=== PATIENT | male | born 1960 | race Hispanic/Latino ===

== ENCOUNTER 2025-01-26 20:05 | Inpatient (IN) | payer SELFPAY ==
[~2025-01-26] VITALS: Ht 167.6 cm; Wt 81.6 kg
[2025-01-26 20:54] LABS: IMMATURE GRANULOCYTE ABSOLUTE 0.07 K/uL (0-1); NUCLEATED RED BLOOD CELLS 0.0 % (0.0-0.19); PLATELET COUNT (AUTO) 296 K/uL (130-400); RED BLOOD CELL COUNT(AUTO) 4.29 MIL/uL (4.50-6.20); RED CELL DISTRIBUTION WIDTH 12.7 % (11.0-15.5); WHITE BLOOD COUNT (AUTO) 15.8 K/uL (4.8-10.8)
[2025-01-26 21:05] LABS: CREATININE 1.3 mg/dL (0.5-1.3); GLOMERULAR FILTR. RATE CALC 62.0 mL/min (>90); GLUCOSE,RANDOM 181.0 mg/dL (70-105); SODIUM SERUM 136.0 mmol/L (136-145); UREA NITROGEN, BLOOD 10.0 mg/dL (7-18)
[2025-01-26 21:06] LABS: INR 1.02 (0.85-1.15)
[2025-01-26 21:09] LABS: ALCOHOL, BLOOD 5.0 mg/dL (0-10); ASPARTATE AMINOTRANSFERASE 24.0 U/L (10-37); CREATINE KINASE, TOTAL 120.0 U/L (21-232); TOTAL PROTEIN, SERUM 7.6 g/dL (6.0-8.3)
[2025-01-26] MEDS: 0.9%NACL 1000ML 1,000 ML IV ONE (21:19)
--- NOTE | 2025-01-26 21:36 | ERN ---
ED Note History of Present Illness Stated Complaint: RECTAL BLEED Chief Complaint: Rectal Bleed Time Seen by MD: 20:14 Time Seen by Midlevel: 20:14 Dictation: The patient is a 64-year-old male with a history of alcohol abuse who presents to the emergency department with complaints of syncopal episode onset prior to arrival patient reports he was walking to go to the restroom when he had the syncope episode falling forward hitting his forehead. Patient reports LOC for about 5 minutes. Denies any seizure activity. Patient denies any use of blood thinners. Denies any extremity pain or neck pain. Patient reports that he also started having bright red blood. Reports this has happened in the past and they told him he had an ulcer. Reports an episode of vomiting but reports it was his food. Complaints of lower abdominal pain. Patient reports that he drinks one beer a day. Allergies: Coded Allergies: No Known Allergies (Unverified Allergy, Unknown, 01/26/25) Home Meds No Active Prescriptions or Reported Meds Past Medical History Past Medical History: Other Additional Past Medical Hx: ALCOHOL ABUSE Surgical History: Unknown RN Note Reviewed/Agreed w/PFSH: Yes Review of System Dictation Constitutional: Negative for fever,chills, and weight loss Eyes: Negative for injury, pain,redness, and discharge ENT: Negative for injury,pain or swelling Cardiovascular: Negative for chest pain, palpitations, and edema Respiratory: Negative for shortness of breath, cough, and wheezing, Abdomen/GI: Negative for constipation positive for abdominal pain, nausea, vomiting, blood stools Back: Negative for injury and pain : Negative for injury, bleeding and discharge MS/Extremity: Negative for injury and deformity Skin: Negative for rash, and discoloration positive for laceration to forehead Neuro: Negative for headache, weakness, numbness, tingling, and seizure positive for syncope Psych: Negative for suicide ideation, homicidal ideation, and hallucinations Initial Vital Sign VS Vital Signs Date Time Temp Pulse Resp B/P (MAP) Pulse Ox O2 Delivery O2 Flow Rate FiO2 01/26/25 20:07 98.6 110 16 128/86 100 Room Air 0 01/27/25 01:59 21 Physical Exam Dictation Vital Signs reviewed General Appearance: Alert, oriented x 3, no acute distress, well developed, nourished. Head and Face: non-traumatic. Eyes: PERRL, pink conjunctivas, eyelid no trauma, anterior chamber with arcus senilis. Ears: Pinnas intact and no signs of trauma or erythema ear canals clear and no discharge TM no erythema Nose: No discharge, no bleeding. Oropharynx: Mouth normal, tongue pink. pharynx clear,no erythema, tonsils no exudates, no abscesses noted, mucous membrane moist Neck: Supple, non-tender, no thyromegaly, no masses, no JVD, no bruits Breast:Deferred Chest:No tenderness, no crepitus, no paradoxical movement, no retractions Lungs:Clear, well-ventilated, symmetric, no rales, no wheezing, no rhonchi, no stridor, good breath sounds bilaterally Heart: Regular rate, regular rhythm, no murmur, no gallops Vascular: no peripheral edema, Abdomen: Soft, positive bowel sounds, nondistended, no guarding, nontender, no rebound, no masses no hepatomegaly, no splenomegaly, no Johnson's sign, no hernias. Rectal: Deferred Genital: Deferred Neurological: Normal speech, motor function intact, sensory function intact Musculoskeletal: Neck nontender, full range of motion, back nontender, full range of motion, Extremities: nontender, full range of motion Skin: Color pink, dry, no turgor, no rash, no abrasions, no contusions. Small superficial laceration to right forehead about 1.5 cm Lymphatic: Deferred Results (Laboratory/Radiology) Laboratory/Radiology Laboratory Tests Test 01/29/25 03:29 01/29/25 15:50 01/30/25 03:27 01/30/25 18:15 White Blood Count 10.1 K/uL (4.8-10.8) 7.6 K/uL (4.8-10.8) 7.8 K/uL (4.8-10.8) Red Blood Count 2.57 MIL/uL (4.50-6.20) L 2.27 MIL/uL (4.50-6.20) L 2.82 MIL/uL (4.50-6.20) #L Hemoglobin 8.2 g/dL (14.0-18.0) L 7.3 g/dL (14.0-18.0) L 8.8 g/dL (14.0-18.0) #L 8.9 g/dL (14.0-18.0) L Hematocrit 24.2 % (42-54) L 21.8 % (42-54) L 26.1 % (42-54) L 26.2 % (42-54) L Mean Corpuscular Volume 94.2 fL (79-99) 96.0 fL (79-99) 92.6 fL (79-99) Mean Corpuscular Hemoglobin 31.9 pg (27.0-33.0) 32.2 pg (27.0-33.0) 31.2 pg (27.0-33.0) Mean Corpuscular Hemoglobin Concent 33.9 g/dL (32.0-36.0) 33.5 g/dL (32.0-36.0) 33.7 g/dL (32.0-36.0) Red Cell Distribution Width 12.7 % (11.0-15.5) 13.1 % (11.0-15.5) 13.9 % (11.0-15.5) Platelet Count 231 K/uL (130-400) 214 K/uL (130-400) 217 K/uL (130-400) Mean Platelet Volume 9.8 fL (7.5-10.5) 9.5 fL (7.5-10.5) 9.6 fL (7.5-10.5) Nucleated Red Blood Cells 0.0 % (0.0-0.19) 0.0 % (0.0-0.19) 0.0 % (0.0-0.19) Sodium Level 141 mmol/L (136-145) 142 mmol/L (136-145) 142 mmol/L (136-145) Potassium Level 3.7 mmol/L (3.5-5.1) 3.8 mmol/L (3.5-5.1) 3.5 mmol/L (3.5-5.1) Chloride Level 105 mmol/L (101-111) 108 mmol/L (101-111) 106 mmol/L (101-111) Carbon Dioxide Level 29 mmol/L (21-32) 28 mmol/L (21-32) 29 mmol/L (21-32) Blood Urea Nitrogen 7 mg/dL (7-18) 8 mg/dL (7-18) 5 mg/dL (7-18) L Creatinine 1.1 mg/dL (0.5-1.3) 1.0 mg/dL (0.5-1.3) 0.9 mg/dL (0.5-1.3) Glomerular Filtration Rate Calc 75 mL/min (>90) 85 mL/min (>90) 96 mL/min (>90) Random Glucose 113 mg/dL (70-105) H 92 mg/dL (70-105) 90 mg/dL (70-105) Total Calcium 7.9 mg/dL (8.5-10.1) L 7.2 mg/dL (8.5-10.1) L 7.6 mg/dL (8.5-10.1) L Magnesium Level 2.00 mg/dL (1.80-2.40) 2.00 mg/dL (1.80-2.40) 2.00 mg/dL (1.80-2.40) Total Bilirubin 0.2 mg/dL (0.2-1.0) Aspartate Amino Transf (AST/SGOT) 19 U/L (10-37) Alanine Aminotransferase (ALT/SGPT) 19 U/L (12-78) Alkaline Phosphatase 40 U/L (50-136) L Total Protein 5.8 g/dL (6.0-8.3) L Albumin 2.6 g/dL (3.5-5.0) L Test 01/30/25 18:30 01/31/25 04:28 White Blood Count 9.8 K/uL (4.8-10.8) # 10.4 K/uL (4.8-10.8) Red Blood Count 2.86 MIL/uL (4.50-6.20) L 2.65 MIL/uL (4.50-6.20) L Hemoglobin 9.0 g/dL (14.0-18.0) L 8.4 g/dL (14.0-18.0) L Hematocrit 26.5 % (42-54) L 24.3 % (42-54) L Mean Corpuscular Volume 92.7 fL (79-99) 91.7 fL (79-99) Mean Corpuscular Hemoglobin 31.5 pg (27.0-33.0) 31.7 pg (27.0-33.0) Mean Corpuscular Hemoglobin Concent 34.0 g/dL (32.0-36.0) 34.6 g/dL (32.0-36.0) Red Cell Distribution Width 14.2 % (11.0-15.5) 14.2 % (11.0-15.5) Platelet Count 293 K/uL (130-400) # 267 K/uL (130-400) Mean Platelet Volume 9.8 fL (7.5-10.5) 9.7 fL (7.5-10.5) Immature Granulocyte % (Auto) 1.4 % (0-1) H 0.5 % (0-1) Neutrophils (%) (Auto) 58.8 % (40.0-77.0) 70.1 % (40.0-77.0) Lymphocytes (%) (Auto) 31.1 % (21.0-51.0) 22.2 % (21.0-51.0) Monocytes (%) (Auto) 7.1 % (3.0-13.0) 5.9 % (3.0-13.0) Eosinophils (%) (Auto) 1.2 % (0.0-8.0) 1.1 % (0.0-8.0) Basophils (%) (Auto) 0.4 % (0.0-5.0) 0.2 % (0.0-5.0) Neutrophils # (Auto) 5.7 K/uL (1.8-7.7) 7.3 K/uL (1.8-7.7) Lymphocytes # (Auto) 3.0 K/uL (1.0-4.8) 2.3 K/uL (1.0-4.8) Monocytes # (Auto) 0.7 K/uL (0.1-1.0) 0.6 K/uL (0.1-1.0) Eosinophils # (Auto) 0.12 K/uL (0.00-0.70) 0.11 K/uL (0.00-0.70) Basophils # (Auto) 0.04 K/uL (0.00-0.20) 0.02 K/uL (0.00-0.20) Absolute Immature Granulocyte (auto 0.14 K/uL (0-1) 0.05 K/uL (0-1) Nucleated Red Blood Cells 0.4 % (0.0-0.19) H 0.3 % (0.0-0.19) H REASON: syncope ORDERING PHYSICIAN: JAIRO BUSH PROCEDURE: C SPIN WO - CT CERVICAL SPINE W/O CONTRAST EXAM: CT Cervical Spine Without IV contrast. CLINICAL HISTORY: Patient presents with syncope. TECHNIQUE: Axial computed tomography images of the cervical spine without intravenous contrast. Sagittal and coronal reformatted images were generated. COMPARISON: None provided. FINDINGS: ALIGNMENT: Straightening of the cervical spine. DEGENERATIVE CHANGES: Multilevel spondylotic changes manifest as multilevel marginal osteophytes, multilevel facet joint arthropathy, and uncovertebral hypertrophy. Diffuse disc bulge with bilateral overlapping uncovertebral osteophytes at C4-C5, C5-C6, and C6-C7 levels indents the anterior subarachnoid space. No significant canal stenosis or neural foraminal narrowing is evident. SOFT TISSUES: The prevertebral soft tissues are within normal limits. BONES: No acute fracture or aggressively appearing osseous lesion. IMPRESSION: Straightening of the cervical spine. Multilevel spondylotic changes with disc bulges and uncovertebral osteophytes at C4-C5, C5-C6, and C6-C7 levels indenting the anterior subarachnoid space. No acute fracture or aggressively appearing osseous lesion. /[place] REASON: syncope ORDERING PHYSICIAN: JAIRO BUSH PROCEDURE: CXR1VW - CHEST 1VW EXAM: CR Chest, 1 View. CLINICAL HISTORY: syncope COMPARISON: None provided. FINDINGS: LUNGS: The lungs show no infiltrate or other acute finding. PLEURAL SPACES: No pleural effusion or pneumothorax. MEDIASTINUM: Cardiac size and mediastinal contours within normal limits. BONES: No aggressive appearing osseous lesion seen. IMPRESSION: No acute cardiopulmonary pathology is evident. /[place] REASON: syncope ORDERING PHYSICIAN: JAIRO BUSH PROCEDURE: HEAD WO - CT HEAD/BRAIN W/O CONTRAST EXAM: CT Head Without IV contrast. CLINICAL HISTORY: Syncope. TECHNIQUE: Axial computed tomography images of the head/brain without intravenous contrast. COMPARISON: None provided. FINDINGS: BRAIN: Multiple periventricular hypodensities extending in bilateral fronto-parietal lobes, concerning for chronic microangiopathic ischemic changes. Mild diffuse cerebral atrophy in the form of prominent cortical sulci, basal cisterns, and bilateral sylvian fissures. Chronic lacunar infarcts in the right thalamus and left lentiform nucleus. No evidence of acute hemorrhage. No mass lesion. No CT evidence for acute territorial infarct. No midline shift or extra-axial collections. VENTRICLES: No hydrocephalus. ORBITS: The orbits are unremarkable. SINUSES AND MASTOIDS: The paranasal sinuses and mastoid air cells are clear. BONES: No fracture. SOFT TISSUES: Unremarkable. IMPRESSION: Chronic microangiopathic ischemic changes with periventricular hypodensities. Mild diffuse cerebral atrophy with prominent cortical sulci, basal cisterns, and bilateral sylvian fissures. Chronic lacunar infarcts in the right thalamus and left lentiform nucleus. No acute intracranial abnormality. /[place] SERVICE REASON: Abdominal Pain,rectal bleeding ORDERING PHYSICIAN: JAIRO BUSH PROCEDURE: ABD PEL W - CT ABDOMEN/PELVIS W/CONTRAST EXAM: CT Abdomen and Pelvis with IV contrast CLINICAL HISTORY: Abdominal pain. Rectal bleeding. TECHNIQUE: Thin collimated axial CT images of the abdomen and pelvis with intravenous contrast were obtained with sagittal and coronal reformatted images also submitted. CT scan is done according to ALARA (As Low As Reasonably Achievable). COMPARISON: None. FINDINGS: Unremarkable visualized lung parenchyma. No focal abnormality within the pancreas, spleen, adrenals, or kidneys. 1.4 cm hypodense focus in the left lobe of the liver. A 1.3 cm-sized calculus within the gallbladder lumen with no acute cholecystitis. Scattered colonic diverticula. Soft segment concentric wall thickening around the hepatic flexure of the colon, which could be secondary to acute diverticulitis, the possibility of neoplastic thickening cannot be excluded. There is no abnormality within the urinary bladder. Unremarkable reproductive organs. Abdominal and pelvic vessels are patent. No lymphadenopathy. No free fluid. There is no acute osseous abnormality. IMPRESSIONS: Scattered colonic diverticula. Soft segment concentric wall thickening around the hepatic flexure of the colon, which could be secondary to acute diverticulitis, the possibility of neoplastic thickening cannot be excluded. Cholelithiasis with no acute cholecystitis. /[place] Labs Reviewed?: Yes ED Course ED Course Orders Procedure Category Date Status Time Pathology Request LAB 01/28/25 In Process Tissue 07:20 Cbc Without LAB 01/30/25 Complete Differential 04:00 Basic Metabolic Panel LAB 01/30/25 Complete 04:00 Magnesium LAB 01/30/25 Complete 04:00 Propofol 20ml Vial PHA 01/29/25 In Process (Diprivan 20ml Vial) 14:28 Propofol 20ml Vial PHA 01/29/25 Complete (Diprivan 20ml Vial) 14:28 Lidocaine Pf PHA 01/29/25 Complete 100mg/5ml (2%) 14:29 Cbc Without LAB 01/29/25 Complete Differential 14:43 Comprehensive LAB 01/29/25 Complete Metabolic Panel 14:43 Magnesium LAB 01/29/25 Complete 14:43 Clear Liquid DIET 01/29/25 Complete Dinner Pantoprazole 40mg Tab PHA 01/30/25 In Process (Protonix 40mg Tab 09:00 Rbc-Active Bleeding BBK 01/29/25 Complete 16:27 Infusion Bld Prod Qd PCU 01/29/25 Complete 17:21 Pathology Request LAB 01/29/25 In Process Tissue 14:48 Full Liquid DIET 01/30/25 Complete Breakfast Nm Gi Blood Loss Imag NM 01/30/25 Resulted 11:22 *Nursing CPOE 01/30/25 Transmitted Communication: 11:25 Transfer To: CPOE 01/30/25 Transmitted 12:35 Hemoglobin And LAB 01/30/25 Complete Hematocrit 18:19 Lactated Ringers PHA 01/30/25 In Process 1000ml (Lactated 19:00 Cbc With Differential LAB 01/30/25 Complete 18:58 Pantoprazole 40mg Inj PHA 01/30/25 Complete (Protonix 40mg Inj 20:00 Cbc With Differential LAB 01/31/25 Complete 04:00 Gi Soft/[place] Diet DIET 01/31/25 Transmitted Dinner Cancel Discharge CPOE 01/31/25 Transmitted 14:58 Vital Signs Date Time Temp Pulse Resp B/P (MAP) Pulse Ox O2 Delivery O2 Flow Rate FiO2 01/31/25 20:00 Room Air* 0 21 01/31/25 20:00 98.2 78 18 122/75 98 Room Air 01/31/25 16:00 98.1 73 16 133/70 98 Room Air 01/31/25 12:00 98.1 84 17 121/77 99 Room Air 01/31/25 08:05 99 Room Air* 0 01/31/25 08:00 98.1 72 16 107/65 99 Room Air 01/31/25 04:52 98.2 78 16 123/68 99 Room Air 01/31/25 00:00 98.4 89 16 128/72 97 Room Air 01/30/25 20:00 Room Air* 0 01/30/25 20:00 98.2 88 16 118/78 99 Room Air 01/30/25 16:00 98.1 74 18 146/82 99 Room Air 01/30/25 12:00 97.9 67 16 151/82 100 Room Air 01/30/25 10:15 98 Room Air* 0 01/30/25 08:00 98.1 58 16 128/77 98 Room Air 01/30/25 04:00 98.1 57 17 119/67 99 Room Air 01/30/25 00:00 98.1 53 18 114/71 99 Room Air 01/29/25 21:35 98.2 60 18 127/76 97 Room Air 01/29/25 20:35 98.2 66 18 127/71 98 Room Air 01/29/25 20:00 98 Room Air* 0 01/29/25 19:35 98.2 63 18 114/63 96 Room Air 01/29/25 18:35 60 18 123/76 98 Room Air 01/29/25 17:35 65 18 124/65 98 Room Air 01/29/25 17:05 60 18 116/57 98 Room Air 01/29/25 16:35 66 18 138/86 98 Room Air 01/29/25 16:20 58 18 124/69 98 Room Air 01/29/25 16:05 63 18 122/57 98 Room Air 01/29/25 15:50 58 18 112/67 98 Room Air 01/29/25 15:35 97.9 60 17 119/66 98 Room Air 01/29/25 15:30 97.3 61 15 107/65 97 Room Air 21 01/29/25 15:25 97.3 59 15 106/62 97 Room Air 21 12/18/25 15:20 97.3 61 15 109/62 97 Room Air 21 01/29/25 15:15 97.3 59 15 119/57 97 Room Air 21 01/29/25 15:10 97.3 61 15 118/60 97 Room Air 21 01/29/25 15:05 97.3 59 15 109/65 95 Room Air 21 01/29/25 15:00 97.3 62 15 106/61 96 Nasal Cannula 1.0 22 01/29/25 14:55 97.3 62 15 104/63 96 Nasal Cannula 2.0 24 01/29/25 14:50 97.3 61 15 93/60 96 Nasal Cannula 3.0 28 01/29/25 14:25 Mask 10.0 01/29/25 14:25 Mask 01/29/25 12:00 98.1 66 16 130/75 97 Room Air 01/29/25 09:30 Room Air* 0 21 01/29/25 08:00 98.4 64 17 118/70 97 Room Air 01/29/25 04:00 98.4 64 17 115/79 98 Room Air Medical Decision Making MDM MDM: The patient is a 64-year-old male with a history of alcohol abuse who presents to the emergency department with complaints of syncopal episode onset prior to arrival patient reports he was walking to go to the restroom when he had the syncope episode falling forward hitting his forehead. Patient reports LOC for about 5 minutes. Denies any seizure activity. Patient denies any use of blood thinners. Denies any extremity pain or neck pain. Patient reports that he also started having bright red blood. Reports this has happened in the past and they told him he had an ulcer. Reports an episode of vomiting but reports it was his food. Complaints of lower abdominal pain. Patient reports that he drinks one beer a day. CBC showed leukocytosis, mild normocytic anemia, chemistry showed mild hyp ochloremia, negative troponin, negative liver enzymes, fecal occult was positive. Urinalysis was unremarkable. CT abdomen and pelvis showed diverticulitis. Patient with bright red rectal bleeding. No wounds noted to rectum. Patient received IV fluids, antibiotics. Patient will be admitted for further evaluation and management. Differential diagnosis: Dehydration, GI bleed, diverticulitis, intracerebral hemorrhage, anemia, alcohol intoxication, sepsis Comorbidities: Alcoholism Tests considered and not ordered secondary to shared decision making include: none Previous outside records reviewed: none Risk of complication and/or morbidity or mortality of patient management: The patient meets criteria for admission. Need for emergency major/minor surgery: No There are no social concerns with this patient. I independently interpreted the tests I ordered (labs, urinalysis, etc.). I discussed the case with the hospitalist for admission. Avi CORDON who accepts admission I discussed the case with the following specialists: none. Historian: pateint. I independently interpreted imaging studies and EKGs that I ordered (US, CT, XR, EKG, etc.). External chart review: none. Medical management and examination interpretation discussions were had by me with other qualified healthcare professionals as indicated for the patient's care. DX & DISP Disposition: Inpatient Decision to Admit Date: Jan 27, 2025 Departure Impression: Primary Impression: Diverticulitis Additional Impressions: GI bleed, Leukocytosis, Syncope, Anemia, Forehead laceration Condition: Stable Scripts No Active Prescriptions or Reported Meds Referrals: SELF,REFERRAL (PCP) I have reviewed the case, and I agree with, Diagnosis and Plan JAIRO BUSH [facility] Jan 26, 2025 21:36
--- NOTE | 2025-01-26 21:39 | HMCIMG ---
EXAM: CT Head Without IV contrast. CLINICAL HISTORY: Syncope. TECHNIQUE: Axial computed tomography images of the head/brain without intravenous contrast. COMPARISON: None provided. FINDINGS: BRAIN: Multiple periventricular hypodensities extending in bilateral fronto-parietal lobes, concerning for chronic microangiopathic ischemic changes. Mild diffuse cerebral atrophy in the form of prominent cortical sulci, basal cisterns, and bilateral sylvian fissures. Chronic lacunar infarcts in the right thalamus and left lentiform nucleus. No evidence of acute hemorrhage. No mass lesion. No CT evidence for acute territorial infarct. No midline shift or extra-axial collections. VENTRICLES: No hydrocephalus. ORBITS: The orbits are unremarkable. SINUSES AND MASTOIDS: The paranasal sinuses and mastoid air cells are clear. BONES: No fracture. SOFT TISSUES: Unremarkable. IMPRESSION: Chronic microangiopathic ischemic changes with periventricular hypodensities. Mild diffuse cerebral atrophy with prominent cortical sulci, basal cisterns, and bilateral sylvian fissures. Chronic lacunar infarcts in the right thalamus and left lentiform nucleus. No acute intracranial abnormality. /[place]
--- NOTE | 2025-01-26 21:56 | HMCIMG ---
EXAM: CR Chest, 1 View. CLINICAL HISTORY: syncope COMPARISON: None provided. FINDINGS: LUNGS: The lungs show no infiltrate or other acute finding. PLEURAL SPACES: No pleural effusion or pneumothorax. MEDIASTINUM: Cardiac size and mediastinal contours within normal limits. BONES: No aggressive appearing osseous lesion seen. IMPRESSION: No acute cardiopulmonary pathology is evident. /[place]
[2025-01-27] VITALS (7 sets, daily range): BP systolic 115–169; BP diastolic 66–83; PULSE 57–97; RESP 16–19; TEMP 96.8–98.6; O2SAT 57–99
--- NOTE | 2025-01-27 00:20 | HMCIMG ---
EXAM: CT Abdomen and Pelvis with IV contrast CLINICAL HISTORY: Abdominal pain. Rectal bleeding. TECHNIQUE: Thin collimated axial CT images of the abdomen and pelvis with intravenous contrast were obtained with sagittal and coronal reformatted images also submitted. CT scan is done according to ALARA (As Low As Reasonably Achievable). COMPARISON: None. FINDINGS: Unremarkable visualized lung parenchyma. No focal abnormality within the pancreas, spleen, adrenals, or kidneys. 1.4 cm hypodense focus in the left lobe of the liver. A 1.3 cm-sized calculus within the gallbladder lumen with no acute cholecystitis. Scattered colonic diverticula. Soft segment concentric wall thickening around the hepatic flexure of the colon, which could be secondary to acute diverticulitis, the possibility of neoplastic thickening cannot be excluded. There is no abnormality within the urinary bladder. Unremarkable reproductive organs. Abdominal and pelvic vessels are patent. No lymphadenopathy. No free fluid. There is no acute osseous abnormality. IMPRESSIONS: Scattered colonic diverticula. Soft segment concentric wall thickening around the hepatic flexure of the colon, which could be secondary to acute diverticulitis, the possibility of neoplastic thickening cannot be excluded. Cholelithiasis with no acute cholecystitis. /[place]
[2025-01-27] MEDS: OCTYL 2-CYANOACRYLATE 1 EACH TP ONE (00:25)
[2025-01-27 00:55] LABS: APPEARANCE,URINE CLEAR (CLEAR); GLUCOSE, URINE (UA) NEGATIVE (NEGATIVE); LEUKOCYTE ESTERASE ,URINE NEGATIVE Leu/uL (NEGATIVE); NITRATE,URINE NEGATIVE (NEGATIVE); OCCULT BLOOD,URINE +- (TRACE) (NEGATIVE)
[2025-01-27 00:56] LABS: ADD UA MICROSCOPIC YES
[2025-01-27 01:02] LABS: AMPHET/METH SCREEN,URINE NEGATIVE (NEGATIVE); BARBITURATE SCREEN, URINE NEGATIVE (NEGATIVE); CANNABINOID SCREEN,URINE NEGATIVE (NEGATIVE); COCAINE SCREEN,URINE NEGATIVE (NEGATIVE)
--- NOTE | 2025-01-27 01:40 | HP ---
History of Present Illness Reason for Visit: Hematochezia History of Present Illness Mr. Vitor Cole is a 64-year-old male that was seen and examined today on 01/27/2025. Patient is a good historian of personal health. Patient's daughters at bedside Patient reports that he came to the emergency department with a chief complaint of hematochezia. Onset was 01/26/2025 at 3:00 p.m.. Location is rectum. Duration is on and off. Patient reports three episodes. Character is described as bright red blood in the toilet bowl. There was no alleviating factors. Symptoms are aggravated with defecation. Patient reports associated dizziness and subsequent fall on 3rd episode of hematochezia. Patient also reports that he chronically has constipation. Today in the emergency department WBCs 15.8, left shift neutrophils 82.3%, lactic acid 2.5, urinalysis unremarkable, toxicology unremarkable, stool was positive for occult blood, CT of C-spine shows spondylosis, chest x-ray is unremarkable, CT of the head shows chronic ischemic changes. CT of abdomen and pelvis shows diverticulitis. Emergency room physician recommended that patient be admitted with a diagnosis of GI bleed and diverticulitis. Past Medical History ADDITIONAL PAST MEDICAL HISTORY: [Denies] SOCIAL HISTORY: [Negative for smoking. Patient drinks one beer daily that is 24 oz. Patient denies drug use. Patient lives with his , Oksana Adler. Patient is typically independent of all his ADLs. Patient denies difficulty pain is bills.] SURGICAL HISTORY: [Denies] Review of Systems General: No Fever, No Chills, No Night Sweats, No Fatigue, No Malaise, No Appetite, No Other HEENT: No Head Aches, No Visual Changes, No Eye Pain, No Ear Pain, No Dysphasia, No Sinus Congestion, No Post Nasal Drip, No Sore Throat, No Other Pulmonary: No Dyspnea, No Cough, No Pleuritic Chest Pain, No Other Cardiovascular: Lt Headedness; No: Chest Pain, Palpitations, Orthopnea, Paroxysmal Noc. Dyspnea, Edema, Other Gastrointestinal: Constipation, Hematochezia; No: Nausea, Vomiting, Abdominal Pain, Diarrhea, Melena, Other Genitourinary: No Dysuria, No Frequency, No Incontinence, No Hematuria, No Retention, No Other Musculoskeletal: No: other, neck pain, shoulder pain, arm pain, back pain, hand pain, leg pain, foot pain Skin: No Urticaria, No Rash, No Other Neurological: No: Weakness, Numbness, Incoordination, Change in speech, Confusion, Seizures, Other Allergies: Coded Allergies: No Known Allergies (Unverified Allergy, Unknown, 01/26/25) No Active Prescriptions or Reported Meds Exam Vital Signs Vital Signs Date Time Temp Pulse Resp B/P (MAP) Pulse Ox O2 Delivery O2 Flow Rate FiO2 01/26/25 20:07 98.6 110 16 128/86 100 Room Air 0 General Appearance: Alert, Oriented X3, Cooperative, No acute distress HEENT: Atraumatic, PERRLA, EOMI Respiratory: Clear to auscultation, Normal air movement, NL respiratory effort Cardiovascular: Regular rate, Regular rhythm, Normal S1, Normal S2 Abdominal: Normal bowel sounds, Soft, Other (Positive left lower quadrant tenderness) Extremities: Normal pulses Neuro: Normal speech, Strength at 5/5 X4 ext, Sensation intact, Cranial nerves 3-12 NL Psych/Mental Status: Mental status NL, Mood NL, Thoughts/Content NL Assessment/Plan ASSESSMENT: [ Sepsis, POA, clinical sepsis criteria, heart rate 115, lactic acid 2.5, WBCs 15.8, identified source intra-abdominal GI bleed, POA Diverticulitis, POA Leukocytosis, POA Hyperlactatemia, POA PLAN: [ Admit patient to medical floor as inpatient status. Place patient on telemetry monitoring. Fluid resuscitation with 0.9% NS 30 mL/kg. Empiric antibiotic therapy with Zosyn. Check blood culture, follow up with the results Repeat lactic acid in a.m. Check procalcitonin, follow up with the results Consult Gastroenterology for evaluation and further recommendations. Keep patient NPO. Patient received Protonix 80 mg IV times 1 Protonix drip per hospital protocol Sandostatin 50 mcg IV times 1. Sandostatin drip per hospital protocol. Trend hemoglobin and hematocrit every 6 hours. Type and screen. Transfuse packed red blood cells for hemoglobin less than 7 mg/dL. Consult General surgery Service for evaluation and further recommendations. GI prophylaxis, Protonix drip as stated above DVT prophylaxis, avoid anticoagulation at this time due to impending Gastroenterology and General surgery evaluation place patient on Will's and SCDs. ADVANCED CARE PLANNING 1. Which of the following were discussed? Hospice Care - Yes Therapeutic options - yes Advance Directives - Yes - patient states he does not have any advance directives in place at this time, however his can make decisions for him if he becomes unable. Other discussions - patient wishes to remain a full code at this time 2. Discussed with who? Patient 3. Voluntary nature of this service was explained to the patient? Yes 4. Amount of time spent - ___16 minutes____ 5. Reviewed by Physician? (if this service was performed by NPP) Yes This document was generated in part using voice recognition software, occasional wrong word or sound alike substitutions may have occurred due to the inherent limitations of voice recognition software. Read the chart carefully and recognize using context, where the substitutions have occurred. Although every effort was made to edit the content, receptionist secretary and typing errors may occur ATTESTATION BY PHYSICIAN I have seen and examined the patient. I reviewed the documentation, medical decision making, and treatment plan as noted by the mid-level provider above. I agree with the findings and plan of care.] JUSTO DUQUE [facility] Jan 27, 2025 01:40
--- NOTE | 2025-01-27 01:51 | NUR ---
REPORT GIVEN TO JUAN VELÁZQUEZ
--- NOTE | 2025-01-27 02:03 | NUR ---
REPORT CALLED TO BRITTNEE GAY
[2025-01-27] MEDS: 0.9%NACL 1000ML 1,000 ML IV SCH (02:30)
[2025-01-27] MEDS: 0.9%NACL 1000ML 2,448 ML IV ONE (03:21)
[2025-01-27] MEDS: ZOSYN 3.375GM +NS 50ML IV SCH (03:41)
[2025-01-27 03:45] LABS: IMMATURE GRANULOCYTE ABSOLUTE 0.04 K/uL (0-1); NUCLEATED RED BLOOD CELLS 0.0 % (0.0-0.19); PLATELET COUNT (AUTO) 255 K/uL (130-400); RED BLOOD CELL COUNT(AUTO) 3.82 MIL/uL (4.50-6.20); RED CELL DISTRIBUTION WIDTH 12.7 % (11.0-15.5); WHITE BLOOD COUNT (AUTO) 10.8 K/uL (4.8-10.8)
[2025-01-27 03:56] LABS: INR 1.01 (0.85-1.15)
[2025-01-27 04:03] LABS: CREATININE 0.9 mg/dL (0.5-1.3); GLOMERULAR FILTR. RATE CALC 96.0 mL/min (>90); GLUCOSE,RANDOM 114.0 mg/dL (70-105); SODIUM SERUM 136.0 mmol/L (136-145); UREA NITROGEN, BLOOD 10.0 mg/dL (7-18)
[2025-01-27 04:06] LABS: PHOSPHORUS 3.8 mg/dL (2.5-4.9)
[2025-01-27] MEDS ORDERED: IOHEXOL-350 75 ML VIAL IV ONE (07:15)
--- NOTE | 2025-01-27 08:38 | EKG ---
[facility] Test Date: 2025-01-26 Test Time: 21:13:18 Pat Name: JOSUÉ WATSON Department[facility] Patient ID: [id number] Room: 426 1 Gender: M Box Toe Buffer: 1869 : 1960 Requested By: JAIRO BUSH Order Number: [id number] Reading MD: Surinder Gillette Measurements Intervals [place] Rate: 95 P: 33 IN: 160 QRS: 19 QRSD: 85 T: 31 QT: 345 QTc: 434 Interpretive Statements Sinus rhythm No previous ECG available for comparison Electronically Signed On 01-27-2025 23:47:26 SENIOR TECHNICAL TRAINER by Surinder Gillette Please click the below link to view image of tracing.
--- NOTE | 2025-01-27 08:47 | NUR ---
DCP: HOME Pt and Oksana Adler live with their daughter Kori Adler. Pt is undocumented, no govt assistance, does not work. Pt able to complete ADLS, uses no DME or in home care services a this time. Community resources given, will return to daughter's home
--- NOTE | 2025-01-27 11:12 | NUR ---
GI CONSULT DR. CANO PAGED FOR NEW CONSULT DARIA ACOSTA NP CALLED BACK AND AWARE OF NEW CONSULT
--- NOTE | 2025-01-27 11:18 | CONS ---
GASTROENTEROLOGY CONSULTATION NOTE Date of Consultation: Jan 27, 2025 Time of Consultation: 11:18 History of Present Illness: This is a 64-year-old male with past medical history of alcohol use who presented due to hematochezia. Patient was found to have dizziness and fall at home. Hemoglobin has been trending down from 13.5-9.6 and imaging revealing acute diverticulitis. No history of EGD or colonoscopy. Review of Systems: CONSTITUTIONAL: No malaise or change in sensation of wellbeing. ENMT: No rhinorrhea, otorrhea, sinus pain, ear ache. CARDIOVASCULAR: No angina, palpitations, orthopnea or paroxysmal dyspnea. RESPIRATORY: No SOB. GASTROINTESTINAL: No abdominal pain, nausea, vomiting, diarrhea, hematemesis, melena or change in the patient's habitual bowel movements consistency/number. GENITOURINARY: No dysuria, hematuria or change in bladder continence. MUSCULOSKELETAL: No new muscle pain or decrease in muscular strength. No new joint swelling, redness or tenderness. SKIN: No new rash. Past Medical History: ADDITIONAL PAST MEDICAL HISTORY: [Denies] SOCIAL HISTORY: [Negative for smoking. Patient drinks one beer daily that is 24 oz. Patient denies drug use. Patient lives with his , Oksana Adler. Patient is typically independent of all his ADLs. Patient denies difficulty pain is bills.] SURGICAL HISTORY: [Denies] Coded Allergies: No Known Allergies (Unverified Allergy, Unknown, 01/26/25) Physical Exam: GEN: Awake, alert, oriented in person, time and place, and in no acute distress. HEENT: No sinus tenderness. Tympanic membranes were not examined. No rhinorrhea. Oral pharyngeal mucosa is pink, moist and within normal limits. Neck is supple with no cervical lymphadenopathy, thyromegaly or JVD. CHEST: Inspection, palpation and percussion of the chest were unremarkable. Lung auscultation revealed normal breath sounds bilaterally. CARDIAC: PMI is within normal limits. Heart sounds are regular. Normal S1, S2. No gallop or murmur. ABD: Soft, non-tender and not distended. No peritoneal signs on palpation. No organomegaly. Normal bowel sounds. EXT: No cyanosis or clubbing. No edema. SKIN: Intact. No rashes. JOINTS: No evidence of synovitis or acute arthritis. NEURO: Alert and oriented to name, place and person. Cranial nerve examination is unremarkable. No focal motor deficits. Normal speech. Gait is normal. Strength is normal. Vital Sign (Last 24 Hours) 01/27/25 01/27/25 02:20 08:00 Temp 98.4 Pulse 64 Resp 18 B/P (MAP) 169/69 Pulse Ox 100 O2 Delivery Room Air O2 Flow Rate 0 FiO2 21 Laboratory: [ ] Laboratory: Test 01/27/25 09:36 01/27/25 03:36 01/27/25 00:48 01/26/25 22:15 Range/Units Hemoglobin 9.6 L 14.0-18.0 g/dL Hematocrit 27.9 #L 42-54 % White Blood Count 10.8 # 4.8-10.8 K/uL Red Blood Count 3.82 L 4.50-6.20 MIL/uL Mean Corpuscular Volume 92.7 79-99 fL Mean Corpuscular Hemoglobin 31.4 27.0-33.0 pg Mean Corpuscular Hemoglobin Concent 33.9 32.0-36.0 g/dL Red Cell Distribution Width 12.7 11.0-15.5 % Platelet Count 255 130-400 K/uL Mean Platelet Volume 9.5 7.5-10.5 fL Immature Granulocyte % (Auto) 0.4 0-1 % Neutrophils (%) (Auto) 80.2 H 40.0-77.0 % Lymphocytes (%) (Auto) 12.9 L 21.0-51.0 % Monocytes (%) (Auto) 6.3 3.0-13.0 % Eosinophils (%) (Auto) 0.1 0.0-8.0 % Basophils (%) (Auto) 0.1 0.0-5.0 % Neutrophils # (Auto) 8.7 H 1.8-7.7 K/uL Lymphocytes # (Auto) 1.4 1.0-4.8 K/uL Monocytes # (Auto) 0.7 0.1-1.0 K/uL Eosinophils # (Auto) 0.01 0.00-0.70 K/uL Basophils # (Auto) 0.01 0.00-0.20 K/uL Absolute Immature Granulocyte (auto 0.04 0-1 K/uL Nucleated Red Blood Cells 0.0 0.0-0.19 % Prothrombin Time 10.7 9.6-11.6 SEC Prothromb Time International Ratio 1.01 0.85-1.15 Activated Partial Thromboplast Time 25.6 L 26.3-35.5 SEC Sodium Level 136 136-145 mmol/L Potassium Level 4.5 3.5-5.1 mmol/L Chloride Level 104 101-111 mmol/L Carbon Dioxide Level 21 21-32 mmol/L Blood Urea Nitrogen 10 7-18 mg/dL Creatinine 0.9 0.5-1.3 mg/dL Glomerular Filtration Rate Calc 96 >90 mL/min Random Glucose 114 H 70-105 mg/dL Lactic Acid Level 1.6 0.8-2.5 mmol/L Total Calcium 7.8 L 8.5-10.1 mg/dL Phosphorus Level 3.8 2.5-4.9 mg/dL Magnesium Level 2.00 1.80-2.40 mg/dL Procalcitonin < 0.05 L 0.05-0.5 ng/mL Urine Color LIGHT-YELLOW YELLOW Urine Appearance CLEAR CLEAR Urine pH 5.5 5.0-8.0 Urine Specific [place] OVER 1.001-1.031 Urine Protein NEGATIVE NEGATIVE mg/dL Urine Glucose (UA) NEGATIVE NEGATIVE mg/dL Urine Ketones NEGATIVE NEGATIVE mg/dL Urine Occult Blood +- (TRACE) H NEGATIVE Urine Nitrate NEGATIVE NEGATIVE Urine Bilirubin NEGATIVE NEGATIVE mg/dL Urine Urobilinogen 0.2 0.2-1.0 mg/dL Urine Leukocyte Esterase NEGATIVE NEGATIVE [place]/uL Urine RBC 2-5 H 0-1 /HPF Urine WBC 0-1 0-1 /HPF Urine Bacteria None None Seen /HPF Urine Hyaline Casts 6-10 H 0-1 /LPF /LPF Urine Opiates Screen NEGATIVE NEGATIVE Urine Barbiturates Screen NEGATIVE NEGATIVE Urine Phencyclidine Screen NEGATIVE NEGATIVE Urine Amphetamines Screen NEGATIVE NEGATIVE Urine Benzodiazepines Screen NEGATIVE NEGATIVE Urine Cocaine Screen NEGATIVE NEGATIVE Urine Marijuana (THC) Screen NEGATIVE NEGATIVE Stool Occult Blood POSITIVE H NEGATIVE Test 01/26/25 20:41 Range/Units Total Bilirubin 0.6 0.2-1.0 mg/dL Direct Bilirubin 0.1 0.0-0.3 mg/dL Aspartate Amino Transf (AST/SGOT) 24 10-37 U/L Alanine Aminotransferase (ALT/SGPT) 29 12-78 U/L Alkaline Phosphatase 76 50-136 U/L Total Creatine Kinase 120 21-232 U/L Troponin I High Sensitivity 22 4-75 ng/L Total Protein 7.6 6.0-8.3 g/dL Albumin 3.4 L 3.5-5.0 g/dL Serum Alcohol 5 0-10 mg/dL Current Medications Medications (Trade) Dose Ordered Sig/Ashley Route PRN Reason Start Time Stop Time Status Last Admin Dose Admin Acetaminophen (TYLenol 325MG TAB) 650 mg Q6H PRN PO TEMPERATURE GREATER THAN 101.5 01/27/25 02:30 02/26/25 02:29 Hydralazine HCl (APRESOLine 20MG INJ) 10 mg Q6H PRN IV For:SBP above 160;DBP above 90 01/27/25 02:30 02/26/25 02:29 Metronidazole/ Sodium Chloride 100 ml @ 100 mls/hr Q8H6 IVPB 01/27/25 06:00 01/27/25 09:58 DC 01/27/25 05:48 100 MLS/HR Morphine Sulfate (morPHINE 4MG SYG) 2 mg Q4H PRN IVP SEVERE PAIN (7-10) 01/27/25 02:30 02/03/25 02:29 Octreotide Acetate 1250 mcg/ Sodium Chloride 250 ml @ 0 mls/hr PROTOCOL IV 01/27/25 02:30 02/26/25 02:29 01/27/25 03:21 5 MLS/HR Ondansetron HCl (zoFRAN 4MG INJ) 4 mg Q6H PRN IV NAUSEA/VOMITING 01/27/25 02:30 02/26/25 02:29 Pantoprazole Sodium 80 mg/ Sodium Chloride 100 ml @ 10 mls/hr Q10H IV 01/27/25 02:30 02/26/25 02:29 01/27/25 03:21 10 MLS/HR Piperacillin Sod/ Tazobactam Sod (Zosyn 3.375gm+NS 50ml) 3.375 gm Q8H IV 01/27/25 03:00 02/06/25 02:59 01/27/25 03:41 3.375 GM Sodium Chloride 1,000 ml @ 100 mls/hr Q10H IV 01/27/25 02:30 02/26/25 02:29 Diagnostics / Radiology: [COPY/PASTE HERE IF NO REPORTS PLEASE DELETE SECTION] Assessment: Hematochezia likely related to Acute diverticulitis Alcohol abuse Anemia Plan: EGD in am to r/o any upper GI pathology Treat diverticulitis with plan for outpatient colonoscopy in 6-8 weeks DARIA ACOSTA CONCRETE ANALYST Jan 27, 2025 11:18
[2025-01-27] MEDS ORDERED: COMPOUND IV REFRIGERATED 1 EACH IVSOLN MISC PRN (11:30)
[2025-01-27] MEDS ORDERED: PHARMACY COMMUNICATION MISC PRN (12:30)
[2025-01-27] MEDS: THIAMINE HCL 100 MG, FOLic ACID 5 MG/ML VIAL 1 MG, M.V.I. IV [ADULT] 10 ML in 0.9%NACL ... IV SCH (15:48)
--- NOTE | 2025-01-27 19:39 | CONS ---
GENERAL SURGERY CONSULTATION NOTE DATE OF CONSULTATION: Jan 27, 2025 TIME OF CONSULTATION: 19:36 CONSULTING SERVICE: Lili Pearson MD REQUESTING PHYSICAIN: [ ] REASON FOR CONSULTATION: [ ] GI bleed Lower GI bleed HISTORY OF PRESENT ILLNESS: [ ] 64-year-old male who presented with bleeding per rectum Said he started two days prior denied any abdominal pain Denied constipation Never had this kind of problem before He has never had a colonoscopy before PAST MEDICAL HISTORY: [ ] Non PAST SURGICAL HISTORY: [ ] Non FAMILY HISTORY: [ ] Positive for diabetes No family history of colon cancer SOCIAL HISTORY: [ ] No smoking No alcohol Current Medications Medications (Trade) Dose Ordered Sig/Ashley Route Start Time Stop Time Status Last Admin Dose Admin Metronidazole/ Sodium Chloride 100 ml @ 100 mls/hr Q8H6 IVPB 01/27/25 06:00 01/27/25 09:58 DC 01/27/25 05:48 100 MLS/HR Octreotide Acetate 1250 mcg/ Sodium Chloride 250 ml @ 0 mls/hr PROTOCOL IV 01/27/25 02:30 02/26/25 02:29 01/27/25 03:21 5 MLS/HR Pantoprazole Sodium 80 mg/ Sodium Chloride 100 ml @ 10 mls/hr Q10H IV 01/27/25 02:30 02/26/25 02:29 01/27/25 13:28 10 MLS/HR Piperacillin Sod/ Tazobactam Sod (Zosyn 3.375gm+NS 50ml) 3.375 gm Q8H IV 01/27/25 03:00 02/06/25 02:59 01/27/25 11:29 3.375 GM Sodium Chloride 1,000 ml @ 100 mls/hr Q10H IV 01/27/25 02:30 02/26/25 02:29 Thiamine HCl 100 mg/Folic Acid 1 mg/Multivitamins/ Minerals 10 ml/ Sodium Chloride 1,011.2 ml @ 100 mls/ hr Q24H IV 01/27/25 12:30 01/29/25 22:37 01/27/25 15:48 100 MLS/HR Allergies: Coded Allergies: No Known Allergies (Unverified Allergy, Unknown, 01/26/25) REVIEW OF SYSTEMS: TIER LIFT OPERATOR: [Denies headaches or blurring of vision.] RESP: [No cough, chest pain or SOB.] CVS: [No palpitaions.] GI: [No abdominal pain with nausea and vomiting, no diarrhea or constipation.] NANCY: [No dysuria or hematuria.] Musculoskeletal: [No swelling or joint pain.] BACK: [No pain or swelling.] All other systems are reviewed and essentially negative pertinent positives in HPI. PHYSICAL EXAMINATION: GENERAL: [Patient is lying comfortably in bed, not in any obvious distress.] HEAD: [Normal with no signs of head trauma.] EYES: [Not pale not jaundiced afebrile to touch.] ENT: [ Normal.] NECK: [Supple,no tenderness,no lymphadenopathy,no masses,no thyromegaly ,no bruits, no JVD.] LUNGS: [Clear breath sounds bilaterally. No wheezes, rales, or rhonchi.] HEART: [Regular rate and rhythm. Normal S1 and S2, without murmurs, rub or gallop.] VASC: [No edema. Peripheral pulses normal and equal in all extremities.] ABD: [Bowel sounds present,soft, nontender, no masses, no organomegaly.] : [Normal, no suprapubic tenderness.] LYMPH: [No lymphadenopathy noted.] EXT: [ Warm soft, non tender.] SKIN: [ No rashes or lesions.] NEURO: [ Awake Alert and oriented x3.] Vital Signs (last 8hr) Date Time Temp Pulse Resp B/P (MAP) Pulse Ox O2 Delivery O2 Flow Rate FiO2 01/27/25 16:00 98.2 67 18 115/75 99 Room Air 21 01/27/25 12:00 98.6 62 18 116/69 99 Room Air 21 LABORATORY: [ ] Hematology Labs: Test 01/27/25 14:43 01/27/25 03:36 Range/Units Hemoglobin 9.6 L 14.0-18.0 g/dL Hematocrit 28.0 L 42-54 % White Blood Count 10.8 # 4.8-10.8 K/uL Red Blood Count 3.82 L 4.50-6.20 MIL/uL Mean Corpuscular Volume 92.7 79-99 fL Mean Corpuscular Hemoglobin 31.4 27.0-33.0 pg Mean Corpuscular Hemoglobin Concent 33.9 32.0-36.0 g/dL Red Cell Distribution Width 12.7 11.0-15.5 % Platelet Count 255 130-400 K/uL Mean Platelet Volume 9.5 7.5-10.5 fL Immature Granulocyte % (Auto) 0.4 0-1 % Neutrophils (%) (Auto) 80.2 H 40.0-77.0 % Lymphocytes (%) (Auto) 12.9 L 21.0-51.0 % Monocytes (%) (Auto) 6.3 3.0-13.0 % Eosinophils (%) (Auto) 0.1 0.0-8.0 % Basophils (%) (Auto) 0.1 0.0-5.0 % Neutrophils # (Auto) 8.7 H 1.8-7.7 K/uL Lymphocytes # (Auto) 1.4 1.0-4.8 K/uL Monocytes # (Auto) 0.7 0.1-1.0 K/uL Eosinophils # (Auto) 0.01 0.00-0.70 K/uL Basophils # (Auto) 0.01 0.00-0.20 K/uL Absolute Immature Granulocyte (auto 0.04 0-1 K/uL Nucleated Red Blood Cells 0.0 0.0-0.19 % Chemistry Labs: Test 01/27/25 03:36 01/26/25 20:41 Range/Units Sodium Level 136 136-145 mmol/L Potassium Level 4.5 3.5-5.1 mmol/L Chloride Level 104 101-111 mmol/L Carbon Dioxide Level 21 21-32 mmol/L Blood Urea Nitrogen 10 7-18 mg/dL Creatinine 0.9 0.5-1.3 mg/dL Glomerular Filtration Rate Calc 96 >90 mL/min Random Glucose 114 H 70-105 mg/dL Lactic Acid Level 1.6 0.8-2.5 mmol/L Total Calcium 7.8 L 8.5-10.1 mg/dL Phosphorus Level 3.8 2.5-4.9 mg/dL Magnesium Level 2.00 1.80-2.40 mg/dL Procalcitonin < 0.05 L 0.05-0.5 ng/mL Total Bilirubin 0.6 0.2-1.0 mg/dL Direct Bilirubin 0.1 0.0-0.3 mg/dL Aspartate Amino Transf (AST/SGOT) 24 10-37 U/L Alanine Aminotransferase (ALT/SGPT) 29 12-78 U/L Alkaline Phosphatase 76 50-136 U/L Total Creatine Kinase 120 21-232 U/L Troponin I High Sensitivity 22 4-75 ng/L Total Protein 7.6 6.0-8.3 g/dL Albumin 3.4 L 3.5-5.0 g/dL Coagulation Labs: Test 01/27/25 03:36 Range/Units Prothrombin Time 10.7 9.6-11.6 SEC Prothromb Time International Ratio 1.01 0.85-1.15 Activated Partial Thromboplast Time 25.6 L 26.3-35.5 SEC DIAGNOSTICS / RADIOLOGY: [Copy/Paste Echos/Imaging Report here] ASSESSMENT: [] Lower GI bleed No evidence PLAN: [] NPO/IVF/IV ANTIOBIOTICS Labs May need transfusion if hemoglobin is below seven GI for panendoscopy EGD and colonoscopy LILI PEARSON MD Jan 27, 2025 19:39
[2025-01-28] VITALS (22 sets, daily range): BP systolic 86–147; BP diastolic 57–87; PULSE 53–73; RESP 15–20; TEMP 97.1–98.2; O2SAT 99
[2025-01-28 03:59] LABS: NUCLEATED RED BLOOD CELLS 0.0 % (0.0-0.19); PLATELET COUNT (AUTO) 208.0 K/uL (130-400); RED BLOOD CELL COUNT(AUTO) 2.83 MIL/uL (4.50-6.20); RED CELL DISTRIBUTION WIDTH 12.8 % (11.0-15.5); WHITE BLOOD COUNT (AUTO) 7.4 K/uL (4.8-10.8)
[2025-01-28 04:10] LABS: CREATININE 1.1 mg/dL (0.5-1.3); GLOMERULAR FILTR. RATE CALC 75.0 mL/min (>90); GLUCOSE,RANDOM 115.0 mg/dL (70-105); SODIUM SERUM 139.0 mmol/L (136-145); UREA NITROGEN, BLOOD 8.0 mg/dL (7-18)
[2025-01-28] MEDS ORDERED: LIDOCAINE PF 100MG/5ML (2%) SYRINGE 5ML ONE (07:06)
--- NOTE | 2025-01-28 07:34 | NUR ---
PATIENT REPORT RECEIVED REPORT FROM [facility] PACU NURSE. PATIENT UNDERWENT UPPER EGD WITH . NORMAL EXAM. GASTRITIS-WAS BIOPSIED. PATIENT TO CONTINUE WITH A CLEAR LIQUID DIET. RECOMMEND COLONOSCOPY. VITALS; BLOOD PRESSURE 115/67, HR-61, SPO2-98% ON RA.
--- NOTE | 2025-01-28 07:53 | NUR ---
UNIT ARRIVAL PATIENT ARRIVED ON UNIT PATIENT ALERT AND ORIENTATED, STABLE, NO DISTRESS NOTED POST OP VITALS INITIATED BED LOCKED, LOWEST POSTION PRESENT IN ROOM
--- NOTE | 2025-01-28 12:03 | PN ---
[facility] PROGRESS NOTE Date of Service: Jan 28, 2025 Time of Service: 11:38 SUBJECTIVE: [Patient evaluated in the room, patient has been having abdominal issue in the past, but daughter stated that he would not really report. Patient started having bloody stool, his diet declined, but he continued consuming ETOH. Daughter reported that he drinks beer daily. His initial H/H was 1.5/40.2, now patient's H/H is slowly downtrending. He s/p EGD for which they noted gastritis, he was bx. He continued to be on IV antbx for diverticulitis, recommendation on diet is clear for now, so far tolerating well. ] REVIEW OF SYSTEMS CONSTITUTIONAL: Denies fevers, chills, or night sweats. No unintentional weight loss reported. NEUROLOGICAL: Denies headache, amaurosis fugax, motor weakness, sensory deficit, vertigo/spinning sensation, gait abnormalities, or tremors. ENT: No hearing loss, otalgia, otorrhea, rhinitis, rhinorrhea, hoarseness, or sore throat. CARDIOVASCULAR: Denies any exertional angina, dyspnea on exertion, orthopnea, paroxysmal nocturnal dyspnea, palpitations, life-threatening arrhythmias, claudication. PULMONARY: Denies any shortness of breath, cough, phlegm/sputum, hemoptysis, pleuritic chest pain. SLEEP: Denies morning headaches, daytime somnolence or napping. Denies difficulty falling asleep, staying asleep, waking from sleep. Denies knowledge of snoring. GASTROINTESTINAL: Denies any type of dysphagia to either liquids or solids. Denies nausea, vomiting, pyrosis, early satiety, abdominal pain, diarrhea, constipation, or changes in stool consistency or caliber. Denies coffee-ground emesis, hematemesis, hematochezia, or melanotic stools. GENITOURINARY: Denies frequency, urgency, nocturia, hematuria or incontinence (Storage/Irritative symptoms.) Low urinary stream, straining to void, urinary intermittency or hesitancy, splitting of the voiding stream, terminal dribbling. ENDOCRINOLOGIC: Denies polyuria, polydipsia, polyphagia or heat/cold intolerances. HEMATOLOGIC: Denies thrombophilia/previous clots, or coagulopathy/bleeding disorders. ONCOLOGIC: Denies personal history of malignancy. DERMATOLOGIC: Denies rashes or pruritus. PSYCHIATRIC: Denies any suicidal or homicidal ideation. Denies hallucinations. PHYSICAL EXAM GENERAL APPEARANCE: The patient is awake, alert, and oriented, in no acute cardiopulmonary distress. NEUROLOGICAL: Cranial nerves II-XII grossly intact. Motor is 5/5 in bilateral upper and lower extremities proximal to distal. No sensory deficits. HEENT: Face is symmetric. Pupils are equal and reactive. Extraocular movements are intact. NECK: Supple. No JVD. No thyromegaly. No submental, submandibular, pre- /postauricular, occipital or supraclavicular lymphadenopathy. CHEST: Normal chest expansion. No Telemetry. LUNGS: Absence of any rales, rhonchi or any wheezing. CARDIOVASCULAR: Regular. S1 and S2 normal. No appreciable rubs, murmurs or gallops. ABDOMEN: Soft, nontender, and nondistended. There is no rebound, voluntary guarding, or rigidity. : Deferred. No Payne. EXTREMITIES: Non-edematous and not cyanotic. No clubbing. Good capillary refill. SKIN: No skin breakdown. Vital Signs (last 8hr) Date Time Temp Pulse Resp B/P (MAP) Pulse Ox O2 Delivery O2 Flow Rate FiO2 01/28/25 10:00 59 17 107/62 98 Room Air 01/28/25 09:30 97.3 56 17 123/72 97 Room Air 01/28/25 09:00 97.3 53 17 111/67 98 Room Air 01/28/25 08:30 97.3 53 17 105/65 97 Room Air 01/28/25 08:15 97.3 57 16 113/66 17 Room Air 01/28/25 08:00 97.3 56 16 109/65 97 Room Air 01/28/25 07:55 97.2 65 15 115/63 97 Room Air 21 01/28/25 07:50 97.2 63 15 116/64 96 Room Air 21 01/28/25 07:45 97.2 67 15 111/65 96 Room Air 21 01/28/25 07:40 97.2 62 15 110/63 96 Room Air 21 01/28/25 07:35 97.2 65 15 112/63 96 Room Air 21 01/28/25 07:30 97.2 63 15 112/65 96 Room Air 21 12/17/25 07:25 97.2 65 15 110/67 97 Nasal Cannula 1.0 28 01/28/25 07:20 97.2 65 15 104/57 98 Nasal Cannula 3.0 01/28/25 06:55 Mask 01/28/25 06:55 Mask 10.0 01/28/25 04:00 97.9 57 18 106/66 94 Room Air LABS: Laboratory: Test 01/28/25 09:01 01/28/25 03:36 01/27/25 03:36 01/27/25 00:48 Range/Units Hemoglobin 9.3 L 14.0-18.0 g/dL Hematocrit 27.8 L 42-54 % White Blood Count 7.4 # 4.8-10.8 K/uL Red Blood Count 2.83 #L 4.50-6.20 MIL/uL Mean Corpuscular Volume 93.3 79-99 fL Mean Corpuscular Hemoglobin 32.2 27.0-33.0 pg Mean Corpuscular Hemoglobin Concent 34.5 32.0-36.0 g/dL Red Cell Distribution Width 12.8 11.0-15.5 % Platelet Count 208 130-400 K/uL Mean Platelet Volume 9.5 7.5-10.5 fL Nucleated Red Blood Cells 0.0 0.0-0.19 % Sodium Level 139 136-145 mmol/L Potassium Level 4.6 3.5-5.1 mmol/L Chloride Level 106 101-111 mmol/L Carbon Dioxide Level 30 21-32 mmol/L Blood Urea Nitrogen 8 7-18 mg/dL Creatinine 1.1 0.5-1.3 mg/dL Glomerular Filtration Rate Calc 75 >90 mL/min Random Glucose 115 H 70-105 mg/dL Total Calcium 7.9 L 8.5-10.1 mg/dL Magnesium Level 2.10 1.80-2.40 mg/dL Immature Granulocyte % (Auto) 0.4 0-1 % Neutrophils (%) (Auto) 80.2 H 40.0-77.0 % Lymphocytes (%) (Auto) 12.9 L 21.0-51.0 % Monocytes (%) (Auto) 6.3 3.0-13.0 % Eosinophils (%) (Auto) 0.1 0.0-8.0 % Basophils (%) (Auto) 0.1 0.0-5.0 % Neutrophils # (Auto) 8.7 H 1.8-7.7 K/uL Lymphocytes # (Auto) 1.4 1.0-4.8 K/uL Monocytes # (Auto) 0.7 0.1-1.0 K/uL Eosinophils # (Auto) 0.01 0.00-0.70 K/uL Basophils # (Auto) 0.01 0.00-0.20 K/uL Absolute Immature Granulocyte (auto 0.04 0-1 K/uL Prothrombin Time 10.7 9.6-11.6 SEC Prothromb Time International Ratio 1.01 0.85-1.15 Activated Partial Thromboplast Time 25.6 L 26.3-35.5 SEC Lactic Acid Level 1.6 0.8-2.5 mmol/L Phosphorus Level 3.8 2.5-4.9 mg/dL Procalcitonin < 0.05 L 0.05-0.5 ng/mL Urine Color LIGHT-YELLOW YELLOW Urine Appearance CLEAR CLEAR Urine pH 5.5 5.0-8.0 Urine Specific [place] OVER 1.001-1.031 Urine Protein NEGATIVE NEGATIVE mg/dL Urine Glucose (UA) NEGATIVE NEGATIVE mg/dL Urine Ketones NEGATIVE NEGATIVE mg/dL Urine Occult Blood +- (TRACE) H NEGATIVE Urine Nitrate NEGATIVE NEGATIVE Urine Bilirubin NEGATIVE NEGATIVE mg/dL Urine Urobilinogen 0.2 0.2-1.0 mg/dL Urine Leukocyte Esterase NEGATIVE NEGATIVE [place]/uL Urine RBC 2-5 H 0-1 /HPF Urine WBC 0-1 0-1 /HPF Urine Bacteria None None Seen /HPF Urine Hyaline Casts 6-10 H 0-1 /LPF /LPF Urine Opiates Screen NEGATIVE NEGATIVE Urine Barbiturates Screen NEGATIVE NEGATIVE Urine Phencyclidine Screen NEGATIVE NEGATIVE Urine Amphetamines Screen NEGATIVE NEGATIVE Urine Benzodiazepines Screen NEGATIVE NEGATIVE Urine Cocaine Screen NEGATIVE NEGATIVE Urine Marijuana (THC) Screen NEGATIVE NEGATIVE Test 01/26/25 22:15 01/26/25 20:41 Range/Units Stool Occult Blood POSITIVE H NEGATIVE Total Bilirubin 0.6 0.2-1.0 mg/dL Direct Bilirubin 0.1 0.0-0.3 mg/dL Aspartate Amino Transf (AST/SGOT) 24 10-37 U/L Alanine Aminotransferase (ALT/SGPT) 29 12-78 U/L Alkaline Phosphatase 76 50-136 U/L Total Creatine Kinase 120 21-232 U/L Troponin I High Sensitivity 22 4-75 ng/L Total Protein 7.6 6.0-8.3 g/dL Albumin 3.4 L 3.5-5.0 g/dL Serum Alcohol 5 0-10 mg/dL Current Medications Medications (Trade) Dose Ordered Sig/Ashley Route PRN Reason Start Time Stop Time Status Last Admin Dose Admin Acetaminophen (TYLenol 325MG TAB) 650 mg Q6H PRN PO TEMPERATURE GREATER THAN 101.5 01/27/25 02:30 02/26/25 02:29 Chlordiazepoxide HCl (LIBrium 25 MG CAP) 25 mg Q2H PRN PO ALCOHOL WITHDRAWAL PROTOCOL 01/27/25 12:30 02/03/25 12:29 Diazepam (VALium 5 MG/ML 2 ML SYG) 10 mg Q4H PRN IVP ALCOHOL WITHDRAWAL PROTOCOL 01/27/25 12:30 02/03/25 12:29 Hydralazine HCl (APRESOLine 20MG INJ) 10 mg Q6H PRN IV For:SBP above 160;DBP above 90 01/27/25 02:30 02/26/25 02:29 Metronidazole/ Sodium Chloride 100 ml @ 100 mls/hr Q8H6 IVPB 01/27/25 06:00 01/27/25 09:58 DC 01/27/25 05:48 100 MLS/HR Morphine Sulfate (morPHINE 4MG SYG) 2 mg Q4H PRN IVP SEVERE PAIN (7-10) 01/27/25 02:30 02/03/25 02:29 Octreotide Acetate 1250 mcg/ Sodium Chloride 250 ml @ 0 mls/hr PROTOCOL IV 01/27/25 02:30 02/26/25 02:29 01/27/25 03:21 5 MLS/HR Ondansetron HCl (zoFRAN 4MG INJ) 4 mg Q6H PRN IV NAUSEA/VOMITING 01/27/25 02:30 02/26/25 02:29 Pantoprazole Sodium 80 mg/ Sodium Chloride 100 ml @ 10 mls/hr Q10H IV 01/27/25 02:30 02/26/25 02:29 01/28/25 01:59 10 MLS/HR Pharmacy Profile Note (Pharmacy Communication) 1 each PROTOCOL PRN MISC ETOH Withdrawal Score changes 01/27/25 12:30 02/03/25 12:29 Piperacillin Sod/ Tazobactam Sod (Zosyn 3.375gm+NS 50ml) 3.375 gm Q8H IV 01/27/25 03:00 02/06/25 02:59 01/28/25 11:28 3.375 GM Sodium Chloride 1,000 ml @ 100 mls/hr Q10H IV 01/27/25 02:30 02/26/25 02:29 Thiamine HCl 100 mg/Folic Acid 1 mg/Multivitamins/ Minerals 10 ml/ Sodium Chloride 1,011.2 ml @ 100 mls/ hr Q24H IV 01/27/25 12:30 01/29/25 22:37 01/27/25 15:48 100 MLS/HR DIAGNOSTICS / RADIOLOGY: [ ] ASSESSMENT: [1. Acute Diverticulitis vs. Colonic Neoplasm (POA): CT abdomen/pelvis shows segmental wall thickening at the hepatic flexure with scattered diverticula. Acute diverticulitis is likely, but underlying colonic neoplasm cannot be excluded. 2. Incidental 1.4 cm Hypodense Liver Lesion (POA): Detected on CT; etiology undetermined. 3. Gallbladder Calculus, No Acute Cholecystitis (POA): Cholelithiasis identified on CT without evidence of acute inflammation. 4. Acute GI Bleed, Downtrending (POA): History of rectal bleeding with improving trend. EGD revealed gastritis. 5. Gastritis (POA): Confirmed on EGD. 6. Alcohol Abuse (POA): Ongoing risk factor; patient on [facility] protocol. PLAN 1. Acute Diverticulitis vs. Colonic Neoplasm: - Admit to medical floor for continued monitoring. - NPO/clear liquid diet; advance as tolerated per GI/surgery recommendations. - Plan for outpatient colonoscopy in 6 weeks after resolution of acute process to rule out malignancy. 2. Incidental Liver Lesion: - No acute intervention required at this time. - Consider outpatient follow-up imaging (e.g., liver protocol MRI or repeat CT) based on risk factors and clinical context. 3. Gallbladder Calculus: - No signs of acute cholecystitis; continue observation. - Monitor for development of biliary symptoms. 4. Acute GI Bleed/Gastritis: - Continue to monitor hemoglobin and hematocrit daily. - Transfuse PRBCs if hemoglobin <7 g/dL or symptomatic anemia. - Continue GI prophylaxis (e.g., PPI). - Maintain clear liquid diet until further recommendations from GI/surgery. 5. Alcohol Abuse: - Continue CIWA protocol and monitor for withdrawal symptoms. - Supportive care and consider social work/addiction counseling as appropriate. 6. General Measures: - Monitor and replete electrolytes as needed. - DVT prophylaxis per protocol. - Repeat labs tomorrow (CBC, BMP, LFTs as indicated). Case discussed with Dr. Keenan; plan as above. Let me know if you need this in a different format or if you want to add any specific orders or details. ATTESTATION BY PHYSICIAN I have seen and examined the patient. I reviewed the documentation, medical decision making, and treatment plan as noted by the mid-level provider above. I agree with the findings and plan of care. DOUGIE KEENAN MD, JANICE B [facility] Jan 28, 2025 12:03
[2025-01-28 12:13] LABS: % IRON SATURATION 48.0 % (30-44); IRON, SERUM 134.0 mcg/dL (65-175)
[2025-01-28] MEDS: PEG 3350/NA SULF,BICARB,CL/KCL 4000 ML SOLN PO ONE (16:55)
[2025-01-28 23:53] LABS: NUCLEATED RED BLOOD CELLS 0.0 % (0.0-0.19); PLATELET COUNT (AUTO) 277.0 K/uL (130-400); RED BLOOD CELL COUNT(AUTO) 3.12 MIL/uL (4.50-6.20); RED CELL DISTRIBUTION WIDTH 12.7 % (11.0-15.5); WHITE BLOOD COUNT (AUTO) 9.3 K/uL (4.8-10.8)
--- NOTE | 2025-01-28 23:58 | NUR ---
RAPID RESPONSE TELE CALLED STATING HR UP IN THE 130'S, WENT TO CHECK ON PT. HE WAS ON TOILET, HE IS BEING PREPPED FOR COLONOSCOPY IN AM. ASSISTED PT BACK TO BED, STATED HE IS FEELING DIZZY AND HIS VISION IS GOING BLACK, ASSISTED HIM TO ROLL OUT/BED CHAIR, HE THAN FAINTED. STERNAL RUB DONE 4 TIMES PT WOULD WAKE UP ND THAN PASS OUT AGAIN. HE IS BREATHING AND HAS A PULSE. [facility]APID RESPONSE CALLED. HE HAS HAD 2 BLOODY STOOLS. PER WHEN HE SEES BLOOD HE GETS DIZZY AND PASSES OUT. HE WAS ASSISTED BACK TO BED. SEE RAPID RESPONSE SHEET FOR VS AND MD ORDERS AND RECOMMENDATIONS.
[2025-01-29] VITALS (26 sets, daily range): BP systolic 93–146; BP diastolic 57–88; PULSE 58–92; RESP 15–18; TEMP 97.3–98.5; O2SAT 98
[2025-01-29 00:04] LABS: CREATININE 1.2 mg/dL (0.5-1.3); GLOMERULAR FILTR. RATE CALC 68.0 mL/min (>90); GLUCOSE,RANDOM 136.0 mg/dL (70-105); SODIUM SERUM 143.0 mmol/L (136-145); UREA NITROGEN, BLOOD 7.0 mg/dL (7-18)
[2025-01-29 03:54] LABS: NUCLEATED RED BLOOD CELLS 0.0 % (0.0-0.19); PLATELET COUNT (AUTO) 231.0 K/uL (130-400); RED BLOOD CELL COUNT(AUTO) 2.57 MIL/uL (4.50-6.20); RED CELL DISTRIBUTION WIDTH 12.7 % (11.0-15.5); WHITE BLOOD COUNT (AUTO) 10.1 K/uL (4.8-10.8)
[2025-01-29 04:06] LABS: CREATININE 1.1 mg/dL (0.5-1.3); GLOMERULAR FILTR. RATE CALC 75.0 mL/min (>90); GLUCOSE,RANDOM 113.0 mg/dL (70-105); SODIUM SERUM 141.0 mmol/L (136-145); UREA NITROGEN, BLOOD 7.0 mg/dL (7-18)
--- NOTE | 2025-01-29 13:15 | NUR ---
PATIENT OFF UNIT PATIENT OFF UNIT FOR COLONOSCOPY.
--- NOTE | 2025-01-29 13:43 | PN ---
[facility] PROGRESS NOTE Date of Service: Jan 29, 2025 Time of Service: 13:39 SUBJECTIVE: [Patient evaluated in room today. He is status post EGD performed yesterday. Reports no new complaints at this time. Patient describes a fainting episode last night, which he attributes to fear after observing blood in the bathroom. REVIEW OF SYSTEMS CONSTITUTIONAL: Denies fevers, chills, or night sweats. No unintentional weight loss reported. NEUROLOGICAL: Denies headache, amaurosis fugax, motor weakness, sensory deficit, vertigo/spinning sensation, gait abnormalities, or tremors. ENT: No hearing loss, otalgia, otorrhea, rhinitis, rhinorrhea, hoarseness, or sore throat. CARDIOVASCULAR: Denies any exertional angina, dyspnea on exertion, orthopnea, paroxysmal nocturnal dyspnea, palpitations, life-threatening arrhythmias, claudication. PULMONARY: Denies any shortness of breath, cough, phlegm/sputum, hemoptysis, pleuritic chest pain. SLEEP: Denies morning headaches, daytime somnolence or napping. Denies difficulty falling asleep, staying asleep, waking from sleep. Denies knowledge of snoring. GASTROINTESTINAL: Denies any type of dysphagia to either liquids or solids. Denies nausea, vomiting, pyrosis, early satiety, abdominal pain, diarrhea, constipation, or changes in stool consistency or caliber. Denies coffee-ground emesis, hematemesis, hematochezia, or melanotic stools. GENITOURINARY: Denies frequency, urgency, nocturia, hematuria or incontinence (Storage/Irritative symptoms.) Low urinary stream, straining to void, urinary intermittency or hesitancy, splitting of the voiding stream, terminal dribbling. ENDOCRINOLOGIC: Denies polyuria, polydipsia, polyphagia or heat/cold intolerances. HEMATOLOGIC: Denies thrombophilia/previous clots, or coagulopathy/bleeding disorders. ONCOLOGIC: Denies personal history of malignancy. DERMATOLOGIC: Denies rashes or pruritus. PSYCHIATRIC: Denies any suicidal or homicidal ideation. Denies hallucinations. PHYSICAL EXAM GENERAL APPEARANCE: The patient is awake, alert, and oriented, in no acute cardiopulmonary distress. NEUROLOGICAL: Cranial nerves II-XII grossly intact. Motor is 5/5 in bilateral upper and lower extremities proximal to distal. No sensory deficits. HEENT: Face is symmetric. Pupils are equal and reactive. Extraocular movements are intact. NECK: Supple. No JVD. No thyromegaly. No submental, submandibular, pre- /postauricular, occipital or supraclavicular lymphadenopathy. CHEST: Normal chest expansion. No Telemetry. LUNGS: Absence of any rales, rhonchi or any wheezing. CARDIOVASCULAR: Regular. S1 and S2 normal. No appreciable rubs, murmurs or gallops. ABDOMEN: Soft, nontender, and nondistended. There is no rebound, voluntary guarding, or rigidity. : Deferred. No Payne. EXTREMITIES: Non-edematous and not cyanotic. No clubbing. Good capillary refill. SKIN: No skin breakdown. Vital Signs (last 8hr) Date Time Temp Pulse Resp B/P (MAP) Pulse Ox O2 Delivery O2 Flow Rate FiO2 01/29/25 12:00 98.1 66 16 130/75 97 Room Air 01/29/25 08:00 98.4 64 17 118/70 97 Room Air LABS: Laboratory: Test 01/29/25 03:29 01/28/25 23:36 01/28/25 03:36 Range/Units White Blood Count 10.1 4.8-10.8 K/uL Red Blood Count 2.57 L 4.50-6.20 MIL/uL Hemoglobin 8.2 L 14.0-18.0 g/dL Hematocrit 24.2 L 42-54 % Mean Corpuscular Volume 94.2 79-99 fL Mean Corpuscular Hemoglobin 31.9 27.0-33.0 pg Mean Corpuscular Hemoglobin Concent 33.9 32.0-36.0 g/dL Red Cell Distribution Width 12.7 11.0-15.5 % Platelet Count 231 130-400 K/uL Mean Platelet Volume 9.8 7.5-10.5 fL Nucleated Red Blood Cells 0.0 0.0-0.19 % Sodium Level 141 136-145 mmol/L Potassium Level 3.7 3.5-5.1 mmol/L Chloride Level 105 101-111 mmol/L Carbon Dioxide Level 29 21-32 mmol/L Blood Urea Nitrogen 7 7-18 mg/dL Creatinine 1.1 0.5-1.3 mg/dL Glomerular Filtration Rate Calc 75 >90 mL/min Random Glucose 113 H 70-105 mg/dL Total Calcium 7.9 L 8.5-10.1 mg/dL Magnesium Level 2.00 1.80-2.40 mg/dL Whole Blood Glucose 124 H 70-110 MG/DL Iron Level 134 65-175 mcg/dL Total Iron Binding Capacity 279 250-450 mcg/dL Percent Iron Saturation 48.0 H 30-44 % Vitamin B12 Level 227 193-986 pg/mL Current Medications Medications (Trade) Dose Ordered Sig/Ashley Route PRN Reason Start Time Stop Time Status Last Admin Dose Admin Acetaminophen (TYLenol 325MG TAB) 650 mg Q6H PRN PO TEMPERATURE GREATER THAN 101.5 01/27/25 02:30 02/26/25 02:29 Chlordiazepoxide HCl (LIBrium 25 MG CAP) 25 mg Q2H PRN PO ALCOHOL WITHDRAWAL PROTOCOL 01/27/25 12:30 02/03/25 12:29 Diazepam (VALium 5 MG/ML 2 ML SYG) 10 mg Q4H PRN IVP ALCOHOL WITHDRAWAL PROTOCOL 01/27/25 12:30 02/03/25 12:29 Hydralazine HCl (APRESOLine 20MG INJ) 10 mg Q6H PRN IV For:SBP above 160;DBP above 90 01/27/25 02:30 02/26/25 02:29 Metronidazole/ Sodium Chloride 100 ml @ 100 mls/hr Q8H6 IVPB 01/27/25 06:00 01/27/25 09:58 DC 01/27/25 05:48 100 MLS/HR Morphine Sulfate (morPHINE 4MG SYG) 2 mg Q4H PRN IVP SEVERE PAIN (7-10) 01/27/25 02:30 02/03/25 02:29 Octreotide Acetate 1250 mcg/ Sodium Chloride 250 ml @ 0 mls/hr PROTOCOL IV 01/27/25 02:30 02/26/25 02:29 01/29/25 04:14 5 MLS/HR Ondansetron HCl (zoFRAN 4MG INJ) 4 mg Q6H PRN IV NAUSEA/VOMITING 01/27/25 02:30 02/26/25 02:29 Pantoprazole Sodium 80 mg/ Sodium Chloride 100 ml @ 10 mls/hr Q10H IV 01/27/25 02:30 02/26/25 02:29 01/29/25 04:08 10 MLS/HR Pharmacy Profile Note (Pharmacy Communication) 1 each PROTOCOL PRN MISC ETOH Withdrawal Score changes 01/27/25 12:30 02/03/25 12:29 Piperacillin Sod/ Tazobactam Sod (Zosyn 3.375gm+NS 50ml) 3.375 gm Q8H IV 01/27/25 03:00 02/06/25 02:59 01/29/25 11:40 3.375 GM Sodium Chloride 1,000 ml @ 100 mls/hr Q10H IV 01/27/25 02:30 02/26/25 02:29 01/29/25 04:08 100 MLS/HR Thiamine HCl 100 mg/Folic Acid 1 mg/Multivitamins/ Minerals 10 ml/ Sodium Chloride 1,011.2 ml @ 100 mls/ hr Q24H IV 01/27/25 12:30 01/29/25 22:37 01/28/25 13:06 100 MLS/HR DIAGNOSTICS / RADIOLOGY: [ ] ASSESSMENT: [1. Acute Diverticulitis vs. Colonic Neoplasm (POA): CT abdomen/pelvis shows segmental wall thickening at the hepatic flexure with scattered diverticula. Acute diverticulitis is likely, but underlying colonic neoplasm cannot be excluded. 2. Incidental 1.4 cm Hypodense Liver Lesion (POA): Detected on CT; etiology undetermined. 3. Gallbladder Calculus, No Acute Cholecystitis (POA): Cholelithiasis identified on CT without evidence of acute inflammation. 4. Acute GI Bleed, Downtrending (POA): History of rectal bleeding with improving trend. EGD revealed gastritis. 5. Gastritis (POA): Confirmed on EGD. 6. Alcohol Abuse (POA): Ongoing risk factor; patient on CIWA protocol. 7. Status post assisted fall secondary to fainting episode attributed to fear of Patient seen and examined in room his own blood PLAN 1. Acute Diverticulitis vs. Colonic Neoplasm: - Admit to medical floor for continued monitoring. - NPO/clear liquid diet; advance as tolerated per GI/surgery recommendations. - Plan for colonoscopy today 2. Incidental Liver Lesion: - No acute intervention required at this time. - Consider outpatient follow-up imaging (e.g., liver protocol MRI or repeat CT) based on risk factors and clinical context. 3. Gallbladder Calculus: - No signs of acute cholecystitis; continue observation. - Monitor for development of biliary symptoms. 4. Acute GI Bleed/Gastritis: - Continue to monitor hemoglobin and hematocrit daily. - Transfuse PRBCs if hemoglobin <7 g/dL or symptomatic anemia. - Continue GI prophylaxis (e.g., PPI). - Maintain clear liquid diet until further recommendations from GI/surgery. 5. Alcohol Abuse: - Continue CIWA protocol and monitor for withdrawal symptoms. - Supportive care and consider social work/addiction counseling as appropriate. 6. General Measures: - Monitor and replete electrolytes as needed. - DVT prophylaxis per protocol. - Repeat labs tomorrow (CBC, BMP, LFTs as indicated). - Continue NPO status in preparation for colonoscopy. - Monitor hemodynamics and symptoms. - Proceed with colonoscopy as scheduled. - Provide reassurance and education regarding hematochezia and syncope. - Reassess following colonoscopy for further management. Case discussed with Dr. Keenan; plan as above. ATTESTATION BY PHYSICIAN I have seen and examined the patient. I reviewed the documentation, medical decision making, and treatment plan as noted by the mid-level provider above. I agree with the findings and plan of care. DOUGIE KEENAN MD, [facility]ICE B [facility] Jan 29, 2025 13:43
[2025-01-29] MEDS ORDERED: LIDOCAINE PF 100MG/5ML (2%) SYRINGE 5ML ONE (14:29)
--- NOTE | 2025-01-29 15:30 | NUR ---
PATIENT REPORT RECEIVED REPORT FROM [facility] PACU NURSE. PATIENT UNDERWENT COLONOSCOPY WITH DR. MAJANO. SUSPECTED RESOLVED DIVERTICULAR BLEEDING. CLIP PLACED AT SITE OF SUSPECTED CULPRIT. ONE 3 MM POLYP IN SIGMOID COLON, NON-BLEEDING HEMORRHOIDS. PATIENT CAN HAVE CLEAR LIQUID DIET ADVANCE TOLERATED. FOLLOW UP WITH GI IN ONE WEEK. PER MD ORDER STOP PROTONIX DRIP AND SANDOSTATIN DRIP. START PATIENT ON PROTONIX 40 MG PO DAILY.
--- NOTE | 2025-01-29 15:40 | NUR ---
UNIT ARRIVAL PATIENT ARRIVED TO UNIT VIA STRETCHER. PATIENT AWAKE, ALERT AND ORIENTED. NO SIGNS OF PAIN OR DISTRESS NOTED. POST OP VITALS STARTED. BED LOCKED IN LOWEST POSITION CALL LIGHT WITHIN REACH. FAMILY PRESENT AT BEDSIDE.
[2025-01-29 15:57] LABS: NUCLEATED RED BLOOD CELLS 0.0 % (0.0-0.19); PLATELET COUNT (AUTO) 214.0 K/uL (130-400); RED BLOOD CELL COUNT(AUTO) 2.27 MIL/uL (4.50-6.20); RED CELL DISTRIBUTION WIDTH 13.1 % (11.0-15.5); WHITE BLOOD COUNT (AUTO) 7.6 K/uL (4.8-10.8)
[2025-01-29 16:05] LABS: CREATININE 1.0 mg/dL (0.5-1.3); GLOMERULAR FILTR. RATE CALC 85.0 mL/min (>90); GLUCOSE,RANDOM 92.0 mg/dL (70-105); SODIUM SERUM 142.0 mmol/L (136-145); UREA NITROGEN, BLOOD 8.0 mg/dL (7-18)
[2025-01-29 16:10] LABS: ASPARTATE AMINOTRANSFERASE 19.0 U/L (10-37); TOTAL PROTEIN, SERUM 5.8 g/dL (6.0-8.3)
--- NOTE | 2025-01-29 17:20 | NUR ---
BLOOD TRANSFUSION ONE UNIT OF PRBC'S ORDERED FOR HEMOGLOBIN OF 7.3. TRANSFUSION STARTED AT 120 ML/HR PATIENT TOLERATING WELL. NO SIGNS OF REACTION NOTED PATIENT DENIES ANY PAIN OR DISCOMFORT. RATE INCREASED TO 160 ML/HR.
[2025-01-30] VITALS (7 sets, daily range): BP systolic 114–151; BP diastolic 67–82; PULSE 53–88; RESP 16–18; TEMP 97.9–98.2; O2SAT 98
[2025-01-30 03:54] LABS: NUCLEATED RED BLOOD CELLS 0.0 % (0.0-0.19); PLATELET COUNT (AUTO) 217.0 K/uL (130-400); RED BLOOD CELL COUNT(AUTO) 2.82 MIL/uL (4.50-6.20); RED CELL DISTRIBUTION WIDTH 13.9 % (11.0-15.5); WHITE BLOOD COUNT (AUTO) 7.8 K/uL (4.8-10.8)
[2025-01-30 04:05] LABS: CREATININE 0.9 mg/dL (0.5-1.3); GLOMERULAR FILTR. RATE CALC 96.0 mL/min (>90); GLUCOSE,RANDOM 90.0 mg/dL (70-105); UREA NITROGEN, BLOOD 5.0 mg/dL (7-18)
[2025-01-30 04:35] LABS: SODIUM SERUM 142.0 mmol/L (136-145)
--- NOTE | 2025-01-30 12:12 | DS ---
Discharge Summary Hospital Course Summary: /Discharge Summary / Hospital Course Patient Name: Reji Cole : 1960 Admit Date: 01/26/2025 Discharge Date: 01/30/2025 Attending Providers: BRITT Maradiaga; Stew Duggan MD; Lavell Maynard MD; Isreal Vargas Jr., MD Reason for Admission: 64-year-old male admitted for evaluation and management of acute hematochezia and symptomatic anemia. Hospital Course Initial Presentation: The patient presented with acute onset of bright red blood per rectum (hematochezia), associated with dizziness and a syncopal episode. He reported a history of chronic constipation but denied prior similar bleeding episodes. No prior colonoscopy. Social history notable for daily alcohol use. Initial Workup: - Labs: Initial Hgb/Hct 13.5/40.2, downtrending to 7.3/21.8 during admission. WBC elevated on admission, lactic acid mildly elevated, with subsequent normalization. - Imaging: CT abdomen/pelvis showed segmental wall thickening at the hepatic flexure with scattered diverticula, suggestive of acute diverticulitis. Incidental 1.4 cm hypodense liver lesion and gallbladder calculus without cholecystitis were also noted. - Physical Exam: Hemodynamically stable after initial resuscitation. Abdomen soft, nontender, no peritoneal signs. Management: - NPO/clear liquid diet, IV fluids, empiric IV antibiotics (piperacillin- tazobactam), IV PPI, and octreotide infusion. - Serial monitoring of hemoglobin and hematocrit. - DVT prophylaxis with SCDs. - [facility] protocol for alcohol withdrawal. - 1 unit PRBC transfused for Hgb <7.5 g/dL. - Bleeding scan if it is negative, patient will be discharged home Procedures 1. Esophagogastroduodenoscopy (EGD) 01/28/2025 - Indications: Iron deficiency anemia, hematochezia, positive stool occult blood. - Findings: Mild gastritis (localized congestion and erythema) in the stomach; biopsied. Esophagus and duodenum normal. - Complications: None. - Impression: Gastritis; no evidence of upper GI source for bleeding. - Plan: Await pathology, clear liquid diet, proceed with colonoscopy. 2. Colonoscopy 01/29/2025 - Indication: Hematochezia. - Findings: - Traces of hematin (altered blood) throughout the colon. - Extensive diverticulosis in the entire colon; a suspected culprit diverticulum with signs of recent bleeding was identified and treated with a hemostatic clip ([employer]). - 3 mm sessile polyp in the sigmoid colon, removed with cold biopsy forceps. - Small, non-bleeding internal hemorrhoids. - Terminal ileum normal. - Complications: None. - Impression: Suspected resolved diverticular bleeding; diverticulosis; sigmoid colon polyp (removed); non-bleeding hemorrhoids. - Plan: Monitor H&H, clear liquid diet (advance as tolerated), avoid NSAIDs, follow up on pathology, GI follow-up in 1 week. Hospital Course Summary - The patients GI bleeding was attributed to diverticular bleeding, successfully managed endoscopically with clip placement. - No evidence of ongoing bleeding post-procedure; Hgb stabilized after transfusion (last Hgb 8.8 g/dL). - Gastritis was noted on EGD but not considered the source of acute bleeding. - Sigmoid colon polyp removed; pathology pending. - No evidence of acute diverticulitis on interval imaging or endoscopy at the time of colonoscopy. - Alcohol withdrawal managed per protocol; no complications. - Incidental findings (liver lesion, gallbladder calculus) require outpatient follow-up. Discharge Plan - Diet: Advance as tolerated. - Medications: Continue PPI, avoid NSAIDs, resume home meds as appropriate. - Follow-up: GI clinic in 1 week, repeat colonoscopy as indicated by pathology, outpatient imaging for liver lesion as needed. - Instructions: Monitor for recurrent bleeding, abdominal pain, or signs of infection. Avoid aspirin/NSAIDs. - Pathology: Await results for gastric biopsies and sigmoid polyp. Work Car Operator(s): [place] digestive specialist, Dr. Lavell Maynard Assessment/Plan: Final Diagnoses 1. Acute lower GI bleeding secondary to diverticulosis (status post endoscopic clip placement) 2. Iron deficiency anemia secondary to GI blood loss 3. Gastritis (biopsied) 4. Sigmoid colon polyp (removed, pathology pending) 5. Alcohol use disorder 6. Incidental 1.4 cm hypodense liver lesion 7. Gallbladder calculus without cholecystitis Admitting Diagnosis [1. Acute Diverticulitis vs. Colonic Neoplasm (POA): CT abdomen/pelvis shows segmental wall thickening at the hepatic flexure with scattered diverticula. Acute diverticulitis is likely, but underlying colonic neoplasm cannot be excluded. 2. Incidental 1.4 cm Hypodense Liver Lesion (POA): Detected on CT; etiology undetermined. 3. Gallbladder Calculus, No Acute Cholecystitis (POA): Cholelithiasis identified on CT without evidence of acute inflammation. 4. Acute GI Bleed, Downtrending (POA): History of rectal bleeding with improving trend. EGD revealed gastritis. 5. Gastritis (POA): Confirmed on EGD. 6. Alcohol Abuse (POA): Ongoing risk factor; patient on CIWA protocol. 7. Status post assisted fall secondary to fainting episode attributed to fear of Patient seen and examined in room his own blood Home Medications: No Active Prescriptions or Reported Meds Time spent arranging discharge: 31-60 minutes ATTESTATION BY PHYSICIAN I have seen and examined the patient. I reviewed the documentation, medical decision making, and treatment plan as noted by the mid-level provider above. I agree with the findings and plan of care. STEW DUGGAN MD, [facility] Jan 30, 2025 12:12
--- NOTE | 2025-01-30 16:34 | HMCIMG ---
Examination NM radiolabeled red blood cell study History Gastrointestinal bleeding Technique After IV administration of Tc-99m labeled red autologous blood cells, anterior projection images of the abdomen and pelvis were obtained dynamically for one hour. Findings Following administration of radiolabeled red blood cells, there is normal activity seen in cardiovascular and genitourinary structures, the liver and spleen. There is no evidence for extravasation of radiolabeled red blood cells during the examination. IMPRESSION: No evidence of gastrointestinal hemorrhage during the course of examination acquisition. /[place]
--- NOTE | 2025-01-30 18:15 | NUR ---
RAPID RESPONSE NURSE WAS CALLED INTO ROOM BY PATIENT'S DAUGHTER. STATED SOMETHING IS WRONG. UPON ASSESSMENT PATIENT WAS FOUND IN BATHROOM SITTING ON CHAIR WITH SON IN LAW AT PATIENT'S SIDE HOLDING HIM UP. PATIENT FAINTED POST BM, BM NOTED WITH BRIGHT RED BLOOD. STERNAL RUB DONE 3 TIMES, BLOOD PRESSURE 80/63 SPO2-80%, PATIENT NOT RESPONDING TO COMMANDS. PATIENT'S EYES ROLLED BACK AND PATIENT BECAME LIMP. RAPID RESPONSE WAS CALLED. PATIENT ASSISTED BACK TO BED BY VESSEL CAPTAIN AND NURSE. LARGE BRIGHT RED BLOOD CLOTS NOTED ON FLOOR. PATIENT WAS BREATHING AND WITH A PULSE. VITALS: BLOOD PRESSURE 87/61, HR-71, SPO2-100% VIA 15 LPM NR, BLOOD SUGAR OF 134. RAPID RESPONSE WAS CLEARED AT 1816. VITALS AT 1817; BLOOD PRESSURE 99/65, HR 77 BPM, SPO2-100% VIA NR 15 LPM. PATIENT WAS PENDING DISCHARGE TO HOME. PER HOSPITALIST GROUP HOLD DISCHARGE, ORDER STAT CBC, CONTINUE TO MONITOR VITALS AND START LR AT 100 ML/HR.
[2025-01-30 19:05] LABS: IMMATURE GRANULOCYTE ABSOLUTE 0.14 K/uL (0-1); NUCLEATED RED BLOOD CELLS 0.4 % (0.0-0.19); PLATELET COUNT (AUTO) 293 K/uL (130-400); RED BLOOD CELL COUNT(AUTO) 2.86 MIL/uL (4.50-6.20); RED CELL DISTRIBUTION WIDTH 14.2 % (11.0-15.5); WHITE BLOOD COUNT (AUTO) 9.8 K/uL (4.8-10.8)
[2025-01-30] MEDS: LACTATED RINGERS 1000ML 1,000 ML IV SCH (19:40)
[2025-01-31] VITALS (7 sets, daily range): BP systolic 107–133; BP diastolic 65–77; PULSE 72–89; RESP 16–18; TEMP 98.1–98.4; O2SAT 99
[2025-01-31 05:01] LABS: IMMATURE GRANULOCYTE ABSOLUTE 0.05 K/uL (0-1); NUCLEATED RED BLOOD CELLS 0.3 % (0.0-0.19); PLATELET COUNT (AUTO) 267 K/uL (130-400); RED BLOOD CELL COUNT(AUTO) 2.65 MIL/uL (4.50-6.20); RED CELL DISTRIBUTION WIDTH 14.2 % (11.0-15.5); WHITE BLOOD COUNT (AUTO) 10.4 K/uL (4.8-10.8)
--- NOTE | 2025-01-31 12:03 | DS ---
Discharge Summary Hospital Course Summary: Discharge was initially planned on 01/30/25; however, discharge was held after a rapid response was called for a syncopal episode following a bowel movement, during which bright red blood with clots was noted. The patient became hypotensive and briefly unresponsive. Rapid response was initiated with subseque nt stabilization of vital signs. Per hospitalist group, discharge was held, and STAT CBC was obtained, IV LR initiated at 100 mL/hr, and the patient was closely monitored. Today, the patient was seen and examined at bedside and is back to baseline, awake, alert, and appropriately answering questions. Vital signs stable: BP 107/65, HR 72, RR 16, SpO? 99% on room air. Repeat H&H stable at 8.4/24.3, with no evidence of recurrent bleeding. Final diagnosis, hospital course, and treatment plan were discussed with the patient and family. Lifestyle modifications were reviewed, including increasing dietary fiber intake and alcohol cessation. The patient verbalized understanding. He is medically stable for discharge. Remarketing Manager(s): [place] Digestive specialist Dr. Douglas- Surgeon Assessment/Plan: Final Diagnoses 1. Acute lower GI bleeding secondary to diverticulosis (status post endoscopic clip placement) 2. Iron deficiency anemia secondary to GI blood loss 3. Gastritis (biopsied) 4. Sigmoid colon polyp (removed, pathology pending) 5. Alcohol use disorder 6. Incidental 1.4 cm hypodense liver lesion 7. Gallbladder calculus without cholecystitis Admitting Diagnosis [1. Acute Diverticulitis vs. Colonic Neoplasm (POA): CT abdomen/pelvis shows segmental wall thickening at the hepatic flexure with scattered diverticula. Acute diverticulitis is likely, but underlying colonic neoplasm cannot be excluded. 2. Incidental 1.4 cm Hypodense Liver Lesion (POA): Detected on CT; etiology undetermined. 3. Gallbladder Calculus, No Acute Cholecystitis (POA): Cholelithiasis identified on CT without evidence of acute inflammation. 4. Acute GI Bleed, Downtrending (POA): History of rectal bleeding with improving trend. EGD revealed gastritis. 5. Gastritis (POA): Confirmed on EGD. 6. Alcohol Abuse (POA): Ongoing risk factor; patient on CIWA protocol. 7. Status post assisted fall secondary to fainting episode attributed to fear of Patient seen and examined in room his own blood Discharge Instructions: Discharge Follow-Up (Updated) GI follow-up in 1 week PCP follow?up in 23 days Monitor for recurrent bleeding, dizziness, or syncope Avoid NSAIDs and alcohol; increase dietary fiber Home Medications: No Active Prescriptions or Reported Meds Time spent arranging discharge: 31-60 minutes ATTESTATION BY PHYSICIAN I have seen and examined the patient. I reviewed the documentation, medical decision making, and treatment plan as noted by the mid-level provider above. I agree with the findings and plan of care. DOUGIE KEENAN MD, [facility] Jan 31, 2025 12:03
--- NOTE | 2025-01-31 14:26 | PN ---
GENERAL SURGERY PROGRESS NOTE DATE OF SERVICE: Jan 31, 2025 TIME OF SERVICE: 14:26 PROBLEM LISTS: [ ] INTERVAL HISTORY: [ ] PHYSICAL EXAMINATION: GENERAL: [Patient is lying comfortably in bed, not in any obvious distress.] HEAD: [Normal with no signs of head trauma.] EYES: [Not pale not jaundiced afebrile to touch.] ENT: [ Normal.] NECK: [Supple,no tenderness,no lymphadenopathy,no masses,no thyromegaly ,no bruits, no JVD.] LUNGS: [Clear breath sounds bilaterally. No wheezes, rales, or rhonchi.] HEART: [Regular rate and rhythm. Normal S1 and S2, without murmurs, rub or gallop.] VASC: [No edema. Peripheral pulses normal and equal in all extremities.] ABD: [Bowel sounds present,soft, nontender, no masses, no organomegaly.] : [Normal, no suprapubic tenderness.] LYMPH: [No lymphadenopathy noted.] EXT: [ Warm soft, non tender.] SKIN: [ No rashes or lesions.] NEURO: [ Awake Alert and oriented x3.] LABORATORY: [ ] Hematology Labs: Test 01/31/25 04:28 Range/Units White Blood Count 10.4 4.8-10.8 K/uL Red Blood Count 2.65 L 4.50-6.20 MIL/uL Hemoglobin 8.4 L 14.0-18.0 g/dL Hematocrit 24.3 L 42-54 % Mean Corpuscular Volume 91.7 79-99 fL Mean Corpuscular Hemoglobin 31.7 27.0-33.0 pg Mean Corpuscular Hemoglobin Concent 34.6 32.0-36.0 g/dL Red Cell Distribution Width 14.2 11.0-15.5 % Platelet Count 267 130-400 K/uL Mean Platelet Volume 9.7 7.5-10.5 fL Immature Granulocyte % (Auto) 0.5 0-1 % Neutrophils (%) (Auto) 70.1 40.0-77.0 % Lymphocytes (%) (Auto) 22.2 21.0-51.0 % Monocytes (%) (Auto) 5.9 3.0-13.0 % Eosinophils (%) (Auto) 1.1 0.0-8.0 % Basophils (%) (Auto) 0.2 0.0-5.0 % Neutrophils # (Auto) 7.3 1.8-7.7 K/uL Lymphocytes # (Auto) 2.3 1.0-4.8 K/uL Monocytes # (Auto) 0.6 0.1-1.0 K/uL Eosinophils # (Auto) 0.11 0.00-0.70 K/uL Basophils # (Auto) 0.02 0.00-0.20 K/uL Absolute Immature Granulocyte (auto 0.05 0-1 K/uL Nucleated Red Blood Cells 0.3 H 0.0-0.19 % Chemistry Labs: Test 01/30/25 03:27 01/29/25 15:50 Range/Units Sodium Level 142 136-145 mmol/L Potassium Level 3.5 3.5-5.1 mmol/L Chloride Level 106 101-111 mmol/L Carbon Dioxide Level 29 21-32 mmol/L Blood Urea Nitrogen 5 L 7-18 mg/dL Creatinine 0.9 0.5-1.3 mg/dL Glomerular Filtration Rate Calc 96 >90 mL/min Random Glucose 90 70-105 mg/dL Total Calcium 7.6 L 8.5-10.1 mg/dL Magnesium Level 2.00 1.80-2.40 mg/dL Total Bilirubin 0.2 0.2-1.0 mg/dL Aspartate Amino Transf (AST/SGOT) 19 10-37 U/L Alanine Aminotransferase (ALT/SGPT) 19 12-78 U/L Alkaline Phosphatase 40 L 50-136 U/L Total Protein 5.8 L 6.0-8.3 g/dL Albumin 2.6 L 3.5-5.0 g/dL DIAGNOSTICS / RADIOLOGY: [Copy/Paste Echos/Imaging Report here] ASSESSMENT: [] Lower GI bleed No evidence PLAN: [] NPO/IVF/IV ANTIOBIOTICS Labs May need transfusion if hemoglobin is below seven GI for panendoscopy EGD and colonoscopy LILI GARCIA MD Jan 31, 2025 14:26
--- NOTE | 2025-01-31 17:12 | PN ---
[facility] PROGRESS NOTE Date of Service: Jan 31, 2025 Time of Service: 17:05 SUBJECTIVE: [Discharge was initially planned on 01/30/25; however, discharge was held after a rapid response was called for a syncopal episode following a bowel movement, during which bright red blood with clots was noted. The patient became hypotensive and briefly unresponsive. Rapid response was initiated with subsequent stabilization of vital signs. Per hospitalist group, discharge was held, and STAT CBC was obtained, IV LR initiated at 100 mL/hr, and the patient was closely monitored. Today, the patient was seen and examined at bedside and is back to baseline, awake, alert, and appropriately answering questions. Vital signs stable: BP 107/65, HR 72, RR 16, SpO? 99% on room air. Repeat H&H stable at 8.4/24.3, with no evidence of recurrent bleeding. Because of downtrending H&H, and soft blood pressure today. Dr. Keenan recommended patient to monitored closely and repeat labs tomorrow. REVIEW OF SYSTEMS CONSTITUTIONAL: Denies fevers, chills, or night sweats. No unintentional weight loss reported. NEUROLOGICAL: Denies headache, amaurosis fugax, motor weakness, sensory deficit, vertigo/spinning sensation, gait abnormalities, or tremors. ENT: No hearing loss, otalgia, otorrhea, rhinitis, rhinorrhea, hoarseness, or sore throat. CARDIOVASCULAR: Denies any exertional angina, dyspnea on exertion, orthopnea, paroxysmal nocturnal dyspnea, palpitations, life-threatening arrhythmias, claudication. PULMONARY: Denies any shortness of breath, cough, phlegm/sputum, hemoptysis, pleuritic chest pain. SLEEP: Denies morning headaches, daytime somnolence or napping. Denies difficulty falling asleep, staying asleep, waking from sleep. Denies knowledge of snoring. GASTROINTESTINAL: Denies any type of dysphagia to either liquids or solids. Denies nausea, vomiting, pyrosis, early satiety, abdominal pain, diarrhea, constipation, or changes in stool consistency or caliber. Denies coffee-ground emesis, hematemesis, hematochezia, or melanotic stools. GENITOURINARY: Denies frequency, urgency, nocturia, hematuria or incontinence (Storage/Irritative symptoms.) Low urinary stream, straining to void, urinary i ntermittency or hesitancy, splitting of the voiding stream, terminal dribbling. ENDOCRINOLOGIC: Denies polyuria, polydipsia, polyphagia or heat/cold intolerances. HEMATOLOGIC: Denies thrombophilia/previous clots, or coagulopathy/bleeding disorders. ONCOLOGIC: Denies personal history of malignancy. DERMATOLOGIC: Denies rashes or pruritus. PSYCHIATRIC: Denies any suicidal or homicidal ideation. Denies hallucinations. PHYSICAL EXAM GENERAL APPEARANCE: The patient is awake, alert, and oriented, in no acute cardiopulmonary distress. NEUROLOGICAL: Cranial nerves II-XII grossly intact. Motor is 5/5 in bilateral upper and lower extremities proximal to distal. No sensory deficits. HEENT: Face is symmetric. Pupils are equal and reactive. Extraocular movements are intact. NECK: Supple. No JVD. No thyromegaly. No submental, submandibular, pre- /postauricular, occipital or supraclavicular lymphadenopathy. CHEST: Normal chest expansion. No Telemetry. LUNGS: Absence of any rales, rhonchi or any wheezing. CARDIOVASCULAR: Regular. S1 and S2 normal. No appreciable rubs, murmurs or gallops. ABDOMEN: Soft, nontender, and nondistended. There is no rebound, voluntary guarding, or rigidity. : Deferred. No Payne. EXTREMITIES: Non-edematous and not cyanotic. No clubbing. Good capillary refill. SKIN: No skin breakdown. Vital Signs (last 8hr) Date Time Temp Pulse Resp B/P (MAP) Pulse Ox O2 Delivery O2 Flow Rate FiO2 01/31/25 12:00 98.1 84 17 121/77 99 Room Air LABS: Laboratory: Test 01/31/25 04:28 01/30/25 03:27 Range/Units White Blood Count 10.4 4.8-10.8 K/uL Red Blood Count 2.65 L 4.50-6.20 MIL/uL Hemoglobin 8.4 L 14.0-18.0 g/dL Hematocrit 24.3 L 42-54 % Mean Corpuscular Volume 91.7 79-99 fL Mean Corpuscular Hemoglobin 31.7 27.0-33.0 pg Mean Corpuscular Hemoglobin Concent 34.6 32.0-36.0 g/dL Red Cell Distribution Width 14.2 11.0-15.5 % Platelet Count 267 130-400 K/uL Mean Platelet Volume 9.7 7.5-10.5 fL Immature Granulocyte % (Auto) 0.5 0-1 % Neutrophils (%) (Auto) 70.1 40.0-77.0 % Lymphocytes (%) (Auto) 22.2 21.0-51.0 % Monocytes (%) (Auto) 5.9 3.0-13.0 % Eosinophils (%) (Auto) 1.1 0.0-8.0 % Basophils (%) (Auto) 0.2 0.0-5.0 % Neutrophils # (Auto) 7.3 1.8-7.7 K/uL Lymphocytes # (Auto) 2.3 1.0-4.8 K/uL Monocytes # (Auto) 0.6 0.1-1.0 K/uL Eosinophils # (Auto) 0.11 0.00-0.70 K/uL Basophils # (Auto) 0.02 0.00-0.20 K/uL Absolute Immature Granulocyte (auto 0.05 0-1 K/uL Nucleated Red Blood Cells 0.3 H 0.0-0.19 % Sodium Level 142 136-145 mmol/L Potassium Level 3.5 3.5-5.1 mmol/L Chloride Level 106 101-111 mmol/L Carbon Dioxide Level 29 21-32 mmol/L Blood Urea Nitrogen 5 L 7-18 mg/dL Creatinine 0.9 0.5-1.3 mg/dL Glomerular Filtration Rate Calc 96 >90 mL/min Random Glucose 90 70-105 mg/dL Total Calcium 7.6 L 8.5-10.1 mg/dL Magnesium Level 2.00 1.80-2.40 mg/dL Current Medications Medications (Trade) Dose Ordered Sig/Ashley Route PRN Reason Start Time Stop Time Status Last Admin Dose Admin Acetaminophen (TYLenol 325MG TAB) 650 mg Q6H PRN PO TEMPERATURE GREATER THAN 101.5 01/27/25 02:30 02/26/25 02:29 Chlordiazepoxide HCl (LIBrium 25 MG CAP) 25 mg Q2H PRN PO ALCOHOL WITHDRAWAL PROTOCOL 01/27/25 12:30 02/03/25 12:29 Diazepam (VALium 5 MG/ML 2 ML SYG) 10 mg Q4H PRN IVP ALCOHOL WITHDRAWAL PROTOCOL 01/27/25 12:30 02/03/25 12:29 Hydralazine HCl (APRESOLine 20MG INJ) 10 mg Q6H PRN IV For:SBP above 160;DBP above 90 01/27/25 02:30 02/26/25 02:29 Lactated Ringer's 1,000 ml @ 100 mls/hr Q10H IV 01/30/25 19:00 03/01/25 18:59 01/31/25 05:10 100 MLS/HR Metronidazole/ Sodium Chloride 100 ml @ 100 mls/hr Q8H6 IVPB 01/27/25 06:00 01/27/25 09:58 DC 01/27/25 05:48 100 MLS/HR Morphine Sulfate (morPHINE 4MG SYG) 2 mg Q4H PRN IVP SEVERE PAIN (7-10) 01/27/25 02:30 02/03/25 02:29 Octreotide Acetate 1250 mcg/ Sodium Chloride 250 ml @ 0 mls/hr PROTOCOL IV 01/27/25 02:30 01/29/25 15:57 DC 01/29/25 04:14 5 MLS/HR Ondansetron HCl (zoFRAN 4MG INJ) 4 mg Q6H PRN IV NAUSEA/VOMITING 01/27/25 02:30 02/26/25 02:29 Pantoprazole Sodium (PROTonix 40MG TAB) 40 mg DAILY PO 01/30/25 09:00 03/01/25 08:59 01/31/25 08:43 40 MG Pantoprazole Sodium 80 mg/ Sodium Chloride 100 ml @ 10 mls/hr Q10H IV 01/27/25 02:30 01/29/25 15:57 DC 01/29/25 04:08 10 MLS/HR Pharmacy Profile Note (Pharmacy Communication) 1 each PROTOCOL PRN MISC ETOH Withdrawal Score changes 01/27/25 12:30 01/30/25 20:03 DC Piperacillin Sod/ Tazobactam Sod (Zosyn 3.375gm+NS 50ml) 3.375 gm Q8H IV 01/27/25 03:00 02/06/25 02:59 01/31/25 11:10 3.375 GM Sodium Chloride 1,000 ml @ 100 mls/hr Q10H IV 01/27/25 02:30 01/31/25 00:06 DC 01/29/25 04:08 100 MLS/HR Thiamine HCl 100 mg/Folic Acid 1 mg/Multivitamins/ Minerals 10 ml/ Sodium Chloride 1,011.2 ml @ 100 mls/ hr Q24H IV 01/27/25 12:30 01/29/25 22:37 DC 01/29/25 21:44 100 MLS/HR DIAGNOSTICS / RADIOLOGY: [ ] Assessment Syncopal episode- possibly vasovagal (blood exposure) vs anemia Acute lower GI bleeding secondary to diverticulosis (status post endoscopic clip placement) Iron deficiency anemia secondary to GI blood loss Gastritis (biopsied) Sigmoid colon polyp (removed, pathology pending) Alcohol use disorder Incidental 1.4 cm hypodense liver lesion Gallbladder calculus without cholecystitis PLAN 1. Syncopal episode possibly vasovagal (blood exposure) vs anemia -Continue telemetry and orthostatic vitals. -Monitor BP closely; maintain IV access and fall precautions. -Reassess after H/H stabilization. 2. Acute lower GI bleeding secondary to diverticulosis (s/p endoscopic clip placement) -Hold discharge today. -Monitor H/H q812 hrs and repeat CBC in AM. -Maintain IV fluids; transfuse PRBCs if Hgb <7 g/dL or symptomatic. -Advance diet as tolerated if no further bleeding. -Avoid NSAIDs/anticoagulants unless essential. 3. Iron deficiency anemia secondary to GI blood loss -Trend iron studies as outpatient once bleeding resolved. -Start iron supplementation when tolerating PO and no ongoing bleed. 4. Gastritis (biopsied) -Continue PPI therapy. -Avoid NSAIDs and alcohol. -Follow pathology results. 5. Sigmoid colon polyp (removed, pathology pending) -Await pathology. -GI follow-up for surveillance recommendations. 6. Alcohol use disorder -Monitor for withdrawal symptoms; [facility] protocol if indicated. -Thiamine, folate, and multivitamin supplementation. -Technical Publications Manager on alcohol cessation; offer resources. 7. Incidental 1.4 cm hypodense liver lesion Recommend outpatient imaging (RUQ ultrasound or contrast MRI/CT liver) for further characterization. 8. Gallbladder calculus without cholecystitis -No acute intervention. -Outpatient surgical referral if symptomatic. Disposition Continue to hold discharge today. Monitor H/H, BP, and labs in AM. If hemodynamically stable with improved labs and no recurrent bleeding, patient may be discharged tomorrow with close GI follow-up. Discussed with Dr. Keenan, above plan was formulated ATTESTATION BY PHYSICIAN I have seen and examined the patient. I reviewed the documentation, medical decision making, and treatment plan as noted by the mid-level provider above. I agree with the findings and plan of care. DOUGIE KEENNA MD, [facility] Jan 31, 2025 17:12
[2025-02-01] VITALS (7 sets, daily range): BP systolic 97–128; BP diastolic 51–72; PULSE 67–80; RESP 16–18; TEMP 97.8–98.2; O2SAT 98
[2025-02-01 08:23] LABS: IMMATURE GRANULOCYTE ABSOLUTE 0.10 K/uL (0-1); NUCLEATED RED BLOOD CELLS 0.3 % (0.0-0.19); PLATELET COUNT (AUTO) 234 K/uL (130-400); RED BLOOD CELL COUNT(AUTO) 2.32 MIL/uL (4.50-6.20); RED CELL DISTRIBUTION WIDTH 14.3 % (11.0-15.5); WHITE BLOOD COUNT (AUTO) 6.9 K/uL (4.8-10.8)
--- NOTE | 2025-02-01 09:49 | PN ---
[facility] PROGRESS NOTE Date of Service: Feb 01, 2025 Time of Service: 09:38 SUBJECTIVE: [Discharge was initially planned on 01/30/25; however, discharge was held after a rapid response was called for a syncopal episode following a bowel movement, during which bright red blood with clots was noted. The patient became hypotensive and briefly unresponsive. Rapid response was initiated with subsequent stabilization of vital signs. Per hospitalist group, discharge was held, and STAT CBC was obtained, IV LR initiated at 100 mL/hr, and the patient was closely monitored. Today, the patient was seen and examined at bedside and is back to baseline, awake, alert, and appropriately answering questions. Vital signs stable: BP 107/65, HR 72, RR 16, SpO? 99% on room air. Repeat H&H stable at 8.4/24.3, with no evidence of recurrent bleeding. Because of downtrending H&H, and soft blood pressure today. Dr. Keenan recommended patient to monitored closely and repeat labs tomorrow. 02/01/2s/p EGD and colonoscopy continue to monitor hemoglobin latest 7.2 we will repeat at 1:00 p.m..thereafter H/H every 8 hrs transfuse if hgb less 7.0 . Reach out to GI patient continues with melena. Surgeon was also made aware. Patient continues with PPIs. PATIENT IS SEEN AND EXAMINED, COMFORTABLY IN BED, ALERT ORIENTED X3. DENIES NAUSEA, NO VOMITING, NO ABDOMINAL DISCOMFORT. HAD A BOWEL MOVEMENT THIS MORN ING, DENIES MELENA, NO HEMATOCHEZIA. THERE IS NO HEMATEMESIS. HEMOGLOBIN TODAY AT 7.2. SPOKE WITH THE GENERAL SURGERY, LIKELY FROM LARGE AMOUNT OF BLOOD UPON INITIAL ADMISSION. RECOMMENDED TO TRANSFUSE 1 UNIT OF PRBC, IF NO ACTIVE BLEEDING OKAY TO DISCHARGE FROM SURGICAL STANDPOINT. DISCUSSED WITH GI, RECOMMENDED REPEAT BLEEDING SCAN IF ACTIVE GI BLEED RECURS. IF NOT OKAY TO FOLLOW SURGICAL RECOMMENDATIONS. WE WILL TRANSFUSE 1 UNIT OF PRBC AND FOLLOW CBC POST TRANSFUSION. ANTICIPATE DISCHARGE HOME IN THE NEXT 24 HOURS IF MEDICALLY STABLE AND NO SIGNS OF GI BLEED. REVIEW OF SYSTEMS CONSTITUTIONAL: Denies fevers, chills, or night sweats. No unintentional weight loss reported. NEUROLOGICAL: Denies headache, amaurosis fugax, motor weakness, sensory deficit, vertigo/spinning sensation, gait abnormalities, or tremors. ENT: No hearing loss, otalgia, otorrhea, rhinitis, rhinorrhea, hoarseness, or sore throat. CARDIOVASCULAR: Denies any exertional angina, dyspnea on exertion, orthopnea, paroxysmal nocturnal dyspnea, palpitations, life-threatening arrhythmias, claudication. PULMONARY: Denies any shortness of breath, cough, phlegm/sputum, hemoptysis, pleuritic chest pain. SLEEP: Denies morning headaches, daytime somnolence or napping. Denies difficulty falling asleep, staying asleep, waking from sleep. Denies knowledge of snoring. GASTROINTESTINAL: Denies any type of dysphagia to either liquids or solids. Denies nausea, vomiting, pyrosis, early satiety, abdominal pain, diarrhea, constipation, or changes in stool consistency or caliber. Denies coffee-ground emesis, hematemesis, hematochezia, or melanotic stools. GENITOURINARY: Denies frequency, urgency, nocturia, hematuria or incontinence (Storage/Irritative symptoms.) Low urinary stream, straining to void, urinary intermittency or hesitancy, splitting of the voiding stream, terminal dribbling. ENDOCRINOLOGIC: Denies polyuria, polydipsia, polyphagia or heat/cold intolerances. HEMATOLOGIC: Denies thrombophilia/previous clots, or coagulopathy/bleeding disorders. ONCOLOGIC: Denies personal history of malignancy. DERMATOLOGIC: Denies rashes or pruritus. PSYCHIATRIC: Denies any suicidal or homicidal ideation. Denies hallucinations. PHYSICAL EXAM GENERAL APPEARANCE: The patient is awake, alert, and oriented, in no acute cardiopulmonary distress. NEUROLOGICAL: Cranial nerves II-XII grossly intact. Motor is 5/5 in bilateral upper and lower extremities proximal to distal. No sensory deficits. HEENT: Face is symmetric. Pupils are equal and reactive. Extraocular movements are intact. NECK: Supple. No JVD. No thyromegaly. No submental, submandibular, pre-/postauricular, occipital or supraclavicular lymphadenopathy. CHEST: Normal chest expansion. No Telemetry. LUNGS: Absence of any rales, rhonchi or any wheezing. CARDIOVASCULAR: Regular. S1 and S2 normal. No appreciable rubs, murmurs or gallops. ABDOMEN: Soft, nontender, and nondistended. There is no rebound, voluntary guarding, or rigidity. : Deferred. No Payne. EXTREMITIES: Non-edematous and not cyanotic. No clubbing. Good capillary refill. SKIN: No skin breakdown. Vital Signs (last 8hr) Date Time Temp Pulse Resp B/P (MAP) Pulse Ox O2 Delivery O2 Flow Rate FiO2 02/01/25 08:00 97.9 67 16 101/65 98 Room Air 02/01/25 04:00 98.1 70 18 97/51 98 Room Air LABS: Laboratory: Test 02/01/25 08:13 Range/Units White Blood Count 6.9 4.8-10.8 K/uL Red Blood Count 2.32 L 4.50-6.20 MIL/uL Hemoglobin 7.2 L 14.0-18.0 g/dL Hematocrit 21.8 L 42-54 % Mean Corpuscular Volume 94.0 79-99 fL Mean Corpuscular Hemoglobin 31.0 27.0-33.0 pg Mean Corpuscular Hemoglobin Concent 33.0 32.0-36.0 g/dL Red Cell Distribution Width 14.3 11.0-15.5 % Platelet Count 234 130-400 K/uL Mean Platelet Volume 8.9 7.5-10.5 fL Immature Granulocyte % (Auto) 1.5 H 0-1 % Neutrophils (%) (Auto) 65.4 40.0-77.0 % Lymphocytes (%) (Auto) 24.5 21.0-51.0 % Monocytes (%) (Auto) 5.7 3.0-13.0 % Eosinophils (%) (Auto) 2.5 0.0-8.0 % Basophils (%) (Auto) 0.4 0.0-5.0 % Neutrophils # (Auto) 4.5 1.8-7.7 K/uL Lymphocytes # (Auto) 1.7 1.0-4.8 K/uL Monocytes # (Auto) 0.4 0.1-1.0 K/uL Eosinophils # (Auto) 0.17 0.00-0.70 K/uL Basophils # (Auto) 0.03 0.00-0.20 K/uL Absolute Immature Granulocyte (auto 0.10 0-1 K/uL Nucleated Red Blood Cells 0.3 H 0.0-0.19 % Current Medications Medications (Trade) Dose Ordered Sig/Ashley Route PRN Reason Start Time Stop Time Status Last Admin Dose Admin Acetaminophen (TYLenol 325MG TAB) 650 mg Q6H PRN PO TEMPERATURE GREATER THAN 101.5 01/27/25 02:30 02/26/25 02:29 Chlordiazepoxide HCl (LIBrium 25 MG CAP) 25 mg Q2H PRN PO ALCOHOL WITHDRAWAL PROTOCOL 01/27/25 12:30 02/03/25 12:29 Diazepam (VALium 5 MG/ML 2 ML SYG) 10 mg Q4H PRN IVP ALCOHOL WITHDRAWAL PROTOCOL 01/27/25 12:30 02/03/25 12:29 Hydralazine HCl (APRESOLine 20MG INJ) 10 mg Q6H PRN IV For:SBP above 160;DBP above 90 01/27/25 02:30 02/26/25 02:29 Lactated Ringer's 1,000 ml @ 100 mls/hr Q10H IV 01/30/25 19:00 03/01/25 18:59 02/01/25 08:28 100 MLS/HR Metronidazole/ Sodium Chloride 100 ml @ 100 mls/hr Q8H6 IVPB 01/27/25 06:00 01/27/25 09:58 DC 01/27/25 05:48 100 MLS/HR Morphine Sulfate (morPHINE 4MG SYG) 2 mg Q4H PRN IVP SEVERE PAIN (7-10) 01/27/25 02:30 02/01/25 05:29 DC Octreotide Acetate 1250 mcg/ Sodium Chloride 250 ml @ 0 mls/hr PROTOCOL IV 01/27/25 02:30 01/29/25 15:57 DC 01/29/25 04:14 5 MLS/HR Ondansetron HCl (zoFRAN 4MG INJ) 4 mg Q6H PRN IV NAUSEA/VOMITING 01/27/25 02:30 02/26/25 02:29 Pantoprazole Sodium (PROTonix 40MG TAB) 40 mg DAILY PO 01/30/25 09:00 03/01/25 08:59 02/01/25 08:28 40 MG Pantoprazole Sodium 80 mg/ Sodium Chloride 100 ml @ 10 mls/hr Q10H IV 01/27/25 02:30 01/29/25 15:57 DC 01/29/25 04:08 10 MLS/HR Pharmacy Profile Note (Pharmacy Communication) 1 each PROTOCOL PRN MISC ETOH Withdrawal Score changes 01/27/25 12:30 01/30/25 20:03 DC Piperacillin Sod/ Tazobactam Sod (Zosyn 3.375gm+NS 50ml) 3.375 gm Q8H IV 01/27/25 03:00 02/06/25 02:59 02/01/25 03:25 3.375 GM Sodium Chloride 1,000 ml @ 100 mls/hr Q10H IV 01/27/25 02:30 01/31/25 00:06 DC 01/29/25 04:08 100 MLS/HR Thiamine HCl 100 mg/Folic Acid 1 mg/Multivitamins/ Minerals 10 ml/ Sodium Chloride 1,011.2 ml @ 100 mls/ hr Q24H IV 01/27/25 12:30 01/29/25 22:37 DC 01/29/25 21:44 100 MLS/HR DIAGNOSTICS / RADIOLOGY: [ ] Assessment Syncopal episode- possibly vasovagal (blood exposure) vs anemia Acute lower GI bleeding secondary to diverticulosis (status post endoscopic clip placement) Iron deficiency anemia secondary to GI blood loss Gastritis (biopsied) Sigmoid colon polyp (removed, pathology pending) Alcohol use disorder Incidental 1.4 cm hypodense liver lesion Gallbladder calculus without cholecystitis PLAN 1. Syncopal episode possibly vasovagal (blood exposure) vs anemia -Continue telemetry -Monitor BP closely; maintain IV access and fall precautions. -Reassess after H/H stabilization. latest 7.2 will repeat H/H at 1300 thereafter q8 hrs 2. Acute lower GI bleeding secondary to diverticulosis (s/p endoscopic clip placement) -s/p EGD and Colonoscopy -Monitor H/H repeat 1300 -Maintain IV fluids; transfuse PRBCs if Hgb <7 g/dL or symptomatic. -Advance diet as tolerated if no further bleeding. -Avoid NSAIDs/anticoagulants unless essential. 3. Iron deficiency anemia secondary to GI blood loss -Trend iron studies as outpatient once bleeding resolved. -Start iron supplementation when tolerating PO and no ongoing bleed. 4. Gastritis (biopsied) -Continue PPI therapy. -Avoid NSAIDs and alcohol. -Follow pathology results. 5. Sigmoid colon polyp (removed, pathology pending) -Await pathology. -GI follow-up for surveillance recommendations. 6. Alcohol use disorder -Monitor for withdrawal symptoms; CIWA protocol if indicated. -Thiamine, folate, and multivitamin supplementation. -Heat Treat Puller on alcohol cessation; offer resources. 7. Incidental 1.4 cm hypodense liver lesion Recommend outpatient imaging (RUQ ultrasound or contrast MRI/CT liver) for further characterization. 8. Gallbladder calculus without cholecystitis -No acute intervention. -Outpatient surgical referral if symptomatic. Disposition Continue to hold discharge today. Monitor H/H, BP, and labs in AM. If hemodynamically stable with improved labs and no recurrent bleeding, patient may be discharged tomorrow with close GI follow-up. Discussed with Dr. Keenan, above plan was formulated ATTESTATION BY PHYSICIAN I have seen and examined the patient. I reviewed the documentation, medical decision making, and treatment plan as noted by the mid-level provider above. I agree with the findings and plan of care. DOUGIE KEENAN MD, [facility] Feb 01, 2025 09:49 DOUGIE KEENAN MD Feb 01, 2025 11:14
[2025-02-01 10:47] LABS: CREATININE 1.1 mg/dL (0.5-1.3); GLOMERULAR FILTR. RATE CALC 75.0 mL/min (>90); GLUCOSE,RANDOM 94.0 mg/dL (70-105); SODIUM SERUM 141.0 mmol/L (136-145); UREA NITROGEN, BLOOD 5.0 mg/dL (7-18)
[2025-02-01 10:51] LABS: ASPARTATE AMINOTRANSFERASE 21.0 U/L (10-37); TOTAL PROTEIN, SERUM 6.1 g/dL (6.0-8.3)
[2025-02-02] VITALS: BP 129/73; PULSE 70; RESP 16; TEMP 97.6
[2025-02-02 04:00] VITALS: BP 118/79; PULSE 73; RESP 16; TEMP 98.1
[2025-02-02 08:00] VITALS: BP 132/77; PULSE 74; RESP 18; TEMP 98
[2025-02-02 09:11] VITALS: O2SAT 98
[2025-02-02] MEDS ORDERED: PANT40TA55 PO (10:06)
--- NOTE | 2025-02-02 10:07 | DS ---
Discharge Summary Hospital Course Summary: Admit Date: 01/26/2025 Discharge Date: 01/30/2025 Attending Providers: BRITT Maradiaga; Stew Duggan MD; Lavell Maynard MD; Isreal Vargas Jr., MD Reason for Admission: 64-year-old male admitted for evaluation and management of acute hematochezia and symptomatic anemia. Hospital Course Initial Presentation: The patient presented with acute onset of bright red blood per rectum (hematochezia), associated with dizziness and a syncopal episode. He reported a history of chronic constipation but denied prior similar bleeding episodes. No prior colonoscopy. Social history notable for daily alcohol use. Initial Workup: - Labs: Initial Hgb/Hct 13.5/40.2, downtrending to 7.3/21.8 during admission. WBC elevated on admission, lactic acid mildly elevated, with subsequent normalization. - Imaging: CT abdomen/pelvis showed segmental wall thickening at the hepatic flexure with scattered diverticula, suggestive of acute diverticulitis. Incidental 1.4 cm hypodense liver lesion and gallbladder calculus without cholecystitis were also noted. - Physical Exam: Hemodynamically stable after initial resuscitation. Abdomen soft, nontender, no peritoneal signs. Management: - NPO/clear liquid diet, IV fluids, empiric IV antibiotics (piperacillin- tazobactam), IV PPI, and octreotide infusion. - Serial monitoring of hemoglobin and hematocrit. - DVT prophylaxis with SCDs. - [facility] protocol for alcohol withdrawal. - 1 unit PRBC transfused for Hgb <7.5 g/dL. - Bleeding scan if it is negative, patient will be discharged home Procedures 1. Esophagogastroduodenoscopy (EGD) 01/28/2025 - Indications: Iron deficiency anemia, hematochezia, positive stool occult blood. - Findings: Mild gastritis (localized congestion and erythema) in the stomach; biopsied. Esophagus and duodenum normal. - Complications: None. - Impression: Gastritis; no evidence of upper GI source for bleeding. - Plan: Await pathology, clear liquid diet, proceed with colonoscopy. 2. Colonoscopy 01/29/2025 - Indication: Hematochezia. - Findings: - Traces of hematin (altered blood) throughout the colon. - Extensive diverticulosis in the entire colon; a suspected culprit diverticulum with signs of recent bleeding was identified and treated with a hemostatic clip ([employer]). - 3 mm sessile polyp in the sigmoid colon, removed with cold biopsy forceps. - Small, non-bleeding internal hemorrhoids. - Terminal ileum normal. - Complications: None. - Impression: Suspected resolved diverticular bleeding; diverticulosis; sigmoid colon polyp (removed); non-bleeding hemorrhoids. - Plan: Monitor H&H, clear liquid diet (advance as tolerated), avoid NSAIDs, follow up on pathology, GI follow-up in 1 week. Hospital Course Summary - The patients GI bleeding was attributed to diverticular bleeding, successfully managed endoscopically with clip placement. - No evidence of ongoing bleeding post-procedure; Hgb stabilized after transfusion (last Hgb 8.8 g/dL). - Gastritis was noted on EGD but not considered the source of acute bleeding. - Sigmoid colon polyp removed; pathology pending. - No evidence of acute diverticulitis on interval imaging or endoscopy at the time of colonoscopy. - Alcohol withdrawal managed per protocol; no complications. - Incidental findings (liver lesion, gallbladder calculus) require outpatient follow-up. Discharge Plan - Diet: Advance as tolerated. - Medications: Continue PPI, avoid NSAIDs, resume home meds as appropriate. - Follow-up: GI clinic in 1 week, repeat colonoscopy as indicated by pathology, outpatient imaging for liver lesion as needed. - Instructions: Monitor for recurrent bleeding, abdominal pain, or signs of infection. Avoid aspirin/NSAIDs. - Pathology: Await results for gastric biopsies and sigmoid polyp. Records Management Coordinator(s): Lisbeth digestive specialist, Dr. Lavell Maynard Procedure(s): REASON: syncope ORDERING PHYSICIAN: JAIRO BUSH PROCEDURE: HEAD WO - CT HEAD/BRAIN W/O CONTRAST EXAM: CT Head Without IV contrast. CLINICAL HISTORY: Syncope. TECHNIQUE: Axial computed tomography images of the head/brain without intravenous contrast. COMPARISON: None provided. FINDINGS: BRAIN: Multiple periventricular hypodensities extending in bilateral fronto-parietal lobes, concerning for chronic microangiopathic ischemic changes. Mild diffuse cerebral atrophy in the form of prominent cortical sulci, basal cisterns, and bilateral sylvian fissures. Chronic lacunar infarcts in the right thalamus and left lentiform nucleus. No evidence of acute hemorrhage. No mass lesion. No CT evidence for acute territorial infarct. No midline shift or extra-axial collections. VENTRICLES: No hydrocephalus. ORBITS: The orbits are unremarkable. SINUSES AND MASTOIDS: The paranasal sinuses and mastoid air cells are clear. BONES: No fracture. SOFT TISSUES: Unremarkable. IMPRESSION: Chronic microangiopathic ischemic changes with periventricular hypodensities. Mild diffuse cerebral atrophy with prominent cortical sulci, basal cisterns, and bilateral sylvian fissures. Chronic lacunar infarcts in the right thalamus and left lentiform nucleus. No acute intracranial abnormality. REASON: Abdominal Pain,rectal bleeding ORDERING PHYSICIAN: JAIRO BUSH PROCEDURE: ABD PEL W - CT ABDOMEN/PELVIS W/CONTRAST EXAM: CT Abdomen and Pelvis with IV contrast CLINICAL HISTORY: Abdominal pain. Rectal bleeding. TECHNIQUE: Thin collimated axial CT images of the abdomen and pelvis with intravenous contrast were obtained with sagittal and coronal reformatted images also submitted. CT scan is done according to ALARA (As Low As Reasonably Achievable). COMPARISON: None. FINDINGS: Unremarkable visualized lung parenchyma. No focal abnormality within the pancreas, spleen, adrenals, or kidneys. 1.4 cm hypodense focus in the left lobe of the liver. A 1.3 cm-sized calculus within the gallbladder lumen with no acute cholecystitis. Scattered colonic diverticula. Soft segment concentric wall thickening around the hepatic flexure of the colon, which could be secondary to acute diverticulitis, the possibility of neoplastic thickening cannot be excluded. There is no abnormality within the urinary bladder. Unremarkable reproductive organs. Abdominal and pelvic vessels are patent. No lymphadenopathy. No free fluid. There is no acute osseous abnormality. IMPRESSIONS: Scattered colonic diverticula. Soft segment concentric wall thickening around the hepatic flexure of the colon, which could be secondary to acute diverticulitis, the possibility of neoplastic thickening cannot be excluded. Cholelithiasis with no acute cholecystitis. Assessment/Plan: Discharged dx's; Syncopal episode- possibly vasovagal (blood exposure) vs anemia Acute lower GI bleeding secondary to diverticulosis (status post endoscopic clip placement) Iron deficiency anemia secondary to GI blood loss Gastritis (biopsied) Sigmoid colon polyp (removed, pathology pending) Alcohol use disorder Incidental 1.4 cm hypodense liver lesion Gallbladder calculus without cholecystitis PLAN ADMISSION DATE: 01/27/25 DISCHARGE DATE: 02/02/2025 DISPOSITION: Home CONDITION: Stable CHEMIST BIOLOGICAL(S): GI FOLLOW UP APPOINTMENT(S): .dr. Lavell Maynard one wk; PCP: 2-3 days. PROCEDURES: EGD and Colonoscope IMAGING (S) report attached to summary : MICROBIOLOGY: report attached to summary; ACTIVITY: ab hien HOME MEDICATIONS No Active Prescriptions or Reported Meds new medications: protonix 40 mg po daily TEACHING: Avoid NSAIDs and alcohol; increase dietary fiber Emergency instructions: The patient was instructed to present to the nearest Emergency Department or call 911 should their symptoms return or worsen. Home Medications: No Active Prescriptions or Reported Meds New Medications: Pantoprazole Sodium (Protonix) 40 Mg Ectab 1 TAB PO DAILY for 30 Days, #30 TAB 0 Refills ATTESTATION BY PHYSICIAN I have seen and examined the patient. I reviewed the documentation, medical decision making, and treatment plan as noted by the mid-level provider above. I agree with the findings and plan of care. ESVIN FISHMAN MD, [facility] Feb 02, 2025 10:07
[2025-02-02 10:32] LABS: CREATININE 1.1 mg/dL (0.5-1.3); GLOMERULAR FILTR. RATE CALC 75.0 mL/min (>90); GLUCOSE,RANDOM 88.0 mg/dL (70-105); SODIUM SERUM 139.0 mmol/L (136-145); UREA NITROGEN, BLOOD 6.0 mg/dL (7-18)
[2025-02-02 10:36] LABS: ASPARTATE AMINOTRANSFERASE 21.0 U/L (10-37); TOTAL PROTEIN, SERUM 6.8 g/dL (6.0-8.3)
[2025-02-02 12:00] VITALS: BP 116/63; PULSE 74; RESP 16; TEMP 98
--- NOTE | 2025-02-02 12:42 | EKG ---
[facility] Test Date: 2025-01-29 Test Time: 00:03:35 Pat Name: JOSUÉ WATSON Department: [facility] Patient ID: [id number] Room: 426 1 Gender: M Ophthalmology Technician: RYNE : 1960 Requested By: DOUGIE KEENAN Order Number: [id number] Reading MD: Shawn Davis Measurements Intervals [place] Rate: 63 P: -2 [place]: 142 QRS: -7 QRSD: 94 T: 30 QT: 434 QTc: 444 Interpretive Statements Normal sinus rhythm Moderate voltage criteria for LVH, may be normal variant Compared to ECG 01/26/2025 21:13:18 Left ventricular hypertrophy now present Electronically Signed On 02-02-2025 19:05:41 FIELD MAP TECHNICIAN by Shawn Davis Please click the below link to view image of tracing.
--- NOTE | 2025-02-02 13:35 | NUR ---
PT DC'D HOME PER MD ORDER. DC INSTRUCTIONS GIVEN TO PT AND FAMILY AT BEDSIDE, PT TO F/U WITH PCP AND GI SPECIALIST. STATED UNDERSTANDING. PT IV REMOVED X2, TIPS INTACT. PT DENIES ANY PAIN AT THIS MOMENT AN FAMILY HAS COLLECTED ALL OF PT BELONGINGS. PT WAS WHEELED DOWN TO FRONT LOBBY.
== END 2025-02-02 14:54 | disposition home or self-care (01) | DRG 871 ==
LOC: EDH 20:05 → EDHIP 20:06 → 4DH 01-27 02:12
PROVIDERS: ADMIT Internal Medicine; ATTEND Internal Medicine
PROC: 0DB68ZX Excision of Stomach, Via Natural or Artificial Opening Endoscopic, Diagnostic (ICD-10-PCS; principal; 2025-01-28)
PROC: 0DB78ZX Excision of Stomach, Pylorus, Via Natural or Artificial Opening Endoscopic, Diagnostic (ICD-10-PCS; 2025-01-28)
PROC: 0DBN8ZX Excision of Sigmoid Colon, Via Natural or Artificial Opening Endoscopic, Diagnostic (ICD-10-PCS; 2025-01-29)
PROC: 0W3P8ZZ Control Bleeding in Gastrointestinal Tract, Via Natural or Artificial Opening Endoscopic (ICD-10-PCS; 2025-01-29)
PROC: 30233N1 Transfusion of Nonautologous Red Blood Cells into Peripheral Vein, Percutaneous Approach (ICD-10-PCS; 2025-01-29)
DX: A41.9 Sepsis, unspecified organism (principal); K57.33 Diverticulitis of large intestine without perforation or abscess with bleeding; F10.10 Alcohol abuse, uncomplicated; D50.0 Iron deficiency anemia secondary to blood loss (chronic); K76.9 Liver disease, unspecified; K29.70 Gastritis, unspecified, without bleeding; E87.8 Other disorders of electrolyte and fluid balance, not elsewhere classified; K59.00 Constipation, unspecified; K80.20 Calculus of gallbladder without cholecystitis without obstruction; Z83.3 Family history of diabetes mellitus; Z86.0100 Personal history of colon polyps, unspecified; Z86.73 Personal history of transient ischemic attack (TIA), and cerebral infarction without residual deficits
CPT/HCPCS: 36415; 36430; 43239; 45380; 45382; 70450; 71045; 72125; 74177; 78278; 80048; 80053; 80076; 80305; 81001; 82270; 82550; 82607; 82948; 83540; 83550; 83605; 83735; 84100; 84145; 84484; 85014; 85018; 85025; 85027; 85610; 85730; 86850; 86900; 86901; 86923; 87040; 88305; 88312; 90714; 93005; 99285; A4606; A9512; G0378; J0696; J2003; J2354; J2371; J2405; J2470; J2543; J2704; J3411; J3490; J7030; J7050; P9016; Q9967; A4215; A4221; A4222; A4223; A4620; A4649; A4657; A4663; A7002

== ENCOUNTER 2025-02-03 17:10 | Inpatient (IN) | payer SELFPAY ==
[~2025-02-03] VITALS: Ht 162.6 cm; Wt 65.3 kg
[~2025-02-03 17:10] MED LIST: PANT40TA55 PO
--- NOTE | 2025-02-03 17:42 | EKG ---
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
[2025-02-03 17:52] LABS: IMMATURE GRANULOCYTE ABSOLUTE 0.04 K/uL (0-1); NUCLEATED RED BLOOD CELLS 0.2 % (0.0-0.19); PLATELET COUNT (AUTO) 417 K/uL (130-400); RED BLOOD CELL COUNT(AUTO) 2.85 MIL/uL (4.50-6.20); RED CELL DISTRIBUTION WIDTH 14.0 % (11.0-15.5); WHITE BLOOD COUNT (AUTO) 8.1 K/uL (4.8-10.8)
[2025-02-03 17:59] LABS: CREATININE 1.3 mg/dL (0.5-1.3); GLOMERULAR FILTR. RATE CALC 62.0 mL/min (>90); GLUCOSE,RANDOM 135.0 mg/dL (70-105); SODIUM SERUM 137.0 mmol/L (136-145); UREA NITROGEN, BLOOD 10.0 mg/dL (7-18)
--- NOTE | 2025-02-03 18:00 | ERN ---
ED Note History of Present Illness Stated Complaint: RECTAL BLEED Chief Complaint: Rectal Bleed Time Seen by MD: 17:16 Dictation: 64-year-old male presents to ER complaints of rectal bleeding. Patient states he was discharged 2 days ago from [facility] [place]. Patient states he had had a colonoscopy done due to lower GI bleed. Currently patient complaints of dizziness, weakness and rectal bleeding. Allergies: Coded Allergies: No Known Allergies (Unverified Allergy, Unknown, 01/26/25) Home Meds Active Scripts Pantoprazole Sodium (Protonix) 40 Mg Ectab, 1 TAB PO DAILY for 30 Days, #30 TAB 0 Refills Prov:DESEAN MARCIAL AGACNP 02/02/25 Past Medical History Past Medical History: Other Additional Past Medical Hx: ALCOHOL ABUSE Surgical History: Unknown Review of System Dictation CONSTITUTIONAL: NEGATIVE FOR FEVER,CHILLS + WEAKNESS EYES: NEGATIVE FOR INJURY, PAIN,REDNESS, AND DISCHARGE ENT: NEGATIVE FOR INJURY,PAIN OR SWELLING CARDIOVASCULAR: NEGATIVE FOR CHEST PAIN, PALPITATIONS, AND EDEMA RESPIRATORY: NEGATIVE FOR SHORTNESS OF BREATH, COUGH, WHEEZING, AND PLEURITIC CHEST PAIN ABDOMEN/GI: POSITIVE FOR PAIN AND RECTAL BLEED BACK: NEGATIVE FOR PAIN OR INJURY : NEGATIVE FOR INJURY,_+ RECTAL BLEED MS/EXTREMITY: NEGATIVE FOR INJURY AND DEFORMITY SKIN: + PALE NEURO: NEGATIVE FOR HEADACHE,NUMBNESS, TINGLING, AND SEIZURE PSYCH: NEGATIVE FOR SUICIDE IDEATION, HOMICIDAL IDEATION, AND HALLUCINATIONS ALLERGY/IMMUNOLOGY: NEGATIVE FOR HIVES, RASH, AND ALLERGIES ALL SYSTEMS NEGATIVE, EXCEPT NOTED ABOVE. 13 POINT REVIEW OF SYSTEMS ASSESSED AND ALL NEGATIVE EXCEPT FOR ABOVE. Initial Vital Sign VS Vital Signs Date Time Temp Pulse Resp B/P (MAP) Pulse Ox O2 Delivery O2 Flow Rate FiO2 02/03/25 17:11 98.8 113 18 132/80 100 Room Air 02/03/25 18:58 0 21 Physical Exam Dictation General: Patient appears acutely ill, pale, and diaphoretic. Alert but in moderate distress. Evidence of active gastrointestinal bleeding noted. Vital Signs: Tachycardic. Blood pressure borderline low. Respirations non-labored but rapid. Oxygen saturation stable on room air. (See vitals section.) HEENT: Head atraumatic, normocephalic. Conjunctival pallor present. Oropharynx moist, no active oral bleeding. Cardiovascular: Tachycardic, regular rhythm. No murmurs, rubs, or gallops. Peripheral pulses palpable but weak. Capillary refill delayed. Respiratory: Lungs clear to auscultation bilaterally. No wheezes, rales, or rhonchi. No respiratory distress. Abdomen: Abdomen soft, mildly distended. Diffuse tenderness without rebound or guarding. Bowel sounds present. No palpable masses. Rectal: Gross blood noted on digital rectal exam. Stool appears melena/hematochezia. Active bleeding suspected. Skin: Skin pale, cool, and clammy. No rashes or bruising noted. Neurological: Alert and oriented 3. No focal neurological deficits noted. Psychiatric: Anxious but cooperative. Speech clear and appropriate. Results (Laboratory/Radiology) Laboratory/Radiology Laboratory Tests Test 02/03/25 17:43 02/03/25 19:44 02/03/25 21:21 White Blood Count 8.1 K/uL (4.8-10.8) 14.6 K/uL (4.8-10.8) #H Red Blood Count 2.85 MIL/uL (4.50-6.20) L 2.61 MIL/uL (4.50-6.20) L Hemoglobin 9.0 g/dL (14.0-18.0) L 8.2 g/dL (14.0-18.0) L Hematocrit 26.6 % (42-54) L 24.7 % (42-54) L Mean Corpuscular Volume 93.3 fL (79-99) 94.6 fL (79-99) Mean Corpuscular Hemoglobin 31.6 pg (27.0-33.0) 31.4 pg (27.0-33.0) Mean Corpuscular Hemoglobin Concent 33.8 g/dL (32.0-36.0) 33.2 g/dL (32.0-36.0) Red Cell Distribution Width 14.0 % (11.0-15.5) 14.0 % (11.0-15.5) Platelet Count 417 K/uL (130-400) #H 331 K/uL (130-400) Mean Platelet Volume 9.1 fL (7.5-10.5) 8.9 fL (7.5-10.5) Immature Granulocyte % (Auto) 0.5 % (0-1) Neutrophils (%) (Auto) 60.2 % (40.0-77.0) Lymphocytes (%) (Auto) 31.6 % (21.0-51.0) Monocytes (%) (Auto) 5.8 % (3.0-13.0) Eosinophils (%) (Auto) 1.7 % (0.0-8.0) Basophils (%) (Auto) 0.2 % (0.0-5.0) Neutrophils # (Auto) 4.9 K/uL (1.8-7.7) Lymphocytes # (Auto) 2.6 K/uL (1.0-4.8) Monocytes # (Auto) 0.5 K/uL (0.1-1.0) Eosinophils # (Auto) 0.14 K/uL (0.00-0.70) Basophils # (Auto) 0.02 K/uL (0.00-0.20) Absolute Immature Granulocyte (auto 0.04 K/uL (0-1) Nucleated Red Blood Cells 0.2 % (0.0-0.19) H 0.0 % (0.0-0.19) Sodium Level 137 mmol/L (136-145) Potassium Level 3.8 mmol/L (3.5-5.1) Chloride Level 102 mmol/L (101-111) Carbon Dioxide Level 26 mmol/L (21-32) Blood Urea Nitrogen 10 mg/dL (7-18) Creatinine 1.3 mg/dL (0.5-1.3) Glomerular Filtration Rate Calc 62 mL/min (>90) Random Glucose 135 mg/dL (70-105) H Total Calcium 8.4 mg/dL (8.5-10.1) L Total Creatine Kinase 75 U/L (21-232) # Troponin I High Sensitivity 5 ng/L (4-75) Stool Occult Blood POSITIVE (NEGATIVE) H CT Scan Comment: PATIENT: JOSUÉ LEVIN MR#: [id number] : 1960 SEX: M AGE: 64 LOCATION: ED ORDER 35 STATUS: REG REPORT#: [id number] SERVICE 34 REASON: LOWER GI BLEED ORDERING PHYSICIAN: EDGAR AGUIRRE PROCEDURE: ABD PEL W - CT ABDOMEN/PELVIS W/CONTRAST EXAM: CT Abdomen and Pelvis with IV contrast CLINICAL HISTORY: Patient presents with lower GI bleed. TECHNIQUE: Axial computed tomography images of the abdomen and pelvis with intravenous contrast. CONTRAST: Administered intravenously. COMPARISON: CT abdomen and pelvis on January 26, 2025. FINDINGS: LUNG BASES: The lung bases appear clear. No pleural effusions are seen. LIVER: Stable 1.4 cm hypodense focus in the left lobe of the liver. The remainder of the liver appears unremarkable. GALLBLADDER AND BILE DUCTS: Stable 1.3 cm calculus within the gallbladder lumen. No CT evidence of acute cholecystitis. The bile ducts show no dilatation. PANCREAS: Unremarkable. SPLEEN: Unremarkable. ADRENAL GLANDS: Unremarkable. KIDNEYS, URETERS, AND BLADDER: The kidneys appear within normal limits. There is no hydronephrosis or hydroureter. No urinary calculi are seen. STOMACH AND BOWEL: Stable scattered colonic diverticula without acute diverticulitis. Probable endoscopic bowel clipping with residual mild short-segment concentric wall thickening around the hepatic flexure of the colon and reduced surrounding fat stranding. No evidence of leak or perforation. No evidence of collection. The stomach appears unremarkable. No evidence of bowel obstruction. No evidence suggesting enteritis or colitis. APPENDIX: No evidence of acute appendicitis on CT examination. PERITONEUM: No free fluid. No free air. Small umbilical hernia with herniating fat. LYMPH NODES: No lymphadenopathy is evident. REPRODUCTIVE: Unremarkable as visualized. VASCULATURE: No evidence of abdominal aortic aneurysm. BONES: No aggressive appearing osseous lesion. No acute osseous pathology evident. IMPRESSION: Stable scattered colonic diverticula.` Probable endoscopic bowel clipping with residual mild short-segment concentric wall thickening around the hepatic flexure of the colon and reduced surrounding fat stranding. No evidence of leak, perforation, or collection. Stable 1.[address] evidence of acute cholecystitis. Stable 1.4 cm hypodense focus in the left hepatic lobe. Stable, small umbilical hernia with herniating fat. No acute intra-abdominal or pelvic abnormality otherwise. /[place] DICTATED BY: JOVANA TY Jr., MD DATE: 02/03/252054 ED Course ED Course Orders Procedure Category Date Status Time Cbc With Differential LAB 12/23/25 Complete 17:23 Occult Blood Stool LAB 02/03/25 Complete Single Only 17:23 12 Lead Ekg Tracing- EKG 02/03/25 Complete Technical 17:23 Pantoprazole 40mg Inj PHA 02/03/25 Complete (Protonix 40mg Inj 17:30 Basic Metabolic Panel LAB 02/03/25 Complete 17:23 0.9%Nacl 1000ml (Ns PHA 02/03/25 Complete 1000ml) 17:30 Rbc-Active Bleeding BBK 02/03/25 In Process 17:30 Creatine Kinase, Total LAB 02/03/25 Complete 17:30 Troponin I High LAB 02/03/25 Complete Sensitivity 17:30 Ct Abdomen/Pelvis CT 02/03/25 Resulted W/Contrast 17:35 Ondansetron 4mg Inj PHA 02/03/25 Complete (Zofran 4mg Inj) 18:00 Type And Screen BBK 02/03/25 In Process 17:46 Vital Signs Q1h CPOE 02/03/25 Transmitted 18:03 Iohexol (Omnipaque) PHA 02/03/25 Complete 18:17 Cbc Without LAB 02/03/25 Complete Differential 21:15 Current Medications Medications (Trade) Dose Ordered Sig/Ashley Route PRN Reason Start Time Stop Time Status Last Admin Dose Admin Iohexol (Omnipaque) 75 ml STK-MED ONCE IV 02/03/25 18:17 02/03/25 18:18 DC Ondansetron HCl (zoFRAN 4MG INJ) 4 mg STAT ONCE IVP 02/03/25 18:00 02/03/25 18:01 DC 02/03/25 19:22 Pantoprazole Sodium (PROTonix 40MG INJ) 40 mg ONCE ONCE IVP 02/03/25 17:30 02/03/25 17:31 DC 02/03/25 19:22 Sodium Chloride 1,000 ml @ 0 mls/hr ONCE ONCE IV 02/03/25 17:30 02/03/25 17:31 DC 02/03/25 19:22 Vital Signs Date Time Temp Pulse Resp B/P (MAP) Pulse Ox O2 Delivery O2 Flow Rate FiO2 02/03/25 21:17 78 16 128/73 99 Room Air* 0 21 02/03/25 19:58 98.2 87 18 103/58 98 Room Air* 0 21 02/03/25 18:58 98.1 71 18 119/75 97 Room Air* 0 21 02/03/25 17:11 98.8 113 18 132/80 100 Room Air Medical Decision Making MDM MDM: DIFFERENTIAL DIAGNOSIS: LOWER GI BLEED, MELENA, DIVERTICULOSIS, HEMORRHOIDS RATIONALE: TESTS CONSIDERED AND ORDERED SECONDARY TO SHARED DECISION MAKING INCLUDE: LABS, ECG AND RADIOLOGY PREVIOUS OUTSIDE RECORDS REVIEWED: OLD ER VISITS. RISK OF COMPLICATION AND/OR MORBIDITY OR MORTALITY OF PATIENT MANAGEMENT: NONE MEDICATIONS-PER MEDICATION RECONCILIATION NEED FOR HOSPITALIZATION: PATIENT DOES MEET CRITERIA FOR HOSPITALIZATION. NEED FOR EMERGENCY MAJOR/MINOR SURGERY: NO THERE ARE NO SOCIAL CONCERNS WITH THIS PATIENT. PRESCRIPTION DRUG MANAGEMENT PRESCRIPTIONS WILL INCLUDE SYMPTOMATIC CARE PATIENT'S PRIOR EXTERNAL MEDICAL RECORDS FROM OTHER ER VISITS WERE REVIEWED BY ME INDICATED. PRIOR TESTING AND RESULTS FROM PREVIOUS VISITS WERE REVIEWED. PRIOR TESTS WERE TAKEN INTO ACCOUNT WITH MEDICAL DECISION MAKING AND RESOURCE UTILIZATION, INDEPENDENT HISTORIAN/HISTORIANS WERE USED TO OBTAIN COMPLETE MEDICAL HISTORY. I INDEPENDENTLY INTERPRETED THE TEST THAT WERE PERFORMED, RESULTS WERE REVIEWED BY ME AND CONSIDERED FINDINGS ON RADIOLOGY IF ORDERED. PATIENT ACTIVELY RECTAL BLEEDING WITH CLOTS, WILL STABLIZE AND EVALUATE AND PLAN TO ADMIT PATIENT WILL BE ADMITTED TO HOSPITALIST TEAM. GEORGE NPCCEPTED PATIENT. UNDER DR. KEENAN TEAM. DX & DISP Disposition: Inpatient Departure Impression: Primary Impression: Diverticulitis Additional Impressions: GI bleed, Anemia Condition: Stable Referrals: SELF,REFERRAL (PCP) EDGAR AGUIRRE Feb 03, 2025 18:00
[2025-02-03] MEDS ORDERED: IOHEXOL-350 75 ML VIAL IV ONE (18:17)
--- NOTE | 2025-02-03 18:35 | NUR ---
LAB CALLED AT THIS TIME TO NOTIFY BLOOD IS READY. PT IS CURRENTLY IN CT AT THIS TIME.
[2025-02-03] MEDS: 0.9%NACL 1000ML 1,000 ML IV ONE (19:22)
--- NOTE | 2025-02-03 19:55 | HMCIMG ---
EXAM: CT Abdomen and Pelvis with IV contrast CLINICAL HISTORY: Patient presents with lower GI bleed. TECHNIQUE: Axial computed tomography images of the abdomen and pelvis with intravenous contrast. CONTRAST: Administered intravenously. COMPARISON: CT abdomen and pelvis on January 26, 2025. FINDINGS: LUNG BASES: The lung bases appear clear. No pleural effusions are seen. LIVER: Stable 1.4 cm hypodense focus in the left lobe of the liver. The remainder of the liver appears unremarkable. GALLBLADDER AND BILE DUCTS: Stable 1.3 cm calculus within the gallbladder lumen. No CT evidence of acute cholecystitis. The bile ducts show no dilatation. PANCREAS: Unremarkable. SPLEEN: Unremarkable. ADRENAL GLANDS: Unremarkable. KIDNEYS, URETERS, AND BLADDER: The kidneys appear within normal limits. There is no hydronephrosis or hydroureter. No urinary calculi are seen. STOMACH AND BOWEL: Stable scattered colonic diverticula without acute diverticulitis. Probable endoscopic bowel clipping with residual mild short-segment concentric wall thickening around the hepatic flexure of the colon and reduced surrounding fat stranding. No evidence of leak or perforation. No evidence of collection. The stomach appears unremarkable. No evidence of bowel obstruction. No evidence suggesting enteritis or colitis. APPENDIX: No evidence of acute appendicitis on CT examination. PERITONEUM: No free fluid. No free air. Small umbilical hernia with herniating fat. LYMPH NODES: No lymphadenopathy is evident. REPRODUCTIVE: Unremarkable as visualized. VASCULATURE: No evidence of abdominal aortic aneurysm. BONES: No aggressive appearing osseous lesion. No acute osseous pathology evident. IMPRESSION: Stable scattered colonic diverticula.` Probable endoscopic bowel clipping with residual mild short-segment concentric wall thickening around the hepatic flexure of the colon and reduced surrounding fat stranding. No evidence of leak, perforation, or collection. Stable 1.[address] evidence of acute cholecystitis. Stable 1.4 cm hypodense focus in the left hepatic lobe. Stable, small umbilical hernia with herniating fat. No acute intra-abdominal or pelvic abnormality otherwise. /[place]
[2025-02-03 21:26] LABS: NUCLEATED RED BLOOD CELLS 0.0 % (0.0-0.19); PLATELET COUNT (AUTO) 331.0 K/uL (130-400); RED BLOOD CELL COUNT(AUTO) 2.61 MIL/uL (4.50-6.20); RED CELL DISTRIBUTION WIDTH 14.0 % (11.0-15.5); WHITE BLOOD COUNT (AUTO) 14.6 K/uL (4.8-10.8)
--- NOTE | 2025-02-03 22:08 | HP ---
[facility] HISTORY AND PHYSICAL Date of Service: Feb 03, 2025 Time of Service: 22:08 PCP: Self Referral HISTORY OF PRESENT ILLNESS: This is a 64 year old male with past medical history of alcohol abuse ,GI bleed and gastritis who presents to the ED for complaints of a bloody stool which started yesterday.Patient reports he has 2 episodes of bloody stool yesterday and today and x 1 episode of non bloody vomiting today as well.Patient reports he was admitted for similar complaints on 01/26/2025 for GI bleed and patient underwent an EGD on 01/28/2025 finding was mild gastritis in the stomach.Patient also had a colonoscopy done on 01/29/2025 which showed extensive diverticulosis in the entire colon polyp in the sigmoid colon which was removed with cold biopsy forceps and small nonbleeding hemorrhoid and patient was discharged home on 02/02/2025. Seen and examined patient in the ER awake,alert and coherent.Patient denies fever,chills, chest pain,palpitation,dizziness and shortness of breath. Latest vital signs temperature 98.8, heart rate 80, blood pressure 107/63 saturation 98% on room air. Labs: WBC 14, hemoglobin 8, hematocrit 24, platelet count 331. Glucose 135, total calcium 8.4 troponin five the rest of the chemistries normal. Fecal occult blood positive. CT abdomen and pelvis with contrast result revealed stable scattered colonic diverticula. Probable endoscopic bowel clipping with residual mild short segment concentric wall thickening around the hepatic flexure of the colon induced surrounding fat stranding no evidence of bleeding, perforation or collection. BNP 1 0.[address] evidence of acute cholecystitis. Stable 1.4 cm hypodense focus in the left hepatic lobe. Small umbilical hernia with herniating fat. No acute intra- abdominal or pelvic abnormality otherwise. Patient is pending 1 unit packed RBC transfusion. We will admit patient for further medical management. REVIEW OF SYSTEMS CONSTITUTIONAL: Denies fevers, chills, or night sweats. No unintentional weight loss reported. NEUROLOGICAL: Denies headache, amaurosis fugax, motor weakness, sensory deficit, vertigo/spinning sensation, gait abnormalities, or tremors. ENT: No hearing loss, otalgia, otorrhea, rhinitis, rhinorrhea, hoarseness, or sore throat. CARDIOVASCULAR: Denies any exertional angina, dyspnea on exertion, orthopnea, paroxysmal nocturnal dyspnea, palpitations, life-threatening arrhythmias, claudication. PULMONARY: Denies any shortness of breath, cough, phlegm/sputum, hemoptysis, pleuritic chest pain. SLEEP: Denies morning headaches, daytime somnolence or napping. Denies difficulty falling asleep, staying asleep, waking from sleep. Denies knowledge of snoring. GASTROINTESTINAL: Complained of bloody stool and nonbloody vomiting Denies any type of dysphagia to either liquids or solids. Denies pyrosis, early satiety, abdominal pain, diarrhea, constipation, or changes in stool consistency or caliber. Denies coffee-ground emesis, hematemesis, GENITOURINARY: Denies frequency, urgency, nocturia, hematuria or incontinence (Storage/Irritative symptoms.) Low urinary stream, straining to void, urinary intermittency or hesitancy, splitting of the voiding stream, terminal dribbling. ENDOCRINOLOGIC: Denies polyuria, polydipsia, polyphagia or heat/cold intolerances. HEMATOLOGIC: Denies thrombophilia/previous clots, or coagulopathy/bleeding disorders. ONCOLOGIC: Denies personal history of malignancy. DERMATOLOGIC: Denies rashes or pruritus. PSYCHIATRIC: Denies any suicidal or homicidal ideation. Denies hallucinations. PAST MEDICAL HISTORY: [ alcohol abuse ,GI bleed and gastritis ] PAST SURGICAL HISTORY: [ EGD and colonoscopy] PAST SOCIAL HISTORY: [ Patient admits to drinking one beer per day last consumption two weeks ago. Patient denies cigarette and recreational drug use ] FAMILY HISTORY: [ Noncontributory] Coded Allergies: No Known Allergies (Unverified Allergy, Unknown, 01/26/25) PHYSICAL EXAM GENERAL APPEARANCE: Pale looking The patient is awake, alert, and oriented, in no acute cardiopulmonary distress. NEUROLOGICAL: Cranial nerves II-XII grossly intact. Motor is 5/5 in bilateral upper and lower extremities proximal to distal. No sensory deficits. HEENT: Face is symmetric. Pupils are equal and reactive. Extraocular movements are intact. NECK: Supple. No JVD. No thyromegaly. No submental, submandibular, pre- /postauricular, occipital or supraclavicular lymphadenopathy. CHEST: Normal chest expansion. No Telemetry. LUNGS: Absence of any rales, rhonchi or any wheezing. CARDIOVASCULAR: Regular. S1 and S2 normal. No appreciable rubs, murmurs or gallops. ABDOMEN: Soft, nontender, and nondistended. There is no rebound, voluntary guarding, or rigidity. : Deferred. No Payne. EXTREMITIES: Non-edematous and not cyanotic. No clubbing. Good capillary refill. SKIN: No skin breakdown. Vital Sign (Last 24 Hours) 02/03/25 02/03/25 19:58 21:17 Temp 98.2 Pulse 78 Resp 16 B/P (MAP) 128/73 Pulse Ox 99 O2 Delivery Room Air* O2 Flow Rate 0 FiO2 21 LABS: Laboratory: Test 02/03/25 21:21 02/03/25 19:44 02/03/25 17:43 Range/Units White Blood Count 14.6 #H 4.8-10.8 K/uL Red Blood Count 2.61 L 4.50-6.20 MIL/uL Hemoglobin 8.2 L 14.0-18.0 g/dL Hematocrit 24.7 L 42-54 % Mean Corpuscular Volume 94.6 79-99 fL Mean Corpuscular Hemoglobin 31.4 27.0-33.0 pg Mean Corpuscular Hemoglobin Concent 33.2 32.0-36.0 g/dL Red Cell Distribution Width 14.0 11.0-15.5 % Platelet Count 331 130-400 K/uL Mean Platelet Volume 8.9 7.5-10.5 fL Nucleated Red Blood Cells 0.0 0.0-0.19 % Stool Occult Blood POSITIVE H NEGATIVE Immature Granulocyte % (Auto) 0.5 0-1 % Neutrophils (%) (Auto) 60.2 40.0-77.0 % Lymphocytes (%) (Auto) 31.6 21.0-51.0 % Monocytes (%) (Auto) 5.8 3.0-13.0 % Eosinophils (%) (Auto) 1.7 0.0-8.0 % Basophils (%) (Auto) 0.2 0.0-5.0 % Neutrophils # (Auto) 4.9 1.8-7.7 K/uL Lymphocytes # (Auto) 2.6 1.0-4.8 K/uL Monocytes # (Auto) 0.5 0.1-1.0 K/uL Eosinophils # (Auto) 0.14 0.00-0.70 K/uL Basophils # (Auto) 0.02 0.00-0.20 K/uL Absolute Immature Granulocyte (auto 0.04 0-1 K/uL Sodium Level 137 136-145 mmol/L Potassium Level 3.8 3.5-5.1 mmol/L Chloride Level 102 101-111 mmol/L Carbon Dioxide Level 26 21-32 mmol/L Blood Urea Nitrogen 10 7-18 mg/dL Creatinine 1.3 0.5-1.3 mg/dL Glomerular Filtration Rate Calc 62 >90 mL/min Random Glucose 135 H 70-105 mg/dL Total Calcium 8.4 L 8.5-10.1 mg/dL Total Creatine Kinase 75 # 21-232 U/L Troponin I High Sensitivity 5 4-75 ng/L DIAGNOSTICS / RADIOLOGY: [ ] ASSESSMENT: Acute blood loss anemia POA Acute GI bleed POA Recent EGD and colonoscopy POA History of alcohol abuse POA Cholelithiasis without evidence of acute cholecystitis per CT POA Stable 1.4 cm hypodense focus in the left hepatic lobe per CT POA Stable small umbilical hernia with herniating fat per CT POA PLAN: We will admit patient in medical surgical We will keep nothing by mouth Continue to transfuse 1 unit packed RBC per ER We will start on Protonix drip We will start on LR at 100 mL/hour while NPO We will replace electrolytes as needed per protocol We will add prn medication for fever,pain,cough , nausea and vomiting We will reconcile home meds once medlist available H and H p.r.n. bleeding We will seek gastroenterology consultation We will request labs in am Further orders to follow depending on above results Case discussed with attending physician and came up with above treatment and plan of care. ADVANCED CARE PLANNING 1. Which of the following were discussed? Hospice Care - No Therapeutic options - Yes Advance Directives - No Other discussions - 2. Discussed with who? Patient and Oksana 3. Voluntary nature of this service was explained to the patient? Yes 4. Amount of time spent - __24 min 5. Reviewed by Physician? (if this service was performed by NPP) Yes Patient seen and examined by me. Agree with note by MANAGER ORDER SEE ADDITIONAL ORDERS PER CHART DISCUSSED WITH NURSING STAFF YUE CRONINP Feb 03, 2025 22:08
[2025-02-04] VITALS (8 sets, daily range): BP systolic 99–128; BP diastolic 65–79; PULSE 67–82; RESP 16–20; TEMP 97.8–98.2; O2SAT 98–100
--- NOTE | 2025-02-04 01:17 | NUR ---
REPORT GIVEN TO NURSE MOLINA
[2025-02-04 05:54] LABS: IMMATURE GRANULOCYTE ABSOLUTE 0.05 K/uL (0-1); NUCLEATED RED BLOOD CELLS 0.0 % (0.0-0.19); PLATELET COUNT (AUTO) 326 K/uL (130-400); RED BLOOD CELL COUNT(AUTO) 2.88 MIL/uL (4.50-6.20); RED CELL DISTRIBUTION WIDTH 14.0 % (11.0-15.5); WHITE BLOOD COUNT (AUTO) 7.9 K/uL (4.8-10.8)
[2025-02-04 06:04] LABS: INR 0.97 (0.85-1.15)
[2025-02-04 06:09] LABS: ASPARTATE AMINOTRANSFERASE 20.0 U/L (10-37); CREATININE 1.0 mg/dL (0.5-1.3); GLOMERULAR FILTR. RATE CALC 85.0 mL/min (>90); GLUCOSE,RANDOM 91.0 mg/dL (70-105); SODIUM SERUM 140.0 mmol/L (136-145); TOTAL PROTEIN, SERUM 6.7 g/dL (6.0-8.3); UREA NITROGEN, BLOOD 9.0 mg/dL (7-18)
[2025-02-04] MEDS: LACTATED RINGERS 1000ML 1,000 ML IV SCH (06:09)
--- NOTE | 2025-02-04 10:54 | CONS ---
GASTROENTEROLOGY CONSULTATION NOTE Date of Consultation: Feb 04, 2025 Time of Consultation: 10:49 History of Present Illness: [ 64-year-old male patient with past medical history for alcohol abuse, GI bleed and gastritis, who presented to the emergency room with complaints of bloody stools x1 day. Underwent an EGD on 01/28/2025 with findings for mild gastritis. Patient underwent a colonoscopy on 01/29/2025 which showed extensive diverticulosis in the entire colon and a polyp removed from sigmoid colon. Small nonbleeding hemorrhoids were also noted. We were consult for GI bleed. Patient's WBC today is at 7.9, hemoglobin 9, platelets 326. Significant for calcium of 8.1, alkaline phosphatase 49, albumin 3.0. PT and INR normal. Patient positive FOBT. CT of abdomen and pelvis showing stable scattered colonic diverticula. Probable endoscopic bowel clipping with residual my short segment concentric wall thickening around the hepatic flexure of the colon and reduce surrounding fat stranding. No evidence of leak, perforation, or collection. Stable 1.[address] evidence of acute cholecystitis. Stable 1.4 cm hypodense focus in the left hepatic lobe. Stable small umbilical hernia with herniated fat. No acute intra-abdominal or pelvic abnormality. ] Review of Systems: CONSTITUTIONAL: No malaise or change in sensation of wellbeing. ENMT: No rhinorrhea, otorrhea, sinus pain, ear ache. CARDIOVASCULAR: No angina, palpitations, orthopnea or paroxysmal dyspnea. RESPIRATORY: No SOB. GASTROINTESTINAL: No abdominal pain, nausea, vomiting, diarrhea, hematemesis, melena or change in the patient's habitual bowel movements consistency/number. GENITOURINARY: No dysuria, hematuria or change in bladder continence. MUSCULOSKELETAL: No new muscle pain or decrease in muscular strength. No new joint swelling, redness or tenderness. SKIN: No new rash. Past Medical History: alcohol abuse ,GI bleed and gastritis ] PAST SURGICAL HISTORY: [ EGD and colonoscopy] PAST SOCIAL HISTORY: [ Patient admits to drinking one beer per day last consumption two weeks ago. Patient denies cigarette and recreational drug use ] FAMILY HISTORY: [ Noncontributory Coded Allergies: No Known Allergies (Unverified Allergy, Unknown, 01/26/25) Physical Exam: GEN: Awake, alert, oriented in person, time and place, and in no acute distress. HEENT: No rhinorrhea. Oral pharyngeal mucosa is pink, moist and within normal limits. CHEST: Lung auscultation revealed normal breath sounds bilaterally. CARDIAC:Heart sounds are regular. ABD: Soft, non-tender and not distended. No peritoneal signs on palpation. Normal bowel sounds. Last bm EXT: No cyanosis or clubbing. No edema. SKIN: Intact. No rashes. NEURO: Alert and oriented to name, place and person.No focal motor deficits. Normal speech. Vital Sign (Last 24 Hours) 02/04/25 02/04/25 01:08 08:24 Temp 98.1 Pulse 67 Resp 18 B/P (MAP) 110/70 Pulse Ox 100 O2 Delivery Room Air O2 Flow Rate 0 FiO2 21 Laboratory: [ ] Laboratory: Test 02/04/25 05:43 02/03/25 19:44 02/03/25 17:43 Range/Units White Blood Count 7.9 # 4.8-10.8 K/uL Red Blood Count 2.88 L 4.50-6.20 MIL/uL Hemoglobin 9.0 L 14.0-18.0 g/dL Hematocrit 26.4 L 42-54 % Mean Corpuscular Volume 91.7 79-99 fL Mean Corpuscular Hemoglobin 31.3 27.0-33.0 pg Mean Corpuscular Hemoglobin Concent 34.1 32.0-36.0 g/dL Red Cell Distribution Width 14.0 11.0-15.5 % Platelet Count 326 130-400 K/uL Mean Platelet Volume 9.1 7.5-10.5 fL Immature Granulocyte % (Auto) 0.6 0-1 % Neutrophils (%) (Auto) 71.9 40.0-77.0 % Lymphocytes (%) (Auto) 21.5 21.0-51.0 % Monocytes (%) (Auto) 4.6 3.0-13.0 % Eosinophils (%) (Auto) 1.1 0.0-8.0 % Basophils (%) (Auto) 0.3 0.0-5.0 % Neutrophils # (Auto) 5.6 1.8-7.7 K/uL Lymphocytes # (Auto) 1.7 1.0-4.8 K/uL Monocytes # (Auto) 0.4 0.1-1.0 K/uL Eosinophils # (Auto) 0.09 0.00-0.70 K/uL Basophils # (Auto) 0.02 0.00-0.20 K/uL Absolute Immature Granulocyte (auto 0.05 0-1 K/uL Nucleated Red Blood Cells 0.0 0.0-0.19 % Prothrombin Time 10.3 9.6-11.6 SEC Prothromb Time International Ratio 0.97 0.85-1.15 Activated Partial Thromboplast Time 22.6 L 26.3-35.5 SEC Sodium Level 140 136-145 mmol/L Potassium Level 4.1 3.5-5.1 mmol/L Chloride Level 105 101-111 mmol/L Carbon Dioxide Level 28 21-32 mmol/L Blood Urea Nitrogen 9 7-18 mg/dL Creatinine 1.0 0.5-1.3 mg/dL Glomerular Filtration Rate Calc 85 >90 mL/min Random Glucose 91 70-105 mg/dL Total Calcium 8.1 L 8.5-10.1 mg/dL Magnesium Level 2.20 1.80-2.40 mg/dL Total Bilirubin 0.3 0.2-1.0 mg/dL Aspartate Amino Transf (AST/SGOT) 20 10-37 U/L Alanine Aminotransferase (ALT/SGPT) 26 12-78 U/L Alkaline Phosphatase 49 L 50-136 U/L Total Protein 6.7 6.0-8.3 g/dL Albumin 3.0 L 3.5-5.0 g/dL Stool Occult Blood POSITIVE H NEGATIVE Total Creatine Kinase 75 # 21-232 U/L Troponin I High Sensitivity 5 4-75 ng/L Current Medications Medications (Trade) Dose Ordered Sig/Ashley Route PRN Reason Start Time Stop Time Status Last Admin Dose Admin Lactated Ringer's 1,000 ml @ 100 mls/hr Q10H IV 02/03/25 22:30 03/05/25 22:29 Ondansetron HCl (zoFRAN 4MG INJ) 4 mg Q6H PRN IV NAUSEA/VOMITING 02/03/25 22:30 03/05/25 22:29 Pantoprazole Sodium 80 mg/ Sodium Chloride 100 ml @ 10 mls/hr DAILY IV 02/04/25 09:00 03/06/25 08:59 02/04/25 01:08 10 MLS/HR Diagnostics / Radiology: [COPY/PASTE HERE IF NO REPORTS PLEASE DELETE SECTION] Assessment: [ Concern for GI bleed Anemia Diverticulosis ] Plan: [Case discussed with Dr. Connolly CT Angiogram ordered and recommended. IR consult Trend hemoglobin and transfuse as needed to goal of HGB >7 Please call with questions, concerns, clinical status, and any signs of overt GI bleed ALBA Hunt Feb 04, 2025 10:54
--- NOTE | 2025-02-04 12:45 | NUR ---
[facility] CM MET WITH PT THIS MORNING, INITIAL ASSESSMENT DONE. PATIENT IS INDEPENDENT PRIOR TO ADMISSION, PT AND LIVES W/DAUGHTER AT HOME. DENIES ANY EQUIPMENT/SERVICES. FEELS SAFE TO GO BACK HOME, DAUGHTER ABLE TO ASSIST WITH TRANSPORTATION AND NEEDS NECESSARY. USES [facility] FOR MEDS. PT SELF-PAY, GIVEN [email or web address] INFO. DCP HOME ONCE STABLE. CM TO CONTINUE TO FOLLOW UP. Addendum: 02/04/25 at 1247 by PUMA ANDREWS LVN CM Amended: Links added.
[2025-02-04] MEDS ORDERED: IOHEXOL 350 MG/ML 100ML INFUS..BTL IV ONE (13:49)
--- NOTE | 2025-02-04 15:38 | HMCIMG ---
EXAM: CTA Abdomen and Pelvis with and without Intravenous Contrast. CLINICAL HISTORY: GI BLEED TECHNIQUE: Axial CTA images of the abdomen, pelvis with and without intravenous contrast in the arterial phase with coronal and sagittal reformatted images generated and reviewed. CONTRAST: was injected intravenously without incident. COMPARISON: None provided. FINDINGS: VASCULATURE: Aorta: No acute finding. No abdominal aortic aneurysm. No dissection. Celiac trunk: No acute finding. No occlusion or significant stenosis. Superior mesenteric artery: No acute finding. No occlusion or significant stenosis. Inferior mesenteric artery: No acute finding. No occlusion or significant stenosis. Renal arteries: No acute finding. No occlusion or significant stenosis. Lower thorax: No basilar airspace consolidation. ABDOMEN: Liver: 1.3 cm nonobstructing calcified gallstones. Biliary sludge in the gallbladder. Gallbladder and bile ducts: No calcified stone. No ductal dilation. Pancreas: Unremarkable. No ductal dilation. Spleen: Unremarkable. Adrenals: No mass. Kidneys and ureters: The kidneys enhance symmetrically. No hydronephrosis. No solid mass. Stomach and bowel: Normal appearance of the bowel without pathological dilatation. There is a small blush of contrast noted at the distal rectum, just at the anal verge (series 6, image 149). Appendix: Appendix is seen without focal inflammatory change. PELVIS: Bladder: Unremarkable. Reproductive: Unremarkable as visualized. Peritoneum: No free fluid. No free air. Lymph nodes: No lymphadenopathy is evident. Bones: No acute osseous abnormality. LOWER EXTREMITIES: Soft tissues: The soft tissues are unremarkable. Lymph nodes: No lymphadenopathy is evident. Bones: No acute osseous abnormality. IMPRESSION: There is a small blush of contrast noted at the distal rectum, just at the anal verge (series 6, image 149), which may be the source of the patient's GI bleed. 1.3 cm nonobstructing calcified gallstones. Biliary sludge in the gallbladder. /[place]
--- NOTE | 2025-02-04 17:02 | PN ---
[facility] PROGRESS NOTE Date of Service: Feb 04, 2025 Time of Service: 17:01 SUBJECTIVE: This is a 64 year old male with past medical history of alcohol abuse ,GI bleed and gastritis who presents to the ED for complaints of a bloody stool which started yesterday.Patient reports he has 2 episodes of bloody stool yesterday and today and x 1 episode of non bloody vomiting today as well.Patient reports he was admitted for similar complaints on 01/26/2025 for GI bleed and patient underwent an EGD on 01/28/2025 finding was mild gastritis in the stomach.Patient also had a colonoscopy done on 01/29/2025 which showed extensive diverticulosis in the entire colon polyp in the sigmoid colon which was removed with cold biopsy forceps and small nonbleeding hemorrhoid and patient was discharged home on 02/02/2025. Seen and examined patient in the ER awake,alert and coherent.Patient denies fever,chills, chest pain,palpitation,dizziness and shortness of breath. Latest vital signs temperature 98.8, heart rate 80, blood pressure 107/63 saturation 98% on room air. Labs: WBC 14, hemoglobin 8, hematocrit 24, platelet count 331. Glucose 135, total calcium 8.4 troponin five the rest of the chemistries normal. Fecal occult blood positive. CT abdomen and pelvis with contrast result revealed stable scattered colonic diverticula. Probable endoscopic bowel clipping with residual mild short segment concentric wall thickening around the hepatic flexure of the colon induced surrounding fat stranding no evidence of bleeding, perforation or collection. BNP 1 0.[address] evidence of acute cholecystitis. Stable 1.4 cm hypodense focus in the left hepatic lobe. Small umbilical hernia with herniating fat. No acute intra- abdominal or pelvic abnormality otherwise. Patient is pending 1 unit packed RBC transfusion. We will admit patient for further medical management. 02/04/25: Patient was seen and evaluated bedside in room 428. He was awake, alert, and oriented, lying comfortably in bed with no acute distress. Family members were present during the visit. Patient reports no episodes of bright red blood per rectum since last night. He does note dark red stools in scant amounts during a bowel movement this morning. Gastroenterology has been consulted and initially recommended interventional radiology embolization. However, IR deferred intervention at that time and recommended a CT angiogram to better localize the source of bleeding. The CT angiogram demonstrated a small blush of contrast in the distal rectum near the anal verge, which may represent the source of the patients gastrointestinal bleed. Further recommendations from Gastroenterology are currently pending. Patient remains hemodynamically stable, though blood pressure is soft. Heart rate is in the 70s, patient is afebrile, and oxygen saturation is 95% on room air. REVIEW OF SYSTEMS CONSTITUTIONAL: Denies fevers, chills, or night sweats. No unintentional weight loss reported. NEUROLOGICAL: Denies headache, amaurosis fugax, motor weakness, sensory deficit, vertigo/spinning sensation, gait abnormalities, or tremors. ENT: No hearing loss, otalgia, otorrhea, rhinitis, rhinorrhea, hoarseness, or sore throat. CARDIOVASCULAR: Denies any exertional angina, dyspnea on exertion, orthopnea, paroxysmal nocturnal dyspnea, palpitations, life-threatening arrhythmias, claudication. PULMONARY: Denies any shortness of breath, cough, phlegm/sputum, hemoptysis, pleuritic chest pain. SLEEP: Denies morning headaches, daytime somnolence or napping. Denies difficulty falling asleep, staying asleep, waking from sleep. Denies knowledge of snoring. GASTROINTESTINAL: Complained of bloody stool and nonbloody vomiting Denies any type of dysphagia to either liquids or solids. Denies pyrosis, early satiety, abdominal pain, diarrhea, constipation, or changes in stool consistency or caliber. Denies coffee-ground emesis, hematemesis, GENITOURINARY: Denies frequency, urgency, nocturia, hematuria or incontinence (Storage/Irritative symptoms.) Low urinary stream, straining to void, urinary intermittency or hesitancy, splitting of the voiding stream, terminal dribbling. ENDOCRINOLOGIC: Denies polyuria, polydipsia, polyphagia or heat/cold intolerances. HEMATOLOGIC: Denies thrombophilia/previous clots, or coagulopathy/bleeding di sorders. ONCOLOGIC: Denies personal history of malignancy. DERMATOLOGIC: Denies rashes or pruritus. PSYCHIATRIC: Denies any suicidal or homicidal ideation. Denies hallucinations. PHYSICAL EXAM GENERAL APPEARANCE: Pale looking The patient is awake, alert, and oriented, in no acute cardiopulmonary distress. NEUROLOGICAL: Cranial nerves II-XII grossly intact. Motor is 5/5 in bilateral upper and lower extremities proximal to distal. No sensory deficits. HEENT: Face is symmetric. Pupils are equal and reactive. Extraocular movements are intact. NECK: Supple. No JVD. No thyromegaly. No submental, submandibular, pre- /postauricular, occipital or supraclavicular lymphadenopathy. CHEST: Normal chest expansion. No Telemetry. LUNGS: Absence of any rales, rhonchi or any wheezing. CARDIOVASCULAR: Regular. S1 and S2 normal. No appreciable rubs, murmurs or gallops. ABDOMEN: Soft, nontender, and nondistended. There is no rebound, voluntary guarding, or rigidity. : Deferred. No Payne. EXTREMITIES: Non-edematous and not cyanotic. No clubbing. Good capillary refill. SKIN: No skin breakdown. Vital Signs (last 8hr) Date Time Temp Pulse Resp B/P (MAP) Pulse Ox O2 Delivery O2 Flow Rate FiO2 02/04/25 16:01 98.1 72 18 111/69 95 Room Air 02/04/25 11:46 98.2 70 18 115/65 100 Room Air 02/04/25 11:22 100 Room Air* 0 21 LABS: Laboratory: Test 02/04/25 05:43 02/03/25 19:44 02/03/25 17:43 Range/Units White Blood Count 7.9 # 4.8-10.8 K/uL Red Blood Count 2.88 L 4.50-6.20 MIL/uL Hemoglobin 9.0 L 14.0-18.0 g/dL Hematocrit 26.4 L 42-54 % Mean Corpuscular Volume 91.7 79-99 fL Mean Corpuscular Hemoglobin 31.3 27.0-33.0 pg Mean Corpuscular Hemoglobin Concent 34.1 32.0-36.0 g/dL Red Cell Distribution Width 14.0 11.0-15.5 % Platelet Count 326 130-400 K/uL Mean Platelet Volume 9.1 7.5-10.5 fL Immature Granulocyte % (Auto) 0.6 0-1 % Neutrophils (%) (Auto) 71.9 40.0-77.0 % Lymphocytes (%) (Auto) 21.5 21.0-51.0 % Monocytes (%) (Auto) 4.6 3.0-13.0 % Eosinophils (%) (Auto) 1.1 0.0-8.0 % Basophils (%) (Auto) 0.3 0.0-5.0 % Neutrophils # (Auto) 5.6 1.8-7.7 K/uL Lymphocytes # (Auto) 1.7 1.0-4.8 K/uL Monocytes # (Auto) 0.4 0.1-1.0 K/uL Eosinophils # (Auto) 0.09 0.00-0.70 K/uL Basophils # (Auto) 0.02 0.00-0.20 K/uL Absolute Immature Granulocyte (auto 0.05 0-1 K/uL Nucleated Red Blood Cells 0.0 0.0-0.19 % Prothrombin Time 10.3 9.6-11.6 SEC Prothromb Time International Ratio 0.97 0.85-1.15 Activated Partial Thromboplast Time 22.6 L 26.3-35.5 SEC Sodium Level 140 136-145 mmol/L Potassium Level 4.1 3.5-5.1 mmol/L Chloride Level 105 101-111 mmol/L Carbon Dioxide Level 28 21-32 mmol/L Blood Urea Nitrogen 9 7-18 mg/dL Creatinine 1.0 0.5-1.3 mg/dL Glomerular Filtration Rate Calc 85 >90 mL/min Random Glucose 91 70-105 mg/dL Total Calcium 8.1 L 8.5-10.1 mg/dL Magnesium Level 2.20 1.80-2.40 mg/dL Total Bilirubin 0.3 0.2-1.0 mg/dL Aspartate Amino Transf (AST/SGOT) 20 10-37 U/L Alanine Aminotransferase (ALT/SGPT) 26 12-78 U/L Alkaline Phosphatase 49 L 50-136 U/L Total Protein 6.7 6.0-8.3 g/dL Albumin 3.0 L 3.5-5.0 g/dL Stool Occult Blood POSITIVE H NEGATIVE Total Creatine Kinase 75 # 21-232 U/L Troponin I High Sensitivity 5 4-75 ng/L Current Medications Medications (Trade) Dose Ordered Sig/Ashley Route PRN Reason Start Time Stop Time Status Last Admin Dose Admin Lactated Ringer's 1,000 ml @ 100 mls/hr Q10H IV 02/03/25 22:30 03/05/25 22:29 Ondansetron HCl (zoFRAN 4MG INJ) 4 mg Q6H PRN IV NAUSEA/VOMITING 02/03/25 22:30 03/05/25 22:29 Pantoprazole Sodium 80 mg/ Sodium Chloride 100 ml @ 10 mls/hr DAILY IV 02/04/25 09:00 03/06/25 08:59 02/04/25 01:08 10 MLS/HR DIAGNOSTICS / RADIOLOGY: [facility] [address] [place] [address] IMAGING REPORT Signed PATIENT: JOSUÉ LEVIN MR#: [id number] : 1960 SEX: M AGE: 64 LOCATION: [facility] ORDER 35 STATUS: REG REPORT#: [id number] SERVICE 34 REASON: LOWER GI BLEED ORDERING PHYSICIAN: EDGAR AGUIRRE PROCEDURE: ABD PEL W - CT ABDOMEN/PELVIS W/CONTRAST EXAM: CT Abdomen and Pelvis with IV contrast CLINICAL HISTORY: Patient presents with lower GI bleed. TECHNIQUE: Axial computed tomography images of the abdomen and pelvis with intravenous contrast. CONTRAST: Administered intravenously. COMPARISON: CT abdomen and pelvis on January 26, 2025. FINDINGS: LUNG BASES: The lung bases appear clear. No pleural effusions are seen. LIVER: Stable 1.4 cm hypodense focus in the left lobe of the liver. The remainder of the liver appears unremarkable. GALLBLADDER AND BILE DUCTS: Stable 1.3 cm calculus within the gallbladder lumen. No CT evidence of acute cholecystitis. The bile ducts show no dilatation. PANCREAS: Unremarkable. SPLEEN: Unremarkable. ADRENAL GLANDS: Unremarkable. KIDNEYS, URETERS, AND BLADDER: The kidneys appear within normal limits. There is no hydronephrosis or hydroureter. No urinary calculi are seen. STOMACH AND BOWEL: Stable scattered colonic diverticula without acute diverticulitis. Probable endoscopic bowel clipping with residual mild short-segment concentric wall thickening around the hepatic flexure of the colon and reduced surrounding fat stranding. No evidence of leak or perforation. No evidence of collection. The stomach appears unremarkable. No evidence of bowel obstruction. No evidence suggesting enteritis or colitis. APPENDIX: No evidence of acute appendicitis on CT examination. PERITONEUM: No free fluid. No free air. Small umbilical hernia with herniating fat. LYMPH NODES: No lymphadenopathy is evident. REPRODUCTIVE: Unremarkable as visualized. VASCULATURE: No evidence of abdominal aortic aneurysm. BONES: No aggressive appearing osseous lesion. No acute osseous pathology evident. IMPRESSION: Stable scattered colonic diverticula.` Probable endoscopic bowel clipping with residual mild short-segment concentric wall thickening around the hepatic flexure of the colon and reduced surrounding fat stranding. No evidence of leak, perforation, or collection. Stable 1.[address] evidence of acute cholecystitis. Stable 1.4 cm hypodense focus in the left hepatic lobe. Stable, small umbilical hernia with herniating fat. No acute intra-abdominal or pelvic abnormality otherwise. /[place] DICTATED BY: JOVANA TY Jr., MD DATE: 02/03/252054 ELECTRONICALLY SIGNED BY: JOVANA TY Jr., MD DATE: 02/03/252054 [place] [address] IMAGING REPORT Signed PATIENT: JOSUÉ LEVIN MR#: [id number] : 1960 SEX: M AGE: 64 LOCATION: [facility] ORDER 1020 STATUS: ADM IN REPORT#: [id number] SERVICE 1013 REASON: GI BLEED ORDERING PHYSICIAN: BRADEN GARG MD PROCEDURE: [id number] - CT ANGIO ABDOMEN PELVIS EXAM: CTA Abdomen and Pelvis with and without Intravenous Contrast. CLINICAL HISTORY: GI BLEED TECHNIQUE: Axial CTA images of the abdomen, pelvis with and without intravenous contrast in the arterial phase with coronal and sagittal reformatted images generated and reviewed. CONTRAST: was injected intravenously without incident. COMPARISON: None provided. FINDINGS: VASCULATURE: Aorta: No acute finding. No abdominal aortic aneurysm. No dissection. Celiac trunk: No acute finding. No occlusion or significant stenosis. Superior mesenteric artery: No acute finding. No occlusion or significant stenosis. Inferior mesenteric artery: No acute finding. No occlusion or significant stenosis. Renal arteries: No acute finding. No occlusion or significant stenosis. Lower thorax: No basilar airspace consolidation. ABDOMEN: Liver: 1.3 cm nonobstructing calcified gallstones. Biliary sludge in the gallbladder. Gallbladder and bile ducts: No calcified stone. No ductal dilation. Pancreas: Unremarkable. No ductal dilation. Spleen: Unremarkable. Adrenals: No mass. Kidneys and ureters: The kidneys enhance symmetrically. No hydronephrosis. No solid mass. Stomach and bowel: Normal appearance of the bowel without pathological dilatation. There is a small blush of contrast noted at the distal rectum, just at the anal verge (series 6, image 149). Appendix: Appendix is seen without focal inflammatory change. PELVIS: Bladder: Unremarkable. Reproductive: Unremarkable as visualized. Peritoneum: No free fluid. No free air. Lymph nodes: No lymphadenopathy is evident. Bones: No acute osseous abnormality. LOWER EXTREMITIES: Soft tissues: The soft tissues are unremarkable. Lymph nodes: No lymphadenopathy is evident. Bones: No acute osseous abnormality. IMPRESSION: There is a small blush of contrast noted at the distal rectum, just at the anal verge (series 6, image 149), which may be the source of the patient's GI bleed. 1.3 cm nonobstructing calcified gallstones. Biliary sludge in the gallbladder. /[place] DICTATED BY: TOMMIE ESTEVEZ DO DATE: 02/04/251636 ELECTRONICALLY SIGNED BY: TOMMIE ESTEVEZ DO DATE: 02/04/251636 ASSESSMENT: Acute blood loss anemia POA Acute GI bleed POA Recent EGD and colonoscopy POA History of alcohol abuse POA Cholelithiasis without evidence of acute cholecystitis per CT POA Stable 1.4 cm hypodense focus in the left hepatic lobe per CT POA Stable small umbilical hernia with herniating fat per CT POA PLAN: Gastrointestinal hemorrhage, POA: * Patient presented with 2 episodes of bloody stools since his discharge last time. * Patient's hemoglobin has been stable at 9 * Received 1 unit of PRBC so far. * Gastroenterology recommended IR embolization, however IR recommended CT angio before embolization. * CT angio performed on 02/04/2025 demonstrated small blush of contrast at the distal rectum just at the anal verge. * Further recommendations from Gastroenterology pending. * Transfuse blood if HGB less than 7. * Continue to monitor with serial labs and follow gastroenterology recommendations for now. DVT prophylaxis with SCDs. GI prophylaxis with Protonix 40 mg IV OD. ATTESTATION BY PHYSICIAN I have seen and examined the patient. I reviewed the documentation, medical decision making, and treatment plan as noted by the resident physician above. I agree with the findings and plan of care. ESVIN FISHMAN MD, HEMA MD Feb 04, 2025 17:02
[2025-02-05] VITALS (7 sets, daily range): BP systolic 108–127; BP diastolic 65–74; PULSE 65–75; RESP 16–18; TEMP 97.8–98.2; O2SAT 98–99
[2025-02-05 04:24] LABS: IMMATURE GRANULOCYTE ABSOLUTE 0.03 K/uL (0-1); NUCLEATED RED BLOOD CELLS 0.0 % (0.0-0.19); PLATELET COUNT (AUTO) 362 K/uL (130-400); RED BLOOD CELL COUNT(AUTO) 2.87 MIL/uL (4.50-6.20); RED CELL DISTRIBUTION WIDTH 13.5 % (11.0-15.5); WHITE BLOOD COUNT (AUTO) 7.5 K/uL (4.8-10.8)
[2025-02-05 04:32] LABS: ASPARTATE AMINOTRANSFERASE 22.0 U/L (10-37); CREATININE 1.0 mg/dL (0.5-1.3); GLOMERULAR FILTR. RATE CALC 85.0 mL/min (>90); GLUCOSE,RANDOM 84.0 mg/dL (70-105); SODIUM SERUM 136.0 mmol/L (136-145); TOTAL PROTEIN, SERUM 7.2 g/dL (6.0-8.3); UREA NITROGEN, BLOOD 13.0 mg/dL (7-18)
[2025-02-05] MEDS ORDERED: COMPOUND IV REFRIGERATED 1 EACH IVSOLN MISC PRN (07:30)
[2025-02-05 10:17] LABS: % IRON SATURATION 7.9 % (30-44); IRON, SERUM 32.0 mcg/dL (65-175)
--- NOTE | 2025-02-05 16:10 | PN ---
[facility] PROGRESS NOTE Date of Service: Feb 05, 2025 Time of Service: 16:02 SUBJECTIVE: This is a 64 year old male with past medical history of alcohol abuse ,GI bleed and gastritis who presents to the ED for complaints of a bloody stool which started yesterday.Patient reports he has 2 episodes of bloody stool yesterday and today and x 1 episode of non bloody vomiting today as well.Patient reports he was admitted for similar complaints on 01/26/2025 for GI bleed and patient underwent an EGD on 01/28/2025 finding was mild gastritis in the stomach.Patient also had a colonoscopy done on 01/29/2025 which showed extensive diverticulosis in the entire colon polyp in the sigmoid colon which was removed with cold biopsy forceps and small nonbleeding hemorrhoid and patient was discharged home on 02/02/2025. Seen and examined patient in the ER awake,alert and coherent.Patient denies fever,chills, chest pain,palpitation,dizziness and shortness of breath. Latest vital signs temperature 98.8, heart rate 80, blood pressure 107/63 saturation 98% on room air. Labs: WBC 14, hemoglobin 8, hematocrit 24, platelet count 331. Glucose 135, total calcium 8.4 troponin five the rest of the chemistries normal. Fecal occult blood positive. CT abdomen and pelvis with contrast result revealed stable scattered colonic diverticula. Probable endoscopic bowel clipping with residual mild short segment concentric wall thickening around the hepatic flexure of the colon induced surrounding fat stranding no evidence of bleeding, perforation or collection. BNP 1 0.[address] evidence of acute cholecystitis. Stable 1.4 cm hypodense focus in the left hepatic lobe. Small umbilical hernia with herniating fat. No acute intra- abdominal or pelvic abnormality otherwise. Patient is pending 1 unit packed RBC transfusion. We will admit patient for further medical management. 02/04/25: Patient was seen and evaluated bedside in room 428. He was awake, alert, and oriented, lying comfortably in bed with no acute distress. Family members were present during the visit. Patient reports no episodes of bright red blood per rectum since last night. He does note dark red stools in scant amounts during a bowel movement this morning. Gastroenterology has been consulted and initially recommended interventional radiology embolization. However, IR deferred intervention at that time and recommended a CT angiogram to better localize the source of bleeding. The CT angiogram demonstrated a small blush of contrast in the distal rectum near the anal verge, which may represent the source of the patients gastrointestinal bleed. Further recommendations from Gastroenterology are currently pending. Patient remains hemodynamically stable, though blood pressure is soft. Heart rate is in the 70s, patient is afebrile, and oxygen saturation is 95% on room air. 02/05/2025: Patient was seen and evaluated bedside in room 428. He was awake, alert, and oriented during the visit. He denied any significant pain. Patient reports that he continues to have bloody stools, with the last episode occurring yesterday evening around 6:00 p.m., described as andres blood. Hemoglobin has remained stable since admission. An anemia panel was obtained today which demonstrates a pattern of consistent with blood loss. Patient was also found to have vitamin B12 and iron deficiency, on supplementation has been initiated with IV Venofer and vitamin B12 1000 mcg daily. We are currently awaiting final recommendations from Gastroenterology regarding further management of his lower GI bleeding. Patient remains hemodynamically stable, with systolic blood pressure in the 110s and heart rate in the 70s. REVIEW OF SYSTEMS CONSTITUTIONAL: Denies fevers, chills, or night sweats. No unintentional weight loss reported. NEUROLOGICAL: Denies headache, amaurosis fugax, motor weakness, sensory deficit, vertigo/spinning sensation, gait abnormalities, or tremors. ENT: No hearing loss, otalgia, otorrhea, rhinitis, rhinorrhea, hoarseness, or sore throat. CARDIOVASCULAR: Denies any exertional angina, dyspnea on exertion, orthopnea, paroxysmal nocturnal dyspnea, palpitations, life-threatening arrhythmias, claudication. PULMONARY: Denies any shortness of breath, cough, phlegm/sputum, hemoptysis, pleuritic chest pain. SLEEP: Denies morning headaches, daytime somnolence or napping. Denies difficulty falling asleep, staying asleep, waking from sleep. Denies knowledge of snoring. GASTROINTESTINAL: Complained of bloody stool and nonbloody vomiting Denies any type of dysphagia to either liquids or solids. Denies pyrosis, early satiety, abdominal pain, diarrhea, constipation, or changes in stool consistency or caliber. Denies coffee-ground emesis, hematemesis, GENITOURINARY: Denies frequency, urgency, nocturia, hematuria or incontinence (Storage/Irritative symptoms.) Low urinary stream, straining to void, urinary intermittency or hesitancy, splitting of the voiding stream, terminal dribbling. ENDOCRINOLOGIC: Denies polyuria, polydipsia, polyphagia or heat/cold intolerances. HEMATOLOGIC: Denies thrombophilia/previous clots, or coagulopathy/bleeding disorders. ONCOLOGIC: Denies personal history of malignancy. DERMATOLOGIC: Denies rashes or pruritus. PSYCHIATRIC: Denies any suicidal or homicidal ideation. Denies hallucinations. PHYSICAL EXAM GENERAL APPEARANCE: Pale looking The patient is awake, alert, and oriented, in no acute cardiopulmonary distress. NEUROLOGICAL: Cranial nerves II-XII grossly intact. Motor is 5/5 in bilateral upper and lower extremities proximal to distal. No sensory deficits. HEENT: Face is symmetric. Pupils are equal and reactive. Extraocular movements are intact. NECK: Supple. No JVD. No thyromegaly. No submental, submandibular, pre- /postauricular, occipital or supraclavicular lymphadenopathy. CHEST: Normal chest expansion. No Telemetry. LUNGS: Absence of any rales, rhonchi or any wheezing. CARDIOVASCULAR: Regular. S1 and S2 normal. No appreciable rubs, murmurs or gallops. ABDOMEN: Soft, nontender, and nondistended. There is no rebound, voluntary guarding, or rigidity. : Deferred. No Payne. EXTREMITIES: Non-edematous and not cyanotic. No clubbing. Good capillary refill. SKIN: No skin breakdown. Vital Signs (last 8hr) Date Time Temp Pulse Resp B/P (MAP) Pulse Ox O2 Delivery O2 Flow Rate FiO2 02/05/25 12:00 97.9 71 16 120/71 99 Room Air 21 LABS: Laboratory: Test 02/05/25 13:49 02/05/25 09:40 02/05/25 03:41 02/04/25 05:43 Range/Units Hemoglobin 8.8 L 14.0-18.0 g/dL Hematocrit 26.4 L 42-54 % Reticulocyte Count (auto) 5.05748 H 0.42-2.23 % Immature Reticulocyte Fraction 31.10 H 0.18-0.48 % Iron Level 32 L 65-175 mcg/dL Total Iron Binding Capacity 405 250-450 mcg/dL Percent Iron Saturation 7.9 L 30-44 % Ferritin 48 30-400 ng/mL Vitamin B12 Level 157 L 193-986 pg/mL White Blood Count 7.5 4.8-10.8 K/uL Red Blood Count 2.87 L 4.50-6.20 MIL/uL Mean Corpuscular Volume 93.7 79-99 fL Mean Corpuscular Hemoglobin 30.7 27.0-33.0 pg Mean Corpuscular Hemoglobin Concent 32.7 32.0-36.0 g/dL Red Cell Distribution Width 13.5 11.0-15.5 % Platelet Count 362 130-400 K/uL Mean Platelet Volume 9.3 7.5-10.5 fL Immature Granulocyte % (Auto) 0.4 0-1 % Neutrophils (%) (Auto) 73.7 40.0-77.0 % Lymphocytes (%) (Auto) 16.8 L 21.0-51.0 % Monocytes (%) (Auto) 7.7 3.0-13.0 % Eosinophils (%) (Auto) 1.1 0.0-8.0 % Basophils (%) (Auto) 0.3 0.0-5.0 % Neutrophils # (Auto) 5.5 1.8-7.7 K/uL Lymphocytes # (Auto) 1.3 1.0-4.8 K/uL Monocytes # (Auto) 0.6 0.1-1.0 K/uL Eosinophils # (Auto) 0.08 0.00-0.70 K/uL Basophils # (Auto) 0.02 0.00-0.20 K/uL Absolute Immature Granulocyte (auto 0.03 0-1 K/uL Nucleated Red Blood Cells 0.0 0.0-0.19 % Sodium Level 136 136-145 mmol/L Potassium Level 3.9 3.5-5.1 mmol/L Chloride Level 102 101-111 mmol/L Carbon Dioxide Level 28 21-32 mmol/L Blood Urea Nitrogen 13 7-18 mg/dL Creatinine 1.0 0.5-1.3 mg/dL Glomerular Filtration Rate Calc 85 >90 mL/min Random Glucose 84 70-105 mg/dL Total Calcium 8.4 L 8.5-10.1 mg/dL Total Bilirubin 0.5 # 0.2-1.0 mg/dL Aspartate Amino Transf (AST/SGOT) 22 10-37 U/L Alanine Aminotransferase (ALT/SGPT) 25 12-78 U/L Alkaline Phosphatase 54 50-136 U/L Total Protein 7.2 6.0-8.3 g/dL Albumin 3.1 L 3.5-5.0 g/dL Prothrombin Time 10.3 9.6-11.6 SEC Prothromb Time International Ratio 0.97 0.85-1.15 Activated Partial Thromboplast Time 22.6 L 26.3-35.5 SEC Magnesium Level 2.20 1.80-2.40 mg/dL Test 02/03/25 19:44 02/03/25 17:43 Range/Units Stool Occult Blood POSITIVE H NEGATIVE Total Creatine Kinase 75 # 21-232 U/L Troponin I High Sensitivity 5 4-75 ng/L Current Medications Medications (Trade) Dose Ordered Sig/Ashley Route PRN Reason Start Time Stop Time Status Last Admin Dose Admin Lactated Ringer's 1,000 ml @ 100 mls/hr Q10H IV 02/03/25 22:30 03/05/25 22:29 Ondansetron HCl (zoFRAN 4MG INJ) 4 mg Q6H PRN IV NAUSEA/VOMITING 02/03/25 22:30 03/05/25 22:29 Pantoprazole Sodium 80 mg/ Sodium Chloride 100 ml @ 10 mls/hr DAILY IV 02/04/25 09:00 03/06/25 08:59 02/05/25 12:10 10 [facility] / RADIOLOGY: [place] [address] IMAGING REPORT Signed PATIENT: JOSUÉ LEVIN MR#: [id number] : 1960 SEX: M AGE: 64 LOCATION: 4DH ORDER 1020 STATUS: ADM IN REPORT#: [id number] SERVICE 1013 REASON: GI BLEED ORDERING PHYSICIAN: BRADEN GARG MD PROCEDURE: CTAABPLWWO - CT ANGIO ABDOMEN PELVIS EXAM: CTA Abdomen and Pelvis with and without Intravenous Contrast. CLINICAL HISTORY: GI BLEED TECHNIQUE: Axial CTA images of the abdomen, pelvis with and without intravenous contrast in the arterial phase with coronal and sagittal reformatted images generated and reviewed. CONTRAST: was injected intravenously without incident. COMPARISON: None provided. FINDINGS: VASCULATURE: Aorta: No acute finding. No abdominal aortic aneurysm. No dissection. Celiac trunk: No acute finding. No occlusion or significant stenosis. Superior mesenteric artery: No acute finding. No occlusion or significant stenosis. Inferior mesenteric artery: No acute finding. No occlusion or significant stenosis. Renal arteries: No acute finding. No occlusion or significant stenosis. Lower thorax: No basilar airspace consolidation. ABDOMEN: Liver: 1.3 cm nonobstructing calcified gallstones. Biliary sludge in the gallbladder. Gallbladder and bile ducts: No calcified stone. No ductal dilation. Pancreas: Unremarkable. No ductal dilation. Spleen: Unremarkable. Adrenals: No mass. Kidneys and ureters: The kidneys enhance symmetrically. No hydronephrosis. No solid mass. Stomach and bowel: Normal appearance of the bowel without pathological dilatation. There is a small blush of contrast noted at the distal rectum, just at the anal verge (series 6, image 149). Appendix: Appendix is seen without focal inflammatory change. PELVIS: Bladder: Unremarkable. Reproductive: Unremarkable as visualized. Peritoneum: No free fluid. No free air. Lymph nodes: No lymphadenopathy is evident. Bones: No acute osseous abnormality. LOWER EXTREMITIES: Soft tissues: The soft tissues are unremarkable. Lymph nodes: No lymphadenopathy is evident. Bones: No acute osseous abnormality. IMPRESSION: There is a small blush of contrast noted at the distal rectum, just at the anal verge (series 6, image 149), which may be the source of the patient's GI bleed. 1.3 cm nonobstructing calcified gallstones. Biliary sludge in the gallbladder. /[place] DICTATED BY: TOMMIE ESTEVEZ DO DATE: 02/04/251636 ELECTRONICALLY SIGNED BY: TOMMIE ESTEVEZ DO DATE: 02/04/251636 ASSESSMENT: Acute blood loss anemia POA Acute GI bleed POA Recent EGD and colonoscopy POA VITAMIN B12 DEFICIENCY, POA Iron-deficiency anemia, POA History of alcohol abuse POA Cholelithiasis without evidence of acute cholecystitis per CT POA Stable 1.4 cm hypodense focus in the left hepatic lobe per CT POA Stable small umbilical hernia with herniating fat per CT POA PLAN: Gastrointestinal hemorrhage, POA: * Patient presented with 2 episodes of bloody stools since his discharge last time. * Patient's hemoglobin has been stable at 9 * Received 1 unit of PRBC so far. * Gastroenterology recommended IR embolization, however IR recommended CT angio before embolization. * CT angio performed on 02/04/2025 demonstrated small blush of contrast at the distal rectum just at the anal verge. * Further recommendations from Gastroenterology pending. * Transfuse blood if HGB less than 7. * Continue to monitor with serial labs and follow gastroenterology recommendations for now. Anemia, POA: * Patient's hemoglobin on admission was 9 and has remained stable with today's hemoglobin at 8.6. * Anemia panel revealed a vitamin B12 level of 157, and iron-deficiency with a transferrin saturation of 7.9. * We will start the patient on IV Venofer, and 1000 mcg vitamin B12 daily. * Continue to monitor hemoglobin with serial labs. DVT prophylaxis with SCDs. GI prophylaxis with Protonix 40 mg IV OD. ATTESTATION BY PHYSICIAN I have seen and examined the patient. I reviewed the documentation, medical decision making, and treatment plan as noted by the resident physician above. I agree with the findings and plan of care. ESVIN FISHMAN MD, HEMA MD Feb 05, 2025 16:10
[2025-02-05] MEDS: CYANOCOBALAMIN (VITAMIN B-12) 1,000 MCG TABLET PO SCH (16:16)
[2025-02-05] MEDS ORDERED: COMPOUND IV MISC 1 EACH IVSOLN MISC PRN (16:30)
[2025-02-06 03:37] VITALS: BP 112/65; PULSE 67; RESP 18; TEMP 97.8
[2025-02-06 03:54] LABS: IMMATURE GRANULOCYTE ABSOLUTE 0.02 K/uL (0-1); NUCLEATED RED BLOOD CELLS 0.0 % (0.0-0.19); PLATELET COUNT (AUTO) 372 K/uL (130-400); RED BLOOD CELL COUNT(AUTO) 2.79 MIL/uL (4.50-6.20); RED CELL DISTRIBUTION WIDTH 13.2 % (11.0-15.5); WHITE BLOOD COUNT (AUTO) 7.0 K/uL (4.8-10.8)
[2025-02-06 04:18] LABS: ASPARTATE AMINOTRANSFERASE 21.0 U/L (10-37); CREATININE 1.1 mg/dL (0.5-1.3); GLOMERULAR FILTR. RATE CALC 75.0 mL/min (>90); GLUCOSE,RANDOM 96.0 mg/dL (70-105); SODIUM SERUM 136.0 mmol/L (136-145); TOTAL PROTEIN, SERUM 7.1 g/dL (6.0-8.3); UREA NITROGEN, BLOOD 9.0 mg/dL (7-18)
[2025-02-06 08:00] VITALS: BP 115/71; PULSE 70; RESP 18; TEMP 98.1
[2025-02-06 12:11] VITALS: BP 117/73; PULSE 78; RESP 18; TEMP 98.2
[2025-02-06 16:00] VITALS: BP 108/74; PULSE 86; RESP 18; TEMP 98
[2025-02-06] MEDS ORDERED: CYAN-52 PO (16:18)
[2025-02-06] MEDS ORDERED: PANT40TA54 PO (16:20)
[2025-02-06] MEDS ORDERED: FERR-82 PO (16:21)
[2025-02-06] MEDS ORDERED: PSYL0.4C2 PO (16:21)
--- NOTE | 2025-02-06 16:24 | DS ---
Discharge Summary Hospital Course Summary: The patient presented with recurrent episodes of bloody stools shortly after a recent hospitalization for gastrointestinal bleeding. He had undergone an EGD showing mild gastritis and a colonoscopy demonstrating extensive diverticulosis with a sigmoid polyp removed and non-bleeding hemorrhoids. During this admission, hemoglobin was low but remained stable after transfusion of one unit of packed red blood cells. CT angiography demonstrated a small contrast blush in the distal rectum near the anal verge, suspected to be the bleeding source. Interventional Radiology deferred embolization, and Gastroenterology recommended conservative management given hemodynamic stability. The patient was treated with IV iron (Venofer) and vitamin B12 supplementation. No further episodes of overt bleeding were noted prior to discharge. He remained hemodynamically stable and was felt appropriate for discharge with close outpatient follow-up. C D Reactor Operator(s): Assessment: [ Concern for GI bleed Anemia Diverticulosis ] Plan: [Case discussed with Dr. Connolly CT Angiogram ordered and recommended. IR consult Trend hemoglobin and transfuse as needed to goal of HGB >7 Please call with questions, concerns, clinical status, and any signs of overt GI bleed Brinda's Procedure(s): [place] [address] [address] IMAGING REPORT Signed PATIENT: JOSUÉ LEVIN MR#: [id number] : 1960 SEX: M AGE: 64 LOCATION: [facility] ORDER 35 STATUS: [facility] REPORT#: [id number] SERVICE 34 REASON: LOWER GI BLEED ORDERING PHYSICIAN: EDGAR AGUIRRE PROCEDURE: ABD PEL W - CT ABDOMEN/PELVIS W/CONTRAST EXAM: CT Abdomen and Pelvis with IV contrast CLINICAL HISTORY: Patient presents with lower GI bleed. TECHNIQUE: Axial computed tomography images of the abdomen and pelvis with intravenous contrast. CONTRAST: Administered intravenously. COMPARISON: CT abdomen and pelvis on January 26, 2025. FINDINGS: LUNG BASES: The lung bases appear clear. No pleural effusions are seen. LIVER: Stable 1.4 cm hypodense focus in the left lobe of the liver. The remainder of the liver appears unremarkable. GALLBLADDER AND BILE DUCTS: Stable 1.3 cm calculus within the gallbladder lumen. No CT evidence of acute cholecystitis. The bile ducts show no dilatation. PANCREAS: Unremarkable. SPLEEN: Unremarkable. ADRENAL GLANDS: Unremarkable. KIDNEYS, URETERS, AND BLADDER: The kidneys appear within normal limits. There is no hydronephrosis or hydroureter. No urinary calculi are seen. STOMACH AND BOWEL: Stable scattered colonic diverticula without acute diverticulitis. Probable endoscopic bowel clipping with residual mild short-segment concentric wall thickening around the hepatic flexure of the colon and reduced surrounding fat stranding. No evidence of leak or perforation. No evidence of collection. The stomach appears unremarkable. No evidence of bowel obstruction. No evidence suggesting enteritis or colitis. APPENDIX: No evidence of acute appendicitis on CT examination. PERITONEUM: No free fluid. No free air. Small umbilical hernia with herniating fat. LYMPH NODES: No lymphadenopathy is evident. REPRODUCTIVE: Unremarkable as visualized. VASCULATURE: No evidence of abdominal aortic aneurysm. BONES: No aggressive appearing osseous lesion. No acute osseous pathology evident. IMPRESSION: Stable scattered colonic diverticula.` Probable endoscopic bowel clipping with residual mild short-segment concentric wall thickening around the hepatic flexure of the colon and reduced surrounding fat stranding. No evidence of leak, perforation, or collection. Stable 1.[address] evidence of acute cholecystitis. Stable 1.4 cm hypodense focus in the left hepatic lobe. Stable, small umbilical hernia with herniating fat. No acute intra-abdominal or pelvic abnormality otherwise. /[place] DICTATED BY: JOVANA TY Jr., MD DATE: 02/03/252054 ELECTRONICALLY SIGNED BY: JOVANA TY Jr., MD DATE: 02/03/252054 [place] [id number] IMAGING REPORT Signed PATIENT: JOSUÉ LEVIN MR#: [id number] : 1960 SEX: M AGE: 64 LOCATION: 4DH ORDER 1020 STATUS: ADM IN REPORT#: [id number] SERVICE 1013 REASON: GI BLEED ORDERING PHYSICIAN: BRADEN CONNOLLY MD PROCEDURE: CTAABPLWWO - CT ANGIO ABDOMEN PELVIS EXAM: CTA Abdomen and Pelvis with and without Intravenous Contrast. CLINICAL HISTORY: GI BLEED TECHNIQUE: Axial CTA images of the abdomen, pelvis with and without intravenous contrast in the arterial phase with coronal and sagittal reformatted images generated and reviewed. CONTRAST: was injected intravenously without incident. COMPARISON: None provided. FINDINGS: VASCULATURE: Aorta: No acute finding. No abdominal aortic aneurysm. No dissection. Celiac trunk: No acute finding. No occlusion or significant stenosis. Superior mesenteric artery: No acute finding. No occlusion or significant stenosis. Inferior mesenteric artery: No acute finding. No occlusion or significant stenosis. Renal arteries: No acute finding. No occlusion or significant stenosis. Lower thorax: No basilar airspace consolidation. ABDOMEN: Liver: 1.3 cm nonobstructing calcified gallstones. Biliary sludge in the gallbladder. Gallbladder and bile ducts: No calcified stone. No ductal dilation. Pancreas: Unremarkable. No ductal dilation. Spleen: Unremarkable. Adrenals: No mass. Kidneys and ureters: The kidneys enhance symmetrically. No hydronephrosis. No solid mass. Stomach and bowel: Normal appearance of the bowel without pathological dilatation. There is a small blush of contrast noted at the distal rectum, just at the anal verge (series 6, image 149). Appendix: Appendix is seen without focal inflammatory change. PELVIS: Bladder: Unremarkable. Reproductive: Unremarkable as visualized. Peritoneum: No free fluid. No free air. Lymph nodes: No lymphadenopathy is evident. Bones: No acute osseous abnormality. LOWER EXTREMITIES: Soft tissues: The soft tissues are unremarkable. Lymph nodes: No lymphadenopathy is evident. Bones: No acute osseous abnormality. IMPRESSION: There is a small blush of contrast noted at the distal rectum, just at the anal verge (series 6, image 149), which may be the source of the patient's GI bleed. 1.3 cm nonobstructing calcified gallstones. Biliary sludge in the gallbladder. /[place] DICTATED BY: TOMMIE ESTEVEZ DO DATE: 02/04/251636 ELECTRONICALLY SIGNED BY: TOMMIE ESTEVEZ DO DATE: 02/04/251636 Assessment/Plan: ASSESSMENT: Acute blood loss anemia POA Acute GI bleed POA Recent EGD and colonoscopy POA VITAMIN B12 DEFICIENCY, POA Iron-deficiency anemia, POA History of alcohol abuse POA Cholelithiasis without evidence of acute cholecystitis per CT POA Stable 1.4 cm hypodense focus in the left hepatic lobe per CT POA Stable small umbilical hernia with herniating fat per CT POA PLAN: Gastrointestinal hemorrhage, POA: * Patient presented with 2 episodes of bloody stools since his discharge last time. * Patient's hemoglobin has been stable at 9 * Received 1 unit of PRBC so far. * Gastroenterology recommended IR embolization, however IR recommended CT angio before embolization. * CT angio performed on 02/04/2025 demonstrated small blush of contrast at the distal rectum just at the anal verge. * Further recommendations from Gastroenterology pending. * Transfuse blood if HGB less than 7. * Continue to monitor with serial labs and follow gastroenterology recommendations for now. Anemia, POA: * Patient's hemoglobin on admission was 9 and has remained stable with today's hemoglobin at 8.6. * Anemia panel revealed a vitamin B12 level of 157, and iron-deficiency with a transferrin saturation of 7.9. * We will start the patient on IV Venofer, and 1000 mcg vitamin B12 daily. * Continue to monitor hemoglobin with serial labs. DVT prophylaxis with SCDs. GI prophylaxis with Protonix 40 mg IV OD. Discharge Instructions: GI Bleeding / Anemia No further bleeding noted prior to discharge Continue iron supplementation and vitamin B12 as prescribed Eat a soft diet, then advance to a high-fiber diet as tolerated Follow-Up Gastroenterology: Follow up in 12 weeks Primary Care: Follow up for repeat blood counts Diet Soft diet initially High-fiber diet to help prevent constipation and diverticular complications Avoid alcohol When to Seek Immediate Care Go to the ER if you develop: New or worsening bloody stools Black stools Dizziness or fainting Chest pain or shortness of breath Severe abdominal pain Home Medications: Active Scripts Pantoprazole Sodium (Protonix) 40 Mg Ectab, 1 TAB PO DAILY for 30 Days, #30 TAB 0 Refills Prov:DESEAN MARCIAL AGACNP 02/02/25 New Medications: Ferrous Sulfate (Iron) 325 Mg (65 Mg Iron) Tablet 1 TAB PO DAILY for 30 Days, #30 TAB 0 Refills Pantoprazole Sodium (Pantoprazole Sodium) 40 Mg Tablet. 1 TAB PO DAILY for 30 Days, #30 TAB 0 Refills Psyllium Husk (Metamucil) 0.4 Gram Capsule 1 CAP PO BID for 30 Days, #60 CAP 0 Refills Cyanocobalamin (Vitamin B-12) (Vitamin B-12) 1,000 Mcg Tablet 1000 MCG PO DAILY, #30 TAB Continued Medications: Pantoprazole Sodium (Protonix) 40 Mg Ectab 1 TAB PO DAILY for 30 Days, #30 TAB 0 Refills Time spent arranging discharge: 1-30 minutes ATTESTATION BY PHYSICIAN I have seen and examined the patient. I reviewed the documentation, medical decision making, and treatment plan as noted by the resident physician above. I agree with the findings and plan of care. ESVIN FISHMAN MD, HEMA MD Feb 06, 2025 16:24
== END 2025-02-06 19:00 | disposition home or self-care (01) | DRG 378 ==
LOC: EDH 17:10 → EDHIP 17:11 → 4DH 02-04 01:40
PROVIDERS: ADMIT Internal Medicine; ATTEND Internal Medicine
PROC: 30233N1 Transfusion of Nonautologous Red Blood Cells into Peripheral Vein, Percutaneous Approach (ICD-10-PCS; principal; 2025-02-03)
DX: K92.2 Gastrointestinal hemorrhage, unspecified (principal); D62 Acute posthemorrhagic anemia; D50.9 Iron deficiency anemia, unspecified; E53.8 Deficiency of other specified B group vitamins; K42.9 Umbilical hernia without obstruction or gangrene; K80.20 Calculus of gallbladder without cholecystitis without obstruction; K64.9 Unspecified hemorrhoids; Z86.0100 Personal history of colon polyps, unspecified
CPT/HCPCS: 36415; 74174; 74177; 80048; 80053; 82270; 82550; 82607; 82728; 83735; 84484; 85014; 85018; 85025; 85027; 85610; 85730; 86850; 86900; 86901; 86923; 93005; 99285; G0378; J1756; J2405; J2470; J7050; P9016; Q9967